=== PATIENT | female | born 1975 ===

== ENCOUNTER 2017-05-08 07:48 | Emergency (ER) | payer SELFPAY ==
[2017-05-08 08:04] VITALS: PULSE 105; RESP 18; TEMP 99.1; O2SAT 100
[2017-05-08 08:05] VITALS: BP 142/88
[2017-05-08] MEDS ORDERED: Amoxicillin-Clav 875-125 mg Tab PO STA (08:18)
--- NOTE | 2017-05-08 08:19 | ED PDOC ---
Arrival/HPI - General Chief Complaint: Dental Pain Time Seen by Provider: 05/08/17 07:57 Historian: Patient - History of Present Illness Narrative History of Present Illness (Text): 05/08/17 08:05 Ignacia Costa is a 41 year old female who presents to the emergency department complaining of Right lower and Left upper gum pain after recent extraction and sores to gums behind two front teeth for a few days. Patient states that she was recently in a [place] [facility] and had 3 teeth extracted (2 from upper left and 1 from lower right) and has experienced pain and swelling to those areas. Patient says that she began to eat with only her two front teeth but began to develop sores to the gums behind them. Patient states that she intermittently bleeds from her gums and notes to have experienced a fever of 101 degrees which resolved after taking Tylenol. Patient confirms to have gargled with peroxide, eaten soft foods and has taken Tylenol and Motrin for pain to no relief. Patient denies any other complaints at this time. PMD: None Time/Duration: < week Symptom Onset: Gradual Symptom Course: Unchanged Severity Level: Mild Activities at Onset: Light Context: Home Past Medical History - Provider Review Nursing Documentation Reviewed: Yes - Infectious Disease Hx of Infectious Diseases: None - Psychiatric Hx Substance Use: No - Surgical History Hx Section: Yes (x1) Family/Social History - Physician Review Nursing Documentation Reviewed: Yes Family/Social History: No Known Family HX Smoking Status: Light Smoker < 10 Cigarettes Daily Hx Alcohol Use: No Hx Substance Use: No Allergies/Home Meds Allergies/Adverse Reactions: Allergies No Known Allergies Allergy (Verified 05/08/17 08:12) Review of Systems - Physician Review All systems were reviewed & negative as marked: Yes - Review of Systems Eyes: absent: Vision Changes ENT: Other (Pain to gum s/p extraction and sores to upper gums behind front teeth). absent: Hearing Changes Respiratory: absent: SOB, Cough Cardiovascular: absent: Chest Pain Gastrointestinal: absent: Abdominal Pain Genitourinary Female: absent: Dysuria, Frequency Physical Exam Vital Signs Reviewed: Yes Vital Signs Temp Pulse Resp BP Pulse Ox 05/08/17 07:58 99.1 F 105 H 18 142/88 100 Temperature: Afebrile Blood Pressure: Normal Pulse: Tachycardic Respiratory Rate: Normal Appearance: Positive for: Well-Appearing, Non-Toxic, Comfortable Pain Distress: None Mental Status: Positive for: Alert and Oriented X 3 - Systems Exam Head: Present: Atraumatic, Normocephalic Pupils: Present: PERRL Extroacular Muscles: Present: EOMI Conjunctiva: Present: Normal Mouth: Present: Other (Right lower gums normal; Left Upper gums miidy erythematous, slight tender to touch, no bleed, pus, or fluctuants; Sores to gums behind two front teeth) Neck: Present: Normal Range of Motion Respiratory/Chest: Present: Clear to Auscultation, Good Air Exchange. No: Respiratory Distress, Accessory Muscle Use Cardiovascular: Present: Regular Rate and Rhythm, Normal S1, S2. No: Murmurs Abdomen: Present: Normal Bowel Sounds. No: Tenderness, Distention, Peritoneal Signs Back: Present: Normal Inspection Upper Extremity: Present: Normal Inspection. No: Cyanosis, Edema Lower Extremity: Present: Normal Inspection. No: Edema Neurological: Present: GCS=15, CN II-XII Intact, Speech Normal Skin: Present: Warm, Dry, Normal Color. No: Rashes Psychiatric: Present: Alert, Oriented x 3, Normal Insight, Normal Concentration Medical Decision Making ED Course and Treatment: 05/08/17 08:05 Impression: Ignacia Costa is a 41 year old female complaining of right lower and Left upper gum pain s/p extraction and bumps to gums behind to front teeth. Differential Diagnosis included but are not limited to: Toothache Plan: -- Augmentin and Toradol -- Patient will f/u with her dentist this week. - Medication Orders Current Medication Orders: Discontinued Medications Amoxicillin/Clavulanate Potassium (Augmentin 875 Mg-125 Mg Tab) 1 tab PO STAT STA PRN Reason: Protocol Stop: 05/08/17 08:19 Last Admin: 05/08/17 08:44 Dose: 1 tab Ketorolac Tromethamine (Toradol) 60 mg IM STAT STA Stop: 05/08/17 08:19 Last Admin: 05/08/17 08:43 Dose: 60 mg - Scribe Statement The provider has reviewed the documentation as recorded by the Alexandra Vivas Provider Scribe Attestation: All medical record entries made by the Burakibleeanna were at my direction and personally dictated by me. I have reviewed the chart and agree that the record accurately reflects my personal performance of the history, physical exam, medical decision making, and the department course for this patient. I have also personally directed, reviewed, and agree with the discharge instructions and disposition. Disposition/Present on Arrival - Present on Arrival Any Indicators Present on Arrival: No History of DVT/PE: No History of Uncontrolled Diabetes: No Urinary Catheter: No History of Decub. Ulcer: No History Surgical Site Infection Following: None - Disposition Have Diagnosis and Disposition been Completed?: Yes Diagnosis: Pain in gums Disposition: HOME/ ROUTINE Disposition Time: 08:56 Patient Plan: Discharge Condition: IMPROVED Discharge Instructions (ExitCare): Toothache (ED) Additional Instructions: Ms Costa, thank you for letting us take care of you today. Your provider was Dr. Garcia. You were treated for Gum Pain. The emergency medical care you received today was directed at your acute symptoms. If you were prescribed any medication, please fill it and take as directed. It may take several days for your symptoms to resolve. Return to the Emergency Department if your symptoms worsen, do not improve, or if you have any other problems. Please contact your doctor or call one of the physicians/clinics you have been referred to that are listed on the Patient Visit Information form that is included in your discharge packet. Bring any paperwork you were given at discharge with you along with any medications you are taking to your follow up visit. Our treatment cannot replace ongoing medical care by a primary care provider (PCP) outside of the emergency department. Thank you for allowing the [facility] team to be part of your care today. If you had an X-Ray or CT scan: A Radiologist will review the ED reading if any change in treatment is needed we will contact you. If you had a blood, urine, or wound culture: It will take several days for the results, if any change in treatment is needed we will contact you. If you had an STI test: It will take 48 hours for the results. Please call after 1 week if you have not heard back. Prescriptions: Acetaminophen with Codeine [Tylenol with Codeine #3 Tablet] 1 each PO Q4 #14 tablet Amoxicillin/Clavulanate [Augmentin 875 MG-125 MG] 1 tab PO BID #14 tab Referrals: Jerri Kate, [Primary Care Provider] - Follow up with primary Forms: [employer] ([place]ronesian), WORK NOTE
== END 2017-05-08 08:57 | disposition home or self-care (01) ==
LOC: ED 07:48
DX: K06.8 Other specified disorders of gingiva and edentulous alveolar ridge (principal); F17.210 Nicotine dependence, cigarettes, uncomplicated
CPT/HCPCS: 96372; 99282; J1885

== ENCOUNTER 2018-05-14 07:38 | Emergency (ER) | payer SELFPAY ==
[2018-05-14 08:00] VITALS: RESP 18; TEMP 98.1; O2SAT 99; BMI 41.1
--- NOTE | 2018-05-14 09:13 | ED PDOC ---
Arrival/HPI - General Chief Complaint: Upper Extremity Problem/Injury Time Seen by Provider: 05/14/18 07:41 Historian: Patient - History of Present Illness Narrative History of Present Illness (Text): 05/14/18 09:10 Patient is a 42 yo female, denies any past medical history, presents to the Emergency Department complaining of three weeks of persistent and severe neck pain. Patient denies known injury or trauma. States that she "woke up with neck pain" three weeks ago. Pain is constant, worse with turning her head and movements, and will radiate to shoulder and down left arm. Patient reports sensation of "dropping things" with her left hand because of wrist discomfort but feels this was happening before developing neck pain. No leg weakness. No headaches. Denies visual symptoms. No fever. Time/Duration: > week Symptom Onset: Gradual Symptom Course: Worsening Past Medical History - Infectious Disease Hx of Infectious Diseases: None - Reproductive Menopause: No - Psychiatric Hx Substance Use: No - Surgical History Hx Section: Yes (x1) - Anesthesia Hx Anesthesia: No Family/Social History Family/Social History: Unknown Family HX Smoking Status: Light Smoker < 10 Cigarettes Daily Hx Alcohol Use: No Hx Substance Use: No Allergies/Home Meds Allergies/Adverse Reactions: Allergies shrimp Allergy (Verified 05/14/18 07:52) ANAPHYLAXIS Review of Systems - Review of Systems Constitutional: absent: Fatigue, Fevers Eyes: absent: Vision Changes ENT: absent: Hearing Changes, Sore Throat, Sinus Congestion Respiratory: absent: SOB Cardiovascular: absent: Chest Pain Gastrointestinal: absent: Abdominal Pain Musculoskeletal: Neck Pain, Other (left shoulder pain) Skin: absent: Rash Neurological: absent: Headache, Dizziness Endocrine: absent: Polyuria Physical Exam Vital Signs Reviewed: Yes Vital Signs Temp Pulse Resp BP Pulse Ox 05/14/18 12:11 82 18 159/85 H 99 05/14/18 07:54 98.1 F 88 18 149/80 99 Temperature: Afebrile Blood Pressure: Hypertensive Appearance: Positive for: Uncomfortable Pain Distress: Severe Mental Status: Positive for: Alert and Oriented X 3 - Systems Exam Head: Present: Atraumatic Pupils: Present: PERRL Extroacular Muscles: Present: EOMI Mouth: Present: Moist Mucous Membranes Pharnyx: No: ERYTHEMA Nose (Internal): Present: Normal Inspection, No Active Bleeding Neck: Present: MIDLINE TENDERNESS, Paraspinal Tenderness, Trachea Midline, Other (difficulty rotating neck due to pain). No: Meningeal Signs, JVD, Lymphadenopathy Respiratory/Chest: Present: Clear to Auscultation. No: Respiratory Distress Cardiovascular: Present: Regular Rate and Rhythm Abdomen: No: Tenderness Back: No: CVA Tenderness Upper Extremity: Present: Other (palpable pain to left wrist no edema or erythema, median/radial/ulnar motor and sensory function intact, no erythema, strong distal pulses, no elbow pain). No: Cyanosis, Edema Lower Extremity: Present: Neurovascularly Intact. No: Edema Neurological: Present: Speech Normal, Motor Func Grossly Intact, Normal Sensory Function Skin: Present: Warm Psychiatric: Present: Alert, Normal Insight, Normal Concentration Medical Decision Making ED Course and Treatment: Patient has had symptoms for several weeks, no known trauma. She states left wrist discomfort prior to neck pain. On exam, median/radial/ulnar motor and sensory function intact. There appears to be focal discomfort with range of motion and palpation of wrist with no elbow or shoulder weakness. Distal pulses strong. MRI ordered as patient with complaint of intermittent left hand weakness and neck pain. 05/14/2018 10:57 Cervical Spinal MRI IMPRESSION: Unremarkable non-contrast enhanced MRI of the cervical spine. Dictator: Alvaro Luciano MD 05/14/18 11:27 Upon re-evaluation, patient has significant improvement in pain and muscle spasms after taking Toradol and Valium. Patient will be discharge with prescription of Naprosyn and Valium. Advised to not work/drive if taking Valium. Suspect in addition wrist sprain vs. carpal tunnel syndrome of wrist, will place wrist immobilizer and d/c with nsaids. Patient will follow-up with her PMD. Treatment plan reviewed with patient stressed need for close follow-up. - RAD Interpretation Radiology Orders: 05/14/18 08:01 SPINAL CANAL CERVICAL W/O CONT [MRI] Stat 05/14/18 11:03 WRIST, LEFT 3 VIEWS [RAD] Stat - Medication Orders Current Medication Orders: Discontinued Medications Diazepam (Valium) 5 mg PO ONCE ONE PRN Reason: Protocol Stop: 05/14/18 08:06 Last Admin: 05/14/18 08:35 Dose: 5 mg Ketorolac Tromethamine (Toradol) 30 mg IVP ONCE ONE Stop: 05/14/18 08:06 Last Admin: 05/14/18 08:35 Dose: 30 mg MAR Pain Assessment Document 05/14/18 08:35 LM (Rec: 05/14/18 08:35 [id number] Pain Reassessment Is this a pain reassessment? No Sleep Is patient sleeping during reassessment? No Presence of Pain Presence of Pain Yes Pain Scale Used Pain Scale Used Numeric Location Pain Location Body Site Neck Description Intensity of Pain at present 8 IVP Administration Document 05/14/18 08:35 LM (Rec: 05/14/18 08:35 [id number]) Charges for Administration # of IVP Administrations 1 Disposition/Present on Arrival - Present on Arrival Any Indicators Present on Arrival: No History of DVT/PE: No History of Uncontrolled Diabetes: No Urinary Catheter: No History of Decub. Ulcer: No History Surgical Site Infection Following: None - Disposition Have Diagnosis and Disposition been Completed?: Yes Diagnosis: Torticollis, Wrist sprain Disposition: HOME/ ROUTINE Disposition Time: 12:00 Patient Plan: Discharge Condition: GOOD Discharge Instructions (ExitCare): Wrist Sprain (DC), Torticollis (DC) Prescriptions: Naproxen 250 mg PO BID PRN #10 tablet PRN Reason: Pain, Mild (1-3) diaZEpam [Valium] 2 mg PO BID PRN #10 tab PRN Reason: Muscle Spasm Referrals: [facility] [Outside] - Follow up with primary [facility] [Outside] - Follow up with primary FAMILY PROVIDER,NO [Primary Care Provider] - Follow up with primary Gregoria Robles MD [Staff Provider] - Follow up with primary Forms: [employer] ([place]i), WORK NOTE
--- NOTE | 2018-05-14 10:58 | MRI ---
Date of service: 05/14/2018 PROCEDURE: MR CERVICAL SPINE WITHOUT CONTRAST HISTORY: neck pain, left arm weakness COMPARISON: None available. TECHNIQUE: Multiecho multiplanar sequences were performed through the cervical spine without the use of intravenous contrast. FINDINGS: There is some straightening of the spine which may be positional Craniocervical junction unremarkable. Vertebral body heights preserved. No marrow signal abnormality. Normal cervical cord. No paraspinal abnormality. C2-C3: No disc herniation, spinal canal stenosis or neural foraminal narrowing. C3-C4: No disc herniation, spinal canal stenosis or neural foraminal narrowing. C4-C5: No disc herniation, spinal canal stenosis or neural foraminal narrowing. C5-C6: No disc herniation, spinal canal stenosis or neural foraminal narrowing. C6-C7: No disc herniation, spinal canal stenosis or neural foraminal narrowing. C7-T1: No disc herniation, spinal canal stenosis or neural foraminal narrowing. OTHER FINDINGS: None. IMPRESSION: Unremarkable non contrast enhanced MRI of the cervical spine.
--- NOTE | 2018-05-14 11:44 | RAD ---
Date of service: 05/14/2018 PROCEDURE: Left Wrist Radiographs. HISTORY: left wrist pain COMPARISON: None. FINDINGS: BONES: Bone alignment and mineralization are normal. There is no acute displaced fracture or bone destruction. JOINTS: Normal. No dislocation. SOFT TISSUES: Normal. OTHER FINDINGS: None. IMPRESSION: No acute fracture or dislocation.
[2018-05-14 12:12] VITALS: BP 159/85; PULSE 82
== END 2018-05-14 12:12 | disposition home or self-care (01) ==
LOC: ED 07:38
DX: M43.6 Torticollis (principal); S63.502A Unspecified sprain of left wrist, initial encounter; X58.XXXA Exposure to other specified factors, initial encounter; Y92.9 Unspecified place or not applicable
CPT/HCPCS: 72141; 73110; 96374; 99284; J1885

== ENCOUNTER 2018-07-18 08:52 | Emergency (ER) | payer BC ==
[2018-07-18 09:28] VITALS: RESP 18; O2SAT 100; BMI 42.0
[2018-07-18] MEDS ORDERED: DiphenhydrAMINE 50 mg/ml Inj IVP STA (09:38)
[2018-07-18] MEDS ORDERED: Sodium Chloride 0.9% 1,000 ML IV STA (09:39)
--- NOTE | 2018-07-18 09:43 | ED PDOC ---
Arrival/HPI - General Chief Complaint: GI Problem Time Seen by Provider: 07/18/18 09:11 Historian: Patient - History of Present Illness Narrative History of Present Illness (Text): 42 y/o F s/p C section presenting to the Emergency department complaining of headaches, nausea, and vomiting x 4 days. Patient notes associated dizzyness, chills, ear pain, and weakness. Patient is gradual in onset with squeezing s ensation bilaterally episodically lasting for a couple of minutes at a time. She denies any fevers, chest pain, shortness of breath, abdominal pain, diarrhea, back pain, hematemesis, syncope, or any other complaint. Time/Duration: < week (4 days) Symptom Onset: Gradual Symptom Course: Unchanged Activities at Onset: Light Context: Home Past Medical History - Provider Review Nursing Documentation Reviewed: Yes - Travel History Have you recently traveled outside [place] w/in the past 3 mons?: No - Infectious Disease Hx of Infectious Diseases: None - Psychiatric Hx Substance Use: No - Surgical History Hx Section: Yes (x1) - Anesthesia Hx Anesthesia: No Family/Social History - Physician Review Nursing Documentation Reviewed: Yes Family/Social History: Unknown Family HX Smoking Status: Light Smoker < 10 Cigarettes Daily Hx Alcohol Use: No Hx Substance Use: No Allergies/Home Meds Allergies/Adverse Reactions: Allergies shrimp Allergy (Verified 07/18/18 09:15) ANAPHYLAXIS Review of Systems - Physician Review All systems were reviewed & negative as marked: Yes - Review of Systems Constitutional: Fatigue Eyes: Normal ENT: Normal Respiratory: Normal. absent: SOB, Cough Cardiovascular: Normal. absent: Chest Pain, Syncope Gastrointestinal: Nausea, Vomiting. absent: Abdominal Pain, Hematemesis Genitourinary Female: Normal. absent: Dysuria, Frequency Musculoskeletal: Normal. absent: Back Pain, Neck Pain Skin: absent: Rash Neurological: Headache, Dizziness. absent: Speech Changes Endocrine: Normal Hemo/Lymphatic: Normal Psychiatric: Normal Physical Exam Vital Signs Reviewed: Yes Vital Signs Temp Pulse Resp BP Pulse Ox 07/18/18 09:19 97.8 F 110 H 18 134/96 H 100 Temperature: Afebrile Blood Pressure: Hypertensive Pulse: Tachycardic Respiratory Rate: Normal Appearance: Positive for: Well-Appearing, Non-Toxic, Comfortable Pain Distress: None Mental Status: Positive for: Alert and Oriented X 3 - Systems Exam Head: Present: Atraumatic, Normocephalic Pupils: Present: PERRL Extroacular Muscles: Present: EOMI Conjunctiva: Present: Normal Mouth: Present: Moist Mucous Membranes Neck: Present: Normal Range of Motion, Other (tenderness to palpation of Cervi caitlyn Spine) Respiratory/Chest: Present: Clear to Auscultation, Good Air Exchange. No: Respiratory Distress, Accessory Muscle Use Cardiovascular: Present: Regular Rate and Rhythm, Normal S1, S2. No: Murmurs Abdomen: No: Tenderness, Distention, Peritoneal Signs Back: Present: Normal Inspection Upper Extremity: Present: Normal Inspection. No: Cyanosis, Edema Lower Extremity: Present: Normal Inspection. No: Edema Neurological: Present: GCS=15, CN II-XII Intact, Speech Normal, Motor Func Grossly Intact, Normal Sensory Function, Normal Cerebellar Funct, Gait Normal Skin: Present: Warm, Dry, Normal Color. No: Rashes Psychiatric: Present: Alert, Oriented x 3, Normal Insight, Normal Concentration Medical Decision Making ED Course and Treatment: 07/18/18 09:45 Impression: 42 year old female presents to the Emergency department complaining of headache, nausea, and vomiting x 4 days Differential Diagnoses Include But Are Not Limited To: Migraine Tension BOO Cluster BOO Subarachnoid Hemorrhage Plan: -- CT Head -- Labs -- Benadryl -- Toradol -- Reglan -- IVF -- UA -- Reassess and disposition Progress Notes: 07/18/18 10:28 UA unremarkable for bacteria in urine. Pending CTH. Patient reassessed reporting improvement in BOO, but continued nausea. Reglan infusing. Will continue to monitor. 07/18/18 11:30 CTH shows empty sella turcica. Patient updated on details and advised to continue supportive measures at home. Scripts as well as follow up with neurologist provided. She is stable for discharge. - RAD Interpretation Narrative RAD Interpretations (Text): 07/18/18 12:27 CT Head reviewed, shows: IMPRESSION: No intracranial mass, hemorrhage or evidence of acute infarct. "Empty sella" noted. - Scribe Statement The provider has reviewed the documentation as recorded by the Scribe Veronica Davis All medical record entries made by the Scribe were at my direction and personally dictated by me. I have reviewed the chart and agree that the record accurately reflects my personal performance of the history, physical exam, medical decision making, and the department course for this patient. I have also personally directed, reviewed, and agree with the discharge instructions and di sposition. Disposition/Present on Arrival - Present on Arrival Any Indicators Present on Arrival: No History of DVT/PE: No History of Uncontrolled Diabetes: No Urinary Catheter: No History of Decub. Ulcer: No History Surgical Site Infection Following: None - Disposition Have Diagnosis and Disposition been Completed?: Yes Diagnosis: Empty sella syndrome, Headache Disposition: HOME/ ROUTINE Disposition Time: 11:53 Patient Plan: Discharge Condition: IMPROVED Discharge Instructions (ExitCare): Migraine Headache (DC), Headache, Adult (DC) Prescriptions: Ibuprofen [Motrin Tab] 600 mg PO Q6H PRN 6 Days #24 tab PRN Reason: Pain, Moderate (4-7) Metoclopramide HCl [Metoclopramide HCl Odt] 10 mg PO PRN PRN #6 tab.rapdis PRN Reason: Nausea/Vomiting Referrals: Freddy Roche MD [Staff Provider] - Follow up with primary Gregoria Robles MD [Medical Doctor] - Follow up with primary [facility] [Outside] - Follow up with primary Forms: [employer] (Citizen Of [place]), WORK NOTE
[2018-07-18 10:01] LABS: URINE BILIRUBIN NEGATIVE (NEGATIVE); URINE BLOOD NEGATIVE (NEGATIVE); URINE GLUCOSE (UA) NEGATIVE (NEGATIVE); URINE LEUKOCYTE ESTERASE NEGATIVE Leu/uL (NEGATIVE); URINE PROTEIN TRACE mg/dL (<30 mg/dL); URINE UROBILINOGEN 0.2 E.U./dL (<1 E.U./dL)
[2018-07-18 10:03] LABS: URINE APPEARANCE CLEAR (CLEAR); URINE COLOR YELLOW (YELLOW)
[2018-07-18 10:16] LABS: URINE BACTERIA OCC (NEG); URINE RBC 0 - 2 /hpf (0-2); URINE WBC 0 - 2 /hpf (0-6)
[2018-07-18 10:21] LABS: EOS % 0.4 % (1.5-5.0); GRAN # 1.47 (1.4-6.5); HEMOGLOBIN 12.5 g/dL (12.0-16.0); LYMPH # 2.3 (1.2-3.4); MEAN CELL VOLUME 83.7 fl (80.0-105.0); MEAN CORPUSCULAR HEMOGLOBIN 28.7 pg (25.0-35.0); MEAN CORPUSCULAR HGB CONC 34.3 g/dl (31.0-37.0); MEAN PLATELET VOLUME 10.1 fl (7.0-11.0); MONO # 0.8 (0.1-0.6); MONO % 16.6 % (1.0-6.0); RBC 4.35 10^6/uL (3.5-6.1); RED CELL DISTRIBUTION WIDTH 16.4 % (11.5-14.5); WHITE BLOOD COUNT 4.6 10^3/ul (4.5-11.0)
[2018-07-18 10:31] LABS: BLOOD UREA NITROGEN 8 mg/dL (7-21); CALCIUM 9.3 mg/dL (8.4-10.5); GFR NON-AFRICAN AMERICAN > 60
[2018-07-18 10:32] LABS: ALB/GLOB RATIO 0.8 (1.1-1.8); ALT/SGPT 30 U/L (7-56); AST/SGOT 27 U/L (14-36)
--- NOTE | 2018-07-18 11:31 | CT ---
Date of service: 07/18/2018 PROCEDURE: CT HEAD WITHOUT CONTRAST. HISTORY: BOO for 3 days COMPARISON: None available. TECHNIQUE: Axial computed tomography images were obtained through the head/brain without intravenous contrast. Radiation dose: Total exam DLP = 947.41 mGy-cm. This CT exam was performed using one or more of the following dose reduction techniques: Automated exposure control, adjustment of the mA and/or kV according to patient size, and/or use of iterative reconstruction technique. FINDINGS: HEMORRHAGE: No intracranial hemorrhage. BRAIN: No mass effect or edema. No atrophy or chronic microvascular ischemic changes. Incidentally noted flattening of the pituitary along the floor of the sella turcica, so-called "empty sella". There is a known association with headache. VENTRICLES: Unremarkable. No hydrocephalus. CALVARIUM: Unremarkable. PARANASAL SINUSES: Unremarkable as visualized. No significant inflammatory changes. MASTOID AIR CELLS: Unremarkable as visualized. No inflammatory changes. OTHER FINDINGS: None. IMPRESSION: No intracranial mass, hemorrhage or evidence of acute infarct. "Empty sella" noted. See above
[2018-07-18 12:42] VITALS: BP 133/91; PULSE 91; TEMP 98
== END 2018-07-18 12:30 | disposition home or self-care (01) ==
LOC: ED 08:52
DX: R51 Headache (principal); E23.6 Other disorders of pituitary gland
CPT/HCPCS: 70450; 80053; 81001; 85025; 96374; 96375; 99284; J1200; J1885; J2765; J7030

== ENCOUNTER 2018-08-01 07:47 | Emergency (ER) | payer BC ==
[2018-08-01 07:51] VITALS: BMI 43.8
[2018-08-01 08:55] LABS: BASO # 0.01 K/mm3 (0.0-2.0); BASO % 0.2 % (0.0-3.0); EOS % 0.4 % (1.5-5.0); GRAN % 26.7 % (50.0-68.0); HEMOGLOBIN 9.7 g/dL (12.0-16.0); LYMPH # 2.5 (1.2-3.4); LYMPH % 48.5 % (22.0-35.0); MEAN CELL VOLUME 84.9 fl (80.0-105.0); MEAN CORPUSCULAR HEMOGLOBIN 28.7 pg (25.0-35.0); MEAN CORPUSCULAR HGB CONC 33.8 g/dl (31.0-37.0); MEAN PLATELET VOLUME 10.3 fl (7.0-11.0); MONO # 1.3 (0.1-0.6); MONO % 24.2 % (1.0-6.0); PLATELET COUNT 148 10^3/uL (120.0-450.0); RBC 3.38 10^6/uL (3.5-6.1); RED CELL DISTRIBUTION WIDTH 16.8 % (11.5-14.5); WHITE BLOOD COUNT 5.2 10^3/uL (4.5-11.0)
--- NOTE | 2018-08-01 09:09 | ED PDOC ---
Arrival/HPI - General Chief Complaint: Chest Pain Time Seen by Provider: 08/01/18 08:13 Historian: Patient - History of Present Illness Narrative History of Present Illness (Text): 08/01/18 09:00 A 42 year old female, whose past medical history includes , presents to the emergency department complaining of chest pain for the past few days. Patient describes pain as left-sided pressure. Mentions also experiencing dyspne a on exertion. Patient denies any fever, or any other complaints at this time. No PMD Past Medical History - Provider Review Nursing Documentation Reviewed: Yes - Infectious Disease Hx of Infectious Diseases: None - Reproductive Menopause: No - Cardiac Hx Hypertension: Yes - Pulmonary Hx Respiratory Disorders: No - Neurological Other/Comment: empty sella syndrom - HEENT Hx HEENT Disorder: No - Renal Hx Renal Disorder: No - Genitourinary/Gynecological Hx Genitourinary Disorders: No - Psychiatric Hx Substance Use: No - Surgical History Hx Section: Yes (x1) - Anesthesia Hx Anesthesia: No Family/Social History - Physician Review Nursing Documentation Reviewed: Yes Family/Social History: No Known Family HX Smoking Status: Light Smoker < 10 Cigarettes Daily Hx Alcohol Use: No Hx Substance Use: No Allergies/Home Meds Allergies/Adverse Reactions: Allergies shrimp Allergy (Verified 08/01/18 07:58) ANAPHYLAXIS Review of Systems - Physician Review All systems were reviewed & negative as marked: Yes - Review of Systems Constitutional: absent: Fevers, Night Sweats Respiratory: absent: SOB Cardiovascular: absent: Chest Pain Gastrointestinal: Abdominal Pain. absent: Diarrhea, Nausea, Vomiting Neurological: absent: Headache, Dizziness Physical Exam Vital Signs Reviewed: Yes Vital Signs Temp Pulse Resp BP Pulse Ox 08/01/18 07:55 98.9 F 108 H 20 118/75 100 Temperature: Afebrile Blood Pressure: Normal Pulse: Regular Respiratory Rate: Normal Appearance: Positive for: Well-Appearing, Non-Toxic, Comfortable, Other (obese) Pain Distress: None Mental Status: Positive for: Alert and Oriented X 3 - Systems Exam Head: Present: Atraumatic, Normocephalic Pupils: Present: PERRL Extroacular Muscles: Present: EOMI Conjunctiva: Present: Normal Mouth: Present: Moist Mucous Membranes Neck: Present: Normal Range of Motion Respiratory/Chest: Present: Clear to Auscultation, Good Air Exchange. No: Respiratory Distress, Accessory Muscle Use Cardiovascular: Present: Regular Rate and Rhythm, Normal S1, S2. No: Murmurs Abdomen: No: Tenderness, Distention, Peritoneal Signs Rectal: Present: Other (patient refuses.) Back: Present: Normal Inspection Upper Extremity: Present: Normal Inspection. No: Cyanosis, Edema Lower Extremity: Present: Normal Inspection. No: Edema Neurological: Present: GCS=15, CN II-XII Intact, Speech Normal Skin: Present: Warm, Dry, Normal Color. No: Rashes Psychiatric: Present: Alert, Oriented x 3, Normal Insight, Normal Concentration Medical Decision Making ED Course and Treatment: 08/01/18 09:04 Impression: 42 year old female with chest pain. Plan: -- EKG -- Chest X-ray -- Angio Chest CT -- Labs -- Urinalysis -- Reassess and disposition Prior Visits: Notes and results from previous visits were reviewed. Patient was last seen in the emergency department on 07/18/2018 for headaches, nausea, and vomiting. patient was discharged home. Progress Notes: EKG: Ordered, reviewed, and independently interpreted the EKG. Rate : 119 BPM Rhythm : Sinus tachycardia Interpretation : No ST-segment elevations or depressions, no T-wave inversions, normal intervals. Comparison : No previous EKG for comparison. 08/01/2018 11:52 Chest X-ray IMPRESSION: No active disease. Dictator: Jenn Vila MD 08/01/2018 12:[address] IMPRESSION: Suboptimal examination due to missed olus, allowing for this no CTA evidence for acute central pulmonary embolism. Clear lungs. Dictator: Jenn Vila MD Leaving Against Medical Advice (AMA): The patient is choosing to leave against medical advice. I have personally e xplained to the patient that choosing to do so may result in permanent bodily harm or . I have discussed at great length that without further evaluation and monitoring there may be unforeseen circumstances and/or deterioration causing permanent bodily harm or as a result of their choice. The patient is alert, oriented, and shows the mental capacity to make clear decisions regarding the patients health care at this time. The patient continues to wish to leave against medical advice. In light of the patients decision to leave against medical advice, follow-up has been arranged and the patient is aware of the importance to following up as instructed. The patient has been advised that they should return to the emergency room immediately if they change their mind at any time, or if their condition begins to change or worsen in any way. 08/01/18 13:[address], request v/q scan, pt refuses, understands risk of blood clot. also requests admission for cp. she refuses. states she will see pmd friday. 08/01/18 15:56 - Lab Interpretations Lab Results: 08/01/18 08:30 Lab Results 08/01/18 08:30: WBC 5.2, RBC 3.38 L, Hgb 9.7 L D, Hct 28.7 L, MCV 84.9, MCH 28.7, MCHC 33.8, RDW 16.8 H, Plt Count 148, MPV 10.3, Gran % 26.7 L, Lymph % (Auto) 48.5 H, [place] % (Auto) 24.2 H, Eos % (Auto) 0.4 L, Baso % (Auto) 0.2, Gran # 1.40, Lymph # (Auto) 2.5, [place] # (Auto) 1.3 H, Eos # (Auto) 0.0, Baso # (Auto) 0.01, Neutrophils % (Manual) Pending, Lymphocytes % (Manual) Pending, Monocytes % (Manual) Pending I have reviewed the lab results: Yes - RAD Interpretation Radiology Orders: 08/01/18 08:18 CHEST PORTABLE [RAD] Stat - Scribe Statement The provider has reviewed the documentation as recorded by the Alexandra Kwok Provider Scribe Attestation: All medical record entries made by the Burakibleeanna were at my direction and person ally dictated by me. I have reviewed the chart and agree that the record accurately reflects my personal performance of the history, physical exam, medical decision making, and the department course for this patient. I have also personally directed, reviewed, and agree with the discharge instructions and disposition. Disposition/Present on Arrival - Present on Arrival Any Indicators Present on Arrival: No History of DVT/PE: No History of Uncontrolled Diabetes: No Urinary Catheter: No History of Decub. Ulcer: No History Surgical Site Infection Following: None - Disposition Have Diagnosis and Disposition been Completed?: Yes Diagnosis: Chest pain, Left against medical advice, Elevated d-dimer Disposition: HOME/ ROUTINE Disposition Time: 12:00 Condition: UNKNOWN Discharge Instructions (ExitCare): Chest Pain, Leaving Against Medical Advice, Chest Pain (ED) Additional Instructions: return to er with worsening symptoms or concerns. Referrals: John Meza MD [Staff Provider] - Follow up with primary Forms: [employer] ([place])
[2018-08-01 09:14] LABS: ALB/GLOB RATIO 0.7 (1.1-1.8); ALBUMIN 3.5 g/dL (3.0-4.8); ALT/SGPT 22 U/L (7-56); AST/SGOT 18 U/L (14-36); BLOOD UREA NITROGEN 9 mg/dL (7-21); CALCIUM 9.2 mg/dL (8.4-10.5); GFR NON-AFRICAN AMERICAN > 60
[2018-08-01 09:23] LABS: B-TYPE NATRIURETIC PEPTIDE 192 pg/mL (0-450); TROPONIN I < 0.01 ng/mL
[2018-08-01 09:26] LABS: INR 1.15; PARTIAL THROMBOPLASTIN TIME 30.8 Seconds (25.1-36.5); PROTHROMBIN TIME 13.3 SECONDS (9.4-12.5)
[2018-08-01 09:35] LABS: LYMPHOCYTE 54 % (22.0-35.0); MONOCYTE 20 % (1.0-6.0); NEUTROPHIL 26 % (50.0-70.0); NUCLEATED RED BLOOD CELL 3 %; PLATELET ESTIMATE NORMAL (NORMAL)
[2018-08-01 10:25] VITALS: RESP 18
[2018-08-01] MEDS ORDERED: Iohexol 350 MG/100 ML VIAL ONE (11:38)
--- NOTE | 2018-08-01 11:55 | RAD ---
Date of service: 08/01/2018 HISTORY: Chest pain COMPARISON: No prior. FINDINGS: LUNGS: The lungs are well inflated and clear. PLEURA: No pleural effusions or pneumothorax. CARDIOVASCULAR: The heart is normal in size. No aortic atherosclerotic calcification present. OSSEOUS STRUCTURES: Within normal limits for the patient's age. VISUALIZED UPPER ABDOMEN: Normal. OTHER FINDINGS: None. IMPRESSION: No active pulmonary disease.
--- NOTE | 2018-08-01 12:38 | CT ---
Date of service: 08/01/2018 PROCEDURE: CT Chest with contrast (Pulmonary Angiogram) HISTORY: sob elevated dimer COMPARISON: Plain radiograph performed earlier the same day. TECHNIQUE: Axial computed tomography images were obtained of the chest in the pulmonary arterial phase of enhancement. Coronal and sagittal reformatted images were created and reviewed. Intravenous contrast dose: 100 mL Omnipaque 350 Radiation dose: Total exam DLP = 459.39 mGy-cm. This CT exam was performed using one or more of the following dose reduction techniques: Automated exposure control, adjustment of the mA and/or kV according to patient size, and/or use of iterative reconstruction technique. FINDINGS: PULMONARY ARTERIES: Examination is suboptimal for evaluation of pulmonary embolism due to missed bolus. Allowing for this, there are no filling defects in the central pulmonary arteries to suggest pulmonary embolism. AORTA: No acute findings. No thoracic aortic aneurysm. LUNGS: There are low lung volumes. No nodule, mass or pulmonary consolidation. PLEURAL SPACES: No effusion or pneumothorax. HEART: No atherosclerotic aortic calcifications or mural plaques present. No cardiomegaly. No significant pericardial effusion. LYMPH NODES: No pathologic lymphadenopathy. BONES, CHEST WALL: Within normal limits for the patient's age. No fracture or destructive lesion OTHER FINDINGS: Unremarkable. IMPRESSION: Suboptimal examination due to missed bolus, allowing for this no CTA evidence for acute central pulmonary embolism. Clear lungs.
[2018-08-01 12:56] VITALS: BP 108/77; PULSE 77; TEMP 98.6; O2SAT 99
--- NOTE | 2018-08-02 09:29 | CARD ---
APPROVED REPORT Date of service: 08/01/2018 EKG Measurement Heart [id number] <Conclusion> Sinus tachycardia Minimal voltage criteria for LVH, may be normal variant NSSTW changes prolonged QTc
== END 2018-08-01 12:56 | disposition home or self-care (01) ==
LOC: ED 07:47
DX: R07.9 Chest pain, unspecified (principal); R79.1 Abnormal coagulation profile; I10 Essential (primary) hypertension; F17.210 Nicotine dependence, cigarettes, uncomplicated
CPT/HCPCS: 71045; 71275; 80053; 82550; 83615; 83735; 83880; 84484; 84702; 85025; 85378; 85610; 85730; 93005; 99284; Q9967

== ENCOUNTER 2018-09-03 10:38 | Inpatient (IN) | payer BC ==
[2018-09-03 11:14] VITALS: BMI 40.7
[2018-09-03] MEDS ORDERED: Sodium Chloride 0.9% 1,000 ML IV STA (11:46)
[2018-09-03 12:13] LABS: BASO # 0.01 K/mm3 (0.0-2.0); BASO % 0.1 % (0.0-3.0); EOS % 0.1 % (1.5-5.0); GRAN # 2.81 (1.4-6.5); HEMOGLOBIN 7.4 g/dL (12.0-16.0); LYMPH # 3.8 (1.2-3.4); LYMPH % 39.4 % (22.0-35.0); MEAN CELL VOLUME 88.9 fl (80.0-105.0); MEAN CORPUSCULAR HEMOGLOBIN 30.3 pg (25.0-35.0); MEAN CORPUSCULAR HGB CONC 34.1 g/dl (31.0-37.0); MEAN PLATELET VOLUME 9.4 fl (7.0-11.0); MONO # 3.1 (0.1-0.6); MONO % 31.4 % (1.0-6.0); PLATELET COUNT 120 10^3/uL (120.0-450.0); RBC 2.44 10^6/uL (3.5-6.1); RED CELL DISTRIBUTION WIDTH 17.3 % (11.5-14.5); URINE BILIRUBIN NEGATIVE (NEGATIVE); URINE BLOOD NEGATIVE (NEGATIVE); URINE GLUCOSE (UA) NEGATIVE (NEGATIVE); URINE LEUKOCYTE ESTERASE NEGATIVE Leu/uL (NEGATIVE); URINE PROTEIN 30 mg/dL (<30 mg/dL); URINE UROBILINOGEN 0.2 E.U./dL (<1 E.U./dL); WHITE BLOOD COUNT 9.7 10^3/uL (4.5-11.0)
[2018-09-03 12:15] LABS: URINE APPEARANCE CLOUDY (CLEAR); URINE COLOR YELLOW (YELLOW)
[2018-09-03 12:17] LABS: URINE RBC NEGATIVE /hpf (0-2)
[2018-09-03 12:18] LABS: URINE BACTERIA MANY (NEG); URINE EPITHELIAL CELLS MANY /hpf (0-5)
[2018-09-03 12:20] LABS: ALB/GLOB RATIO 0.8 (1.1-1.8); ALBUMIN 3.9 g/dL (3.0-4.8); ALT/SGPT 21 U/L (7-56); AMYLASE 65 U/L (35-125); AST/SGOT 26 U/L (14-36); BLOOD UREA NITROGEN 13 mg/dL (7-21); CALCIUM 9.5 mg/dL (8.4-10.5); GFR NON-AFRICAN AMERICAN > 60; LIPASE 102 U/L (23-300)
--- NOTE | 2018-09-03 12:21 | ED PDOC ---
Arrival/HPI - General Chief Complaint: Dizziness/Lightheaded Time Seen by Provider: 09/03/18 10:50 Historian: Patient - History of Present Illness Narrative History of Present Illness (Text): 09/03/18 13:56 42yr old female with 2 month history of worsening dizziness, fatigue, chest pain, shortness of breath and vomiting. pt states she is being followed by a neurologist for empty sellar syndrome and when she saw him after MRI last week she was advised to f/u with PMD because he said her current symptoms were not related to empty cellar syndrome. pt states she saw her PMD yesterday and was advised to come to er. pt with continued dizziness and feeling completely fatigued. pt states she vomits 1-2times daily for the past 2 months. pt states she has been feeling short of breath and having intermittent chest pains. pt denies abdominal pain. no fever/chills. no trauma or injury. no other complaints. Time/Duration: > month (2 months) Symptom Onset: Gradual Symptom Course: Worsening Severity Level: Mild Past Medical History - Provider Review Nursing Documentation Reviewed: Yes - Travel History Have you recently traveled outside [place] w/in the past 3 mons?: No - Infectious Disease Hx of Infectious Diseases: None - Cardiac Hx Hypertension: Yes - Pulmonary Hx Respiratory Disorders: No - Neurological Other/Comment: empty sella syndrom - HEENT Hx HEENT Disorder: No - Renal Hx Renal Disorder: No - Genitourinary/Gynecological Hx Genitourinary Disorders: No - Psychiatric Hx Substance Use: No - Surgical History Hx Section: Yes (x1) - Anesthesia Hx Anesthesia: No Family/Social History - Physician Review Nursing Documentation Reviewed: Yes Family/Social History: Unknown Family HX Smoking Status: Light Smoker < 10 Cigarettes Daily Hx Alcohol Use: No Hx Substance Use: No Allergies/Home Meds Allergies/Adverse Reactions: Allergies shrimp Allergy (Verified 08/01/18 07:58) ANAPHYLAXIS Home Medications: Home Meds Medication Instructions Recorded Confirmed Candesartan Cilexetil [Atacand] 16 mg PO DAILY 09/03/18 09/03/18 Doxepin HCl [Silenor] 6 mg PO HS 09/03/18 09/03/18 Review of Systems - Review of Systems Constitutional: Fatigue. absent: Fevers Eyes: absent: Photophobia, Eye Pain ENT: absent: Sore Throat, Sinus Congestion Respiratory: SOB. absent: Cough Cardiovascular: Chest Pain, Palpitations Gastrointestinal: Nausea, Vomiting. absent: Abdominal Pain, Constipation, Diarrhea Genitourinary Female: absent: Dysuria, Frequency, Hematuria Musculoskeletal: absent: Arthralgias, Back Pain, Neck Pain Skin: absent: Rash, Pruritis Neurological: Dizziness. absent: Headache Psychiatric: absent: Anxiety, Depression Physical Exam Vital Signs Reviewed: Yes Vital Signs Temp Pulse Resp BP Pulse Ox 09/03/18 10:38 98.4 F 120 H 18 119/59 L 99 Temperature: Afebrile Blood Pressure: Normal Pulse: Tachycardic Respiratory Rate: Normal Appearance: Positive for: Well-Appearing, Non-Toxic, Comfortable Pain Distress: None Mental Status: Positive for: Alert and Oriented X 3 Finger Stick Blood Glucose: 253 - Systems Exam Head: Present: Atraumatic Mouth: Present: Moist Mucous Membranes Neck: Present: Normal Range of Motion Respiratory/Chest: Present: Clear to Auscultation, Good Air Exchange. No: Respiratory Distress, Accessory Muscle Use Cardiovascular: Present: Normal S1, S2, Peripheal Pulses Present, Tachycardic. No: Murmurs Abdomen: No: Tenderness, Distention, Rebound, Guarding Back: Present: Normal Inspection Upper Extremity: Present: Normal ROM Lower Extremity: Present: Normal ROM. No: Edema Neurological: Present: GCS=15, Speech Normal Skin: Present: Warm, Dry, Normal Color. No: Rashes Psychiatric: Present: Alert, Oriented x 3 Medical Decision Making ED Course and Treatment: 09/03/18 15:22 42-year-old female presents with dizziness, fatigue, intermittent chest pain and shortness of breath with multiple episodes of vomiting worsening over the past 2 months CBC shows a hemoglobin of 7.4 CMP shows a glucose of 248 Troponin is negative D-dimer is elevated EKG shows sinus tachycardia at [address] elevations QTC 452 Consent for blood transfusion obtained cxr; wnl CT Angio:FINDINGS: PULMONARY ARTERIES: Unremarkable. No pulmonary embolism. AORTA: No acute findings. No thoracic aortic aneurysm. No aortic atherosclerotic calcification or mural plaque present. LUNGS: Unremarkable. No nodule, mass or pulmonary consolidation. PLEURAL SPACES: Unremarkable. No effusion or pneumothorax. HEART: Unremarkable. No cardiomegaly. No significant pericardial effusion. LYMPH NODES: No lymphadenopathy. BONES, CHEST WALL: Unremarkable. No fracture or destructive lesion OTHER FINDINGS: Unremarkable. IMPRESSION: Unremarkable CT pulmonary angiogram. No pulmonary embolus. 2 units of PRBCs to be transfused. pt states she has hx of anemia, heavy periods; never was worked up. denies any p rior blood transfusions. case discussed with dr. ayoub. accepts admission. impression; symptomatic anemia, hyperglycemia, tachycardia admit observational status remote tele. - Lab Interpretations Lab Results: 09/03/18 12:02 Lab Results 09/03/18 12:02: Urine Color Yellow, Urine Appearance Cloudy, Urine pH 6.0, Ur Specific [place] 1.025, Urine Protein 30 H, Urine Glucose (UA) Negative, Urine Ketones Trace H, Urine Blood Negative, Urine Nitrate Negative, Urine Bilirubin Negative, Urine Urobilinogen 0.2, Ur Leukocyte Esterase Negative, Urine RBC Negative, Urine WBC 1 - 3, Ur Epithelial Cells Many, Urine Bacteria Many 09/03/18 12:02: WBC 9.7, RBC 2.44 L, Hgb 7.4 L D, Hct 21.7 L, MCV 88.9 D, MCH 30.3, MCHC 34.1, RDW 17.3 H, Plt Count 120, MPV 9.4, Gran % 29.0 L, Lymph % (Auto) 39.4 H, [place] % (Auto) 31.4 H, Eos % (Auto) 0.1 L, Baso % (Auto) 0.1, Gran # 2.81, Lymph # (Auto) 3.8 H, [place] # (Auto) 3.1 H, Eos # (Auto) 0.0, Baso # (Auto) 0.01, Neutrophils % (Manual) Pending, Lymphocytes % (Manual) Pending, Monocytes % (Manual) Pending 09/03/18 11:19: POC Glucose (mg/dL) 258 H - RAD Interpretation Radiology Orders: 09/03/18 11:30 CHEST PORTABLE [RAD] Stat - Medication Orders Current Medication Orders: Sodium Chloride (Sodium Chloride 0.9%) 1,000 mls @ 999 mls/hr IV .Q1H1M STA Stop: 09/03/18 12:46 Last Admin: 09/03/18 12:05 Dose: 999 mls/hr eMAR Start Stop Document 09/03/18 12:05 [place] (Rec: 09/03/18 12:05 [facility]-20) Intravenous Solution Start Date 09/03/18 Start Time 12:05 End Date 09/03/18 End time 13:06 Total Infusion Time 61 Disposition/Present on Arrival - Present on Arrival Any Indicators Present on Arrival: No History of DVT/PE: No History of Uncontrolled Diabetes: No Urinary Catheter: No History of Decub. Ulcer: No History Surgical Site Infection Following: None - Disposition Have Diagnosis and Disposition been Completed?: Yes Diagnosis: Symptomatic anemia, Tachycardia, Hyperglycemia, Nausea & vomiting Disposition: HOSPITALIZED Disposition Time: 13:15 Patient Plan: Discharge Patient Problems: Current Active Problems Problem Status Onset Hyperglycemia Acute Nausea & vomiting Acute Symptomatic anemia Acute Tachycardia Acute Condition: GOOD
[2018-09-03 12:32] LABS: TROPONIN I < 0.01 ng/mL
--- NOTE | 2018-09-03 12:38 | RAD ---
Date of service: 09/03/2018 HISTORY: dizziness, sob COMPARISON: 08/01/2018 FINDINGS: LUNGS: No active pulmonary disease. PLEURA: No significant pleural effusion identified, no pneumothorax apparent. CARDIOVASCULAR: No aortic atherosclerotic calcification present. Normal cardiac size. No pulmonary vascular congestion. OSSEOUS STRUCTURES: No significant abnormalities. VISUALIZED UPPER ABDOMEN: Normal. OTHER FINDINGS: None. IMPRESSION: No active disease.
[2018-09-03 12:48] LABS: LYMPHOCYTE 43 % (22.0-35.0); MONOCYTE 25 % (1.0-6.0); NEUTROPHIL 32 % (50.0-70.0)
[2018-09-03 12:49] LABS: ANISOCYTOSIS SLIGHT; CORRECTED WBC 9.1 K/mm3 (4.5-11.0); HYPOCHROMIA SLIGHT; NUCLEATED RED BLOOD CELL 7 %; POIKILOCYTOSIS SLIGHT; POLYCHROMASIA SLIGHT
[2018-09-03 12:50] LABS: LARGE PLATELETS PRESENT; MICROCYTOSIS SLIGHT
[2018-09-03] MEDS ORDERED: Iodixanol 320 MG/ML 100 ML BOTTLE IV ONE (13:25)
--- NOTE | 2018-09-03 13:51 | CT ---
Date of service: 09/03/2018 PROCEDURE: CT Chest with contrast (Pulmonary Angiogram) HISTORY: sob/dizziness/elevated d-dimer r/o PE COMPARISON: None available. TECHNIQUE: Axial computed tomography images were obtained of the chest in the pulmonary arterial phase of enhancement. Coronal and sagittal reformatted images were created and reviewed. Intravenous contrast dose: 100 cc of Visipaque 320 Radiation dose: Total exam DLP = 455.68 mGy-cm. This CT exam was performed using one or more of the following dose reduction techniques: Automated exposure control, adjustment of the mA and/or kV according to patient size, and/or use of iterative reconstruction technique. FINDINGS: PULMONARY ARTERIES: Unremarkable. No pulmonary embolism. AORTA: No acute findings. No thoracic aortic aneurysm. No aortic atherosclerotic calcification or mural plaque present. LUNGS: Unremarkable. No nodule, mass or pulmonary consolidation. PLEURAL SPACES: Unremarkable. No effusion or pneumothorax. HEART: Unremarkable. No cardiomegaly. No significant pericardial effusion. LYMPH NODES: No lymphadenopathy. BONES, CHEST WALL: Unremarkable. No fracture or destructive lesion OTHER FINDINGS: Unremarkable. IMPRESSION: Unremarkable CT pulmonary angiogram. No pulmonary embolus.
--- NOTE | 2018-09-03 18:43 | CARD ---
APPROVED REPORT Date of service: 09/03/2018 EKG Measurement Heart [id number] <Conclusion> Sinus tachycardia Minimal voltage criteria for LVH, may be normal variant Borderline ECG
[2018-09-03] MEDS ORDERED: Pneumococcal 23-Valent Vaccine IM ONE (21:04)
[2018-09-03] MEDS ORDERED: Influenza Vaccine 60 mcg/0.5 mL SYR (4YR UP) IM ONE (21:04)
[2018-09-03] MEDS: Doxepin HCL 10 mg/mL ORAL SOLUTION PO SCH (21:30)
--- NOTE | 2018-09-04 03:57 | HP ---
DATE OF EXAM: 09/03/2018 CHIEF COMPLAINT: Dizziness and lightheadedness. HISTORY OF PRESENT ILLNESS: Ms. Ignacia Costa is a 42-year-old female with two months' history of worsening dizziness, fatigue, chest pain, headache, shortness of breath, nausea, vomiting, appetite is not good. The patient states that she is being followed up by the neurologist for empty sella syndrome and when she saw him later him after MRI last week, she was advised to follow up with PMD because he said her current symptoms were not related to empty sella syndrome. patient was seen in my office yesterday and was advised to go to the emergency room because the patient was having blurring of vision and was stating that she was not only dizziness, but feeling of passing out and completely fatigued. The patient states that she vomited one or two times a day and for the past 2 months, the patient states that she has been feeling short of breath and having intermittent chest pain and denies abdominal pain. No fever. No chills. I saw the patient in the emergency room, discussion done with physician bankruptcy assistant, Aneta. PAST MEDICAL HISTORY: Hypertension, empty sella syndrome, section, and abnormal menstruation. FAMILY HISTORY: Father and mother noncontributory. HABITS: Light smoker, less than 10 cigarettes per day. Alcohol; no. Substance abuse; no. ALLERGIES: THE PATIENT IS ALLERGIC WITH SHRIMP. HOME MEDICATIONS: Atacand and doxepin. REVIEW OF SYSTEMS: The patient was seen and examined at the bedside in the emergency room. Still feeling fatigue. No fever. No photophobia or eye pain. No sore throat or sinus congestion. Having shortness of breath, but no coughing. Having palpitations. Sometimes getting nausea and vomiting. No abdominal pain, constipation or diarrhea. No dysuria, frequency or hematuria. No arthralgia, back pain or neck pain. No rashes or pruritus. Having dizzy and feeling of passing out. Blurring of vision. PHYSICAL EXAMINATION VITAL SIGNS: Temperature 98.4, pulse 120, respiratory rate 18, blood pressure 120/80 , and pulse oximetry 99. HEENT: Head; normocephalic and atraumatic. Eyes; PERRLA. Extraocular muscles intact. Conjunctivae clear. Nose patent. Mucous membranes moist. NECK: Supple. No carotid bruit. No JVD or thyromegaly. CHEST: Bilaterally symmetrical. HEART: S1 and S2 positive. LUNGS: Clear to auscultation. ABDOMEN: Soft. Bowel sounds present. No organomegaly. EXTREMITIES: No edema. No cyanosis. NEUROLOGIC: The patient is awake and alert. Moving all four extremities. No focal deficits. LABORATORY DATA: White blood cells 9.7, hemoglobin 7.4, hematocrit 21.7, and platelets 120. Sodium 136, potassium 4.6, BUN 13, creatinine 0.8, glucose 258, magnesium 1.6. Urine has 30 protein, trace ketones. ASSESSMENT AND PLAN: Ms. Ignacia Costa is a 42-year-old lady with anemia, symptomatic; hyperglycemia, rule out diabetes mellitus, we will do hemoglobin A1c; hypomagnesemia, replaced; proteinuria and ketonuria. Did CAT scan of the chest, reviewed by me. Chest x-ray is reviewed by me. History of abnormal menstruation, but as per patient recently her menses are normal. Planned for Pap smear long, long time ago. Actually, the patient came to the emergency room couple of weeks ago. PLAN: To admit the patient, but the patient signed against medical advice. After that the patient came in to my office with to look at symptomatic anemia, dizziness, shortness of breath; I sent her to [facility]. Now, I have discussion done with Aneta. The patient has hypertension, restarted Cozaar; doxepin she was taking at night, we restarted and gave Pepcid for gastrointestinal prophylaxis. Called consult with Dr. Ferrera for dizziness, migraine and empty sella syndrome and Dr. Riggs for symptomatic anemia. Type and crossmatch 2 units of packed RBCs and transfuse. Gastrointestinal and deep venous thrombosis prophylaxes. Repeat labs. We will follow up. Mary Pollard MD MTDD
[2018-09-04 06:41] LABS: BLOOD UREA NITROGEN 11 mg/dL (7-21); CALCIUM 9.2 mg/dL (8.4-10.5); GFR NON-AFRICAN AMERICAN > 60
[2018-09-04 06:54] LABS: MEAN CELL VOLUME 87.5 fl (80.0-105.0); MEAN CORPUSCULAR HEMOGLOBIN 29.5 pg (25.0-35.0); MEAN CORPUSCULAR HGB CONC 33.7 g/dl (31.0-37.0); MEAN PLATELET VOLUME 9.2 fl (7.0-11.0); RBC 2.88 10^6/uL (3.5-6.1); RED CELL DISTRIBUTION WIDTH 16.8 % (11.5-14.5); WHITE BLOOD COUNT 8.3 10^3/uL (4.5-11.0)
[2018-09-04 07:23] LABS: HEMOGLOBIN 8.5 g/dL (12.0-16.0)
--- NOTE | 2018-09-04 09:28 | CP.PCM.HP ---
History of Present Illness - History of Present Illness History of Present Illness: Ovidio Guaman- Internal Medicine Resident- Consult Note on Behalf of Hematology/Oncology CC:Generalized weakness HPI: Patient is a 42 year old female with a past medical history of hypertension, migraines, empty sella syndrome, anemia who was admitted for evaluation and treatment of generalized weakness, SOB with exertion, abdominal pain, nausea, vomiting which began 1 month ago with no specific provoking event. Patient was sent to the emergency department by her primary care physician, where she was found to have a hgb of 7.4. Heme/onc was consulted for management of anemia. Patient seen and examined at bedside. It is important to note that the patient was transfused 2units pRBCs. States generalized weakness has significantly improved relative to baseline. States SOB with exertion, abdominal pain, nausea, vomiting have resolved. Offers no new complaints at this time. Denies fevers, chills, headache, changes in his vision/hearing, SOB at rest, chest pain, cough, wheezing, abdominal pain, nausea, vomiting, diarrhea, constipation, and urinary symptoms. PMHx: hypertension, migraines, empty sella syndrome, anemia PSHx: c section ~20 years ago Family History: Father- CAD Social History: social ETOH use, tobacco use 1ppd for 15+ year ago; Denies illicit drug use Allergies: NKDA Home Medications: As per MAR Physical Examination: - Constitutional Appears: No Acute Distress - Head Exam Head Exam: ATRAUMATIC, NORMOCEPHALIC - Eye Exam Eye Exam: EOMI, Normal appearance - ENT Exam ENT Exam: Mucous Membranes Moist - Neck Exam Neck exam: Positive for: Full Rom - Respiratory Exam Respiratory Exam: Clear to Auscultation Bilateral, NORMAL BREATHING PATTERN. absent: Accessory Muscle Use, Rales, Rhonchi, Wheezes, Respiratory Distress - Cardiovascular Exam Cardiovascular Exam: REGULAR RHYTHM, RRR, +S1, +S2. absent: Bradycardia, Tachycardia - GI/Abdominal Exam GI & Abdominal Exam: soft, nontender to palpation, no guarding, no rebound tenderness - Extremities Exam Extremities exam: Positive for: full ROM, normal capillary refill, normal inspection, pedal pulses present. Negative for: calf tenderness, joint swelling, pedal edema, tenderness - Back Exam Back exam: absent: CVA tenderness (L), CVA tenderness (R) - Neurological Exam Neurological exam: Awake, Alert, Oriented x3 - Psychiatric Exam Psychiatric exam: Normal Affect, Normal Mood - Skin Skin Exam: Dry, Warm Assessment and Plan: Patient is a 42 year old female with a past medical history of hypertension, migraines, empty sella syndrome, anemia who was admitted for evaluation and treatment of generalized weakness, SOB with exertion, abdominal pain, nausea, vomiting. Heme/onc was consulted for management of anemia. Anemia - normocytic - Hgb 7.4 to 8.5 - iron, TIBC, ferritin, Vitamin b12, Vitamin B9 ordered and pending - peripheral smear required- will be able to order if patient is made inpatient Please make note this is a complex patient with multiple comorbid medical issues. We will continue to monitor the patient patient aggressively. Time spend with the patient is greater than 45 minutes. Patient case discussed with, and plan approved by attending physician, Dr. Gutierrez. Past Patient History - Infectious Disease Hx of Infectious Diseases: None - Past Social History Smoking Status: Current Some Days Smoker - CARDIAC Hx Cardiac Disorders: Yes Hx Hypertension: Yes - PULMONARY Hx Respiratory Disorders: Yes (SMOKES 2 CIGARETTES A DAY.) - NEUROLOGICAL Hx Neurological Disorder: Yes Other/Comment: empty sella syndrome - HEENT Hx HEENT Problems: No - RENAL Hx Chronic Kidney Disease: No - ENDOCRINE/METABOLIC Hx Endocrine Disorders: No - HEMATOLOGICAL/ONCOLOGICAL Hx Blood Disorders: Yes Hx Anemia: Yes (09-03-18 BLOOD TRANSFUSION) - INTEGUMENTARY Hx Dermatological Problems: No - MUSCULOSKELETAL/RHEUMATOLOGICAL Hx Musculoskeletal Disorders: No Hx Falls: No - GASTROINTESTINAL Hx Gastrointestinal Disorders: No - GENITOURINARY/GYNECOLOGICAL Hx Genitourinary Disorders: Yes (C SECTION X 1) - PSYCHIATRIC Hx Psychophysiologic Disorder: No Hx Substance Use: No - SURGICAL HISTORY Hx Surgeries: Yes (C SECTION X 1) - ANESTHESIA Hx Anesthesia: No Meds Allergies/Adverse Reactions: Allergies Allergy/AdvReac Type Severity Reaction Status Date / Time shrimp Allergy ANAPHYLAXIS Verified 09/03/18 17:49 Results - Vital Signs Recent Vital Signs: Last Vital Signs Temp 98.4 F 09/04/18 06:00 Pulse 90 09/04/18 06:00 Resp 20 09/04/18 06:00 BP 132/72 09/04/18 06:00 Pulse Ox 98 09/04/18 06:00 - Labs Result Diagrams: 09/04/18 05:45 09/04/18 06:00 Labs: Laboratory Results - last 24 hr 09/03/18 09/03/18 09/03/18 11:19 12:02 12:02 WBC 9.7 RBC 2.44 L Hgb 7.4 L D Hct 21.7 L MCV 88.9 D MCH 30.3 MCHC 34.1 RDW 17.3 H Plt Count 120 MPV 9.4 Gran % 29.0 L Lymph % (Auto) 39.4 H [place] % (Auto) 31.4 H Eos % (Auto) 0.1 L Baso % (Auto) 0.1 Gran # 2.81 Lymph # (Auto) 3.8 H [place] # (Auto) 3.1 H Eos # (Auto) 0.0 Baso # (Auto) 0.01 Corrected WBC (Man) 9.1 Neutrophils % (Manual) 32 L Lymphocytes % (Manual) 43 H Monocytes % (Manual) 25 H Nucleated RBC % 7 Large Platelets Present Polychromasia Slight Hypochromasia Slight Poikilocytosis (manual Slight Anisocytosis (manual) Slight Microcytosis (manual) Slight D-Dimer, Quantitative Sodium 136 Potassium 4.6 Chloride 98 Carbon Dioxide 31 Anion Gap 12 BUN 13 Creatinine 0.9 Est GFR ( Amer) > 60 Est GFR (Non-Af Amer) > 60 POC Glucose (mg/dL) 258 H Random Glucose 248 H Calcium 9.5 Total Bilirubin 0.5 AST 26 ALT 21 Alkaline Phosphatase 101 Lactate Dehydrogenase 745 H Total Creatine Kinase 28 L Troponin I < 0.01 Total Protein 9.0 H Albumin 3.9 Globulin 5.1 Albumin/Globulin Ratio 0.8 L Amylase 65 Lipase 102 TSH 3rd Generation Urine Color Urine Appearance Urine pH Ur Specific [place] Urine Protein Urine Glucose (UA) Urine Ketones Urine Blood Urine Nitrate Urine Bilirubin Urine Urobilinogen Ur Leukocyte Esterase Urine RBC Urine WBC Ur Epithelial Cells Urine Bacteria Blood Type Blood Type Confirm Antibody Screen Crossmatch BBK History Checked 09/03/18 09/03/18 09/03/18 12:02 12:02 12:35 WBC RBC Hgb Hct MCV MCH MCHC RDW Plt Count MPV Gran % Lymph % (Auto) [place] % (Auto) Eos % (Auto) Baso % (Auto) Gran # Lymph # (Auto) [place] # (Auto) Eos # (Auto) Baso # (Auto) Corrected WBC (Man) Neutrophils % (Manual) Lymphocytes % (Manual) Monocytes % (Manual) Nucleated RBC % Large Platelets Polychromasia Hypochromasia Poikilocytosis (manual Anisocytosis (manual) Microcytosis (manual) D-Dimer, Quantitative 426 H Sodium Potassium Chloride Carbon Dioxide Anion Gap BUN Creatinine Est GFR ( Amer) Est GFR (Non-Af Amer) POC Glucose (mg/dL) Random Glucose Calcium Total Bilirubin AST ALT Alkaline Phosphatase Lactate Dehydrogenase Total Creatine Kinase Troponin I Total Protein Albumin Globulin Albumin/Globulin Ratio Amylase Lipase TSH 3rd Generation Urine Color Yellow Urine Appearance Cloudy Urine pH 6.0 Ur Specific [place] 1.025 Urine Protein 30 H Urine Glucose (UA) Negative Urine Ketones Trace H Urine Blood Negative Urine Nitrate Negative Urine Bilirubin Negative Urine Urobilinogen 0.2 Ur Leukocyte Esterase Negative Urine RBC Negative Urine WBC 1 - 3 Ur Epithelial Cells Many Urine Bacteria Many Blood Type O POSITIVE Blood Type Confirm Antibody Screen Negative Crossmatch See Detail BBK History Checked No verified bt 09/03/18 09/04/18 09/04/18 13:30 05:45 05:45 WBC 8.3 RBC 2.88 L Hgb 8.5 L Hct 25.2 L MCV 87.5 MCH 29.5 MCHC 33.7 RDW 16.8 H Plt Count 90 L MPV 9.2 Gran % Lymph % (Auto) [place] % (Auto) Eos % (Auto) Baso % (Auto) Gran # Lymph # (Auto) [place] # (Auto) Eos # (Auto) Baso # (Auto) Corrected WBC (Man) Neutrophils % (Manual) Lymphocytes % (Manual) Monocytes % (Manual) Nucleated RBC % Large Platelets Polychromasia Hypochromasia Poikilocytosis (manual Anisocytosis (manual) Microcytosis (manual) D-Dimer, Quantitative Sodium Potassium Chloride Carbon Dioxide Anion Gap BUN Creatinine Est GFR ( Amer) Est GFR (Non-Af Amer) POC Glucose (mg/dL) Random Glucose Calcium Total Bilirubin AST ALT Alkaline Phosphatase Lactate Dehydrogenase Total Creatine Kinase Troponin I Total Protein Albumin Globulin Albumin/Globulin Ratio Amylase Lipase TSH 3rd Generation 2.16 Urine Color Urine Appearance Urine pH Ur Specific [place] Urine Protein Urine Glucose (UA) Urine Ketones Urine Blood Urine Nitrate Urine Bilirubin Urine Urobilinogen Ur Leukocyte Esterase Urine RBC Urine WBC Ur Epithelial Cells Urine Bacteria Blood Type Blood Type Confirm O POSITIVE Antibody Screen Crossmatch BBK History Checked 09/04/18 06:00 WBC RBC Hgb Hct MCV MCH MCHC RDW Plt Count MPV Gran % Lymph % (Auto) [place] % (Auto) Eos % (Auto) Baso % (Auto) Gran # Lymph # (Auto) [place] # (Auto) Eos # (Auto) Baso # (Auto) Corrected WBC (Man) Neutrophils % (Manual) Lymphocytes % (Manual) Monocytes % (Manual) Nucleated RBC % Large Platelets Polychromasia Hypochromasia Poikilocytosis (manual Anisocytosis (manual) Microcytosis (manual) D-Dimer, Quantitative Sodium 135 Potassium 4.1 Chloride 102 Carbon Dioxide 27 Anion Gap 10 BUN 11 Creatinine 0.8 Est GFR ( Amer) > 60 Est GFR (Non-Af Amer) > 60 POC Glucose (mg/dL) Random Glucose 195 H Calcium 9.2 Total Bilirubin AST ALT Alkaline Phosphatase Lactate Dehydrogenase Total Creatine Kinase Troponin I Total Protein Albumin Globulin Albumin/Globulin Ratio Amylase Lipase TSH 3rd Generation Urine Color Urine Appearance Urine pH Ur Specific [place] Urine Protein Urine Glucose (UA) Urine Ketones Urine Blood Urine Nitrate Urine Bilirubin Urine Urobilinogen Ur Leukocyte Esterase Urine RBC Urine WBC Ur Epithelial Cells Urine Bacteria Blood Type Blood Type Confirm Antibody Screen Crossmatch BBK History Checked
--- NOTE | 2018-09-04 09:31 | CP.PCM.CON ---
History of Present Illness - History of Present Illness History of Present Illness: Ovidio Guaman- Internal Medicine Resident- Consult Note on Behalf of Hematology/Oncology CC:Generalized weakness HPI: Patient is a 42 year old female with a past medical history of hypertension, migraines, empty sella syndrome, anemia who was admitted for evaluation and treatment of generalized weakness, SOB with exertion, abdominal pain, nausea, vomiting which began 1 month ago with no specific provoking event. Patient was sent to the emergency department by her primary care physician, where she was found to have a hgb of 7.4. Heme/onc was consulted for management of anemia. Patient seen and examined at bedside. It is important to note that the patient was transfused 2units pRBCs. States generalized weakness has significantly improved relative to baseline. States SOB with exertion, abdominal pain, nausea, vomiting have resolved. Offers no new complaints at this time. Denies fevers, chills, headache, changes in his vision/hearing, SOB at rest, chest pain, cough, wheezing, abdominal pain, nausea, vomiting, diarrhea, blood per rectum, blood in urine, black stools, changes in stool caliber, constipation, and urinary symptoms. PMHx: hypertension, migraines, empty sella syndrome, anemia PSHx: c section ~20 years ago Family History: Father- CAD Social History: social ETOH use, tobacco use 1ppd for 15+ year ago; Denies illicit drug use Allergies: NKDA Home Medications: As per MAR Physical Examination: - Constitutional Appears: No Acute Distress - Head Exam Head Exam: ATRAUMATIC, NORMOCEPHALIC - Eye Exam Eye Exam: EOMI, Normal appearance - ENT Exam ENT Exam: Mucous Membranes Moist - Neck Exam Neck exam: Positive for: Full Rom - Respiratory Exam Respiratory Exam: Clear to Auscultation Bilateral, NORMAL BREATHING PATTERN. absent: Accessory Muscle Use, Rales, Rhonchi, Wheezes, Respiratory Distress - Cardiovascular Exam Cardiovascular Exam: REGULAR RHYTHM, RRR, +S1, +S2. absent: Bradycardia, Tachy cardia - GI/Abdominal Exam GI & Abdominal Exam: soft, nontender to palpation, no guarding, no rebound tenderness - Extremities Exam Extremities exam: Positive for: full ROM, normal capillary refill, normal inspection, pedal pulses present. Negative for: calf tenderness, joint swelling, pedal edema, tenderness - Back Exam Back exam: absent: CVA tenderness (L), CVA tenderness (R) - Neurological Exam Neurological exam: Awake, Alert, Oriented x3 - Psychiatric Exam Psychiatric exam: Normal Affect, Normal Mood - Skin Skin Exam: Dry, Warm Assessment and Plan: Patient is a 42 year old female with a past medical history of hypertension, mi graines, empty sella syndrome, anemia who was admitted for evaluation and treatment of generalized weakness, SOB with exertion, abdominal pain, nausea, and vomiting. Heme/onc was consulted for management of anemia. Anemia - normocytic - Hgb 7.4 to 8.5 s/p 2 units pRBCs, will monitor closely via daily CBC - iron, TIBC, ferritin, Vitamin b12, Vitamin B9 ordered and pending - peripheral smear required- will be able to order if patient is made inpatient - FOBT ordered and pending Please make note this is a complex patient with multiple comorbid medical issues. We will continue to monitor the patient patient aggressively. Time spend with the patient is greater than 45 minutes. Patient case discussed with, and plan approved by attending physician, Dr. Gutierrez. Past Patient History - Infectious Disease Hx of Infectious Diseases: None - Past Social History Smoking Status: Current Some Days Smoker - CARDIAC Hx Cardiac Disorders: Yes Hx Hypertension: Yes - PULMONARY Hx Respiratory Disorders: Yes (SMOKES 2 CIGARETTES A DAY.) - NEUROLOGICAL Hx Neurological Disorder: Yes Other/Comment: empty sella syndrome - HEENT Hx HEENT Problems: No - RENAL Hx Chronic Kidney Disease: No - ENDOCRINE/METABOLIC Hx Endocrine Disorders: No - HEMATOLOGICAL/ONCOLOGICAL Hx Blood Disorders: Yes Hx Anemia: Yes (09-03-18 BLOOD TRANSFUSION) - INTEGUMENTARY Hx Dermatological Problems: No - MUSCULOSKELETAL/RHEUMATOLOGICAL Hx Musculoskeletal Disorders: No Hx Falls: No - GASTROINTESTINAL Hx Gastrointestinal Disorders: No - GENITOURINARY/GYNECOLOGICAL Hx Genitourinary Disorders: Yes (C SECTION X 1) - PSYCHIATRIC Hx Psychophysiologic Disorder: No Hx Substance Use: No - SURGICAL HISTORY Hx Surgeries: Yes (C SECTION X 1) - ANESTHESIA Hx Anesthesia: No Meds Allergies/Adverse Reactions: Allergies Allergy/AdvReac Type Severity Reaction Status Date / Time shrimp Allergy ANAPHYLAXIS Verified 09/03/18 17:49 - Medications Medications: Current Medications Acetaminophen (Tylenol 325mg Tab) 650 mg PO Q6H PRN PRN Reason: Headache Last Admin: 09/03/18 18:30 Dose: 650 mg Famotidine (Pepcid) 40 mg PO DAILY ORESTES Losartan Potassium (Cozaar) 100 mg PO DAILY ORESTES Results - Vital Signs Recent Vital Signs: Last Vital Signs Temp 98.4 F 09/04/18 06:00 Pulse 90 09/04/18 06:00 Resp 20 09/04/18 06:00 BP 132/72 09/04/18 06:00 Pulse Ox 98 09/04/18 06:00 - Labs Result Diagrams: 09/04/18 05:45 09/04/18 06:00 Labs: Laboratory Results - last 24 hr 09/03/18 09/03/18 09/03/18 11:19 12:02 12:02 WBC 9.7 RBC 2.44 L Hgb 7.4 L D Hct 21.7 L MCV 88.9 D MCH 30.3 MCHC 34.1 RDW 17.3 H Plt Count 120 MPV 9.4 Gran % 29.0 L Lymph % (Auto) 39.4 H [place] % (Auto) 31.4 H Eos % (Auto) 0.1 L Baso % (Auto) 0.1 Gran # 2.81 Lymph # (Auto) 3.8 H [place] # (Auto) 3.1 H Eos # (Auto) 0.0 Baso # (Auto) 0.01 Corrected WBC (Man) 9.1 Neutrophils % (Manual) 32 L Lymphocytes % (Manual) 43 H Monocytes % (Manual) 25 H Nucleated RBC % 7 Large Platelets Present Polychromasia Slight Hypochromasia Slight Poikilocytosis (manual Slight Anisocytosis (manual) Slight Microcytosis (manual) Slight D-Dimer, Quantitative Sodium 136 Potassium 4.6 Chloride 98 Carbon Dioxide 31 Anion Gap 12 BUN 13 Creatinine 0.9 Est GFR ( Amer) > 60 Est GFR (Non-Af Amer) > 60 POC Glucose (mg/dL) 258 H Random Glucose 248 H Calcium 9.5 Total Bilirubin 0.5 AST 26 ALT 21 Alkaline Phosphatase 101 Lactate Dehydrogenase 745 H Total Creatine Kinase 28 L Troponin I < 0.01 Total Protein 9.0 H Albumin 3.9 Globulin 5.1 Albumin/Globulin Ratio 0.8 L Amylase 65 Lipase 102 TSH 3rd Generation Urine Color Urine Appearance Urine pH Ur Specific [place] Urine Protein Urine Glucose (UA) Urine Ketones Urine Blood Urine Nitrate Urine Bilirubin Urine Urobilinogen Ur Leukocyte Esterase Urine RBC Urine WBC Ur Epithelial Cells Urine Bacteria Blood Type Blood Type Confirm Antibody Screen Crossmatch BBK History Checked 09/03/18 09/03/18 09/03/18 12:02 12:02 12:35 WBC RBC Hgb Hct MCV MCH MCHC RDW Plt Count MPV Gran % Lymph % (Auto) [place] % (Auto) Eos % (Auto) Baso % (Auto) Gran # Lymph # (Auto) [place] # (Auto) Eos # (Auto) Baso # (Auto) Corrected WBC (Man) Neutrophils % (Manual) Lymphocytes % (Manual) Monocytes % (Manual) Nucleated RBC % Large Platelets Polychromasia Hypochromasia Poikilocytosis (manual Anisocytosis (manual) Microcytosis (manual) D-Dimer, Quantitative 426 H Sodium Potassium Chloride Carbon Dioxide Anion Gap BUN Creatinine Est GFR ( Amer) Est GFR (Non-Af Amer) POC Glucose (mg/dL) Random Glucose Calcium Total Bilirubin AST ALT Alkaline Phosphatase Lactate Dehydrogenase Total Creatine Kinase Troponin I Total Protein Albumin Globulin Albumin/Globulin Ratio Amylase Lipase TSH 3rd Generation Urine Color Yellow Urine Appearance Cloudy Urine pH 6.0 Ur Specific [place] 1.025 Urine Protein 30 H Urine Glucose (UA) Negative Urine Ketones Trace H Urine Blood Negative Urine Nitrate Negative Urine Bilirubin Negative Urine Urobilinogen 0.2 Ur Leukocyte Esterase Negative Urine RBC Negative Urine WBC 1 - 3 Ur Epithelial Cells Many Urine Bacteria Many Blood Type O POSITIVE Blood Type Confirm Antibody Screen Negative Crossmatch See Detail BBK History Checked No verified bt 09/03/18 09/04/18 09/04/18 13:30 05:45 05:45 WBC 8.3 RBC 2.88 L Hgb 8.5 L Hct 25.2 L MCV 87.5 MCH 29.5 MCHC 33.7 RDW 16.8 H Plt Count 90 L MPV 9.2 Gran % Lymph % (Auto) [place] % (Auto) Eos % (Auto) Baso % (Auto) Gran # Lymph # (Auto) [place] # (Auto) Eos # (Auto) Baso # (Auto) Corrected WBC (Man) Neutrophils % (Manual) Lymphocytes % (Manual) Monocytes % (Manual) Nucleated RBC % Large Platelets Polychromasia Hypochromasia Poikilocytosis (manual Anisocytosis (manual) Microcytosis (manual) D-Dimer, Quantitative Sodium Potassium Chloride Carbon Dioxide Anion Gap BUN Creatinine Est GFR ( Amer) Est GFR (Non-Af Amer) POC Glucose (mg/dL) Random Glucose Calcium Total Bilirubin AST ALT Alkaline Phosphatase Lactate Dehydrogenase Total Creatine Kinase Troponin I Total Protein Albumin Globulin Albumin/Globulin Ratio Amylase Lipase TSH 3rd Generation 2.16 Urine Color Urine Appearance Urine pH Ur Specific [place] Urine Protein Urine Glucose (UA) Urine Ketones Urine Blood Urine Nitrate Urine Bilirubin Urine Urobilinogen Ur Leukocyte Esterase Urine RBC Urine WBC Ur Epithelial Cells Urine Bacteria Blood Type Blood Type Confirm O POSITIVE Antibody Screen Crossmatch BBK History Checked 09/04/18 06:00 WBC RBC Hgb Hct MCV MCH MCHC RDW Plt Count MPV Gran % Lymph % (Auto) [place] % (Auto) Eos % (Auto) Baso % (Auto) Gran # Lymph # (Auto) [place] # (Auto) Eos # (Auto) Baso # (Auto) Corrected WBC (Man) Neutrophils % (Manual) Lymphocytes % (Manual) Monocytes % (Manual) Nucleated RBC % Large Platelets Polychromasia Hypochromasia Poikilocytosis (manual Anisocytosis (manual) Microcytosis (manual) D-Dimer, Quantitative Sodium 135 Potassium 4.1 Chloride 102 Carbon Dioxide 27 Anion Gap 10 BUN 11 Creatinine 0.8 Est GFR ( Amer) > 60 Est GFR (Non-Af Amer) > 60 POC Glucose (mg/dL) Random Glucose 195 H Calcium 9.2 Total Bilirubin AST ALT Alkaline Phosphatase Lactate Dehydrogenase Total Creatine Kinase Troponin I Total Protein Albumin Globulin Albumin/Globulin Ratio Amylase Lipase TSH 3rd Generation Urine Color Urine Appearance Urine pH Ur Specific [place] Urine Protein Urine Glucose (UA) Urine Ketones Urine Blood Urine Nitrate Urine Bilirubin Urine Urobilinogen Ur Leukocyte Esterase Urine RBC Urine WBC Ur Epithelial Cells Urine Bacteria Blood Type Blood Type Confirm Antibody Screen Crossmatch BBK History Checked
--- NOTE | 2018-09-04 16:54 | CON ---
DATE OF CONSULTATION: 09/04/2018 NEUROLOGY CONSULTATION CHIEF COMPLAINT: Headache. HISTORY OF PRESENT ILLNESS: This is a 42-year-old woman with past medical history of hypertension, migraine headaches, on candesartan and doxepin, empty sella syndrome, and anemia, who was admitted for generalized weakness, shortness of breath with exertion, abdominal pain, nausea, vomiting, and found to have a low hemoglobin of 7.4 status post transfusion of PRBCs, and her generalized weakness had improved back to baseline. Her headaches are slightly much better. She has diffuse pressure headache and history of migraines with some auras, for which she sees Dr. Pratik Morrissey, who is a neurologist, for headaches, and is on candesartan 16 mg p.o. daily, which has helped her headache significantly. She takes triptans with acute onset of headache when necessary. She is on metoclopramide. She has poor sleep hygiene as well. No focal weakness of the extremities. Doing much better now. PAST MEDICAL HISTORY: History of hypertension, migraines, empty sella syndrome, and anemia. PAST SURGICAL HISTORY: History of 20 years ago. FAMILY HISTORY: Noncontributory. SOCIAL HISTORY: No illicit drug use, smoking, or EtOH abuse at this time; used to smoke cigarettes 1 pack per day 15 years ago. Denies any illicit drug use. ALLERGIES: NO KNOWN DRUG ALLERGIES. MEDICATIONS: Reviewed by nurses' reconciliation sheet. REVIEW OF SYSTEMS: A 14-point review of systems is negative except as per the HPI. PHYSICAL EXAMINATION: VITAL SIGNS: Temperature 98.4, pulse rate of 90, blood pressure 122/72, respiratory rate 20, and oxygen saturation 98% on room air. GENERAL: The patient is sitting up in bed, in no acute distress. HEENT: Head is atraumatic, normocephalic. PERRLA. Extraocular muscles intact. NECK: Supple. No JVD. No adenopathy noted. LUNGS: Clear to auscultation. No adventitious sounds. HEART: S1 and S2. Normal rate and rhythm. No murmurs, rubs or gallops. ABDOMEN: Soft, nontender, and nondistended. Bowel sounds are present. EXTREMITIES: No clubbing. No cyanosis. Peripheral pulses 2+ felt bilaterally. NEUROLOGIC: The patient is alert and oriented to person, place, month and year. Speech is fluent without any errors. Cranial nerves II through XII intact. Motor Exam: Moves all extremities equally. Toes are downgoing bilaterally. Sensory Exam: Light touch, pinprick, proprioception, and vibration are intact. DTRs are 2+ throughout. Coordination: [id number] intact. No dysmetria noted. Gait is deferred for now. CURRENT LABORATORY DATA: Sodium is 135, potassium 4.1, chloride 102, carbon dioxide 27, BUN of 11, creatinine 0.8, and random glucose 195. IMPRESSION AND RECOMMENDATIONS: Her headaches are more of a chronic episodic migraines with aura, and sees her neurologist, Dr. Pratik Morrissey. At this time: 1. Continue with her candesartan 16 mg p.o. daily for headache prevention. 2. Sleep hygiene advice. 3. Can follow with her neurologist as an outpatient. 4. Her anemia is likely the cause for generalized weakness and is status post transfusion. Follow up with primary care team. Candelario Ferrera MD
--- NOTE | 2018-09-04 21:00 | CON ---
DATE: 09/04/2018 PULMONARY CONSULTATION REFERRING PHYSICIAN: Mary Pollard MD REASON FOR CONSULTATION: Chronic lung disease, cough, shortness of breath. HISTORY OF PRESENT ILLNESS: This is a 42-year-old female with a history of hypertension, history of empty sella syndrome, who came into emergency room with shortness of breath, cough, feeling weak and tired, found to be severely anemic, admits to have heavy periods, using four to five pads a day, does not take any supplemental iron or vitamins, admits to have loud snoring. Day time sleepy and tired. No chest pain. No dysuria. No leg pain or leg swelling. PAST MEDICAL HISTORY: Hypertension, history of empty sella syndrome with heavy menstrual periods. ALLERGIES: ALLERGY TO SHRIMPS. SOCIAL HISTORY: Positive for smoking. Denied any alcohol use. FAMILY HISTORY: No significant cardiopulmonary disease reported. MEDICATIONS: Cozaar 100 mg daily, Pepcid 40 mg daily, Tylenol p.r.n. basis. REVIEW OF SYSTEMS: On and off headache. No rhinitis. Has a dry cough. Short of breath with minimal exertion. Admits to have snoring, day time sleepy and tired. Does have some symptoms of GERD. No dysuria or leg pain or leg swelling. Has a history of heavy periods. PHYSICAL EXAMINATION: GENERAL: No acute distress. VITAL SIGNS: Temperature is 98, heart rate is 98, respiratory rate is 20, blood pressure 104/66, pulse ox 98% on room air. HEENT: Moist mucous membrane. Crowded airway. Mallampati score is 4. NECK: Supple. No JVD. LUNGS: Have a few scattered rhonchi. HEART: S1 and S2. ABDOMEN: Soft, nontender, no organomegaly. EXTREMITIES: No edema. NEUROLOGIC: Awake, alert, and follows simple commands. LABORATORY DATA: Shows hemoglobin 7.4, hematocrit is 21.7, WBC 9.7, and platelet is 120. D-dimer was 426 on admission. Sodium 135, potassium 4.1, chloride 102, bicarbonate 27, BUN 11, creatinine 0.8, glucose 195, calcium 9.2, ferritin 279, AST 26, ALT 21, alkaline phosphatase is 101. LDH is 475. Troponin less than 0.01. Albumin is 3.9. TSH 2.16. Urinalysis shows rbc negative, wbc 1 to 3, ketones trace, and protein 30. CT of the chest was done on admission, shows no pulmonary embolus. IMPRESSION AND PLAN: Severe anemia, probably secondary to heavy periods, has high LDH? Need to rule out hemolysis. History of diabetes, hypertension, chronic lung disease, may have sleep apnea syndrome. I agree with the present management. Continue SCDs to lower extremity and gastric prophylaxis, inhaled bronchodilator. Anemia workup including B12 and folate. Outpatient PFT and attend a sleep study. [employer] workup. Follow up labs in the morning. Thank you, and we will follow with you. John Morales MD
[2018-09-04] MEDS: Doxepin HCL 10 mg/mL ORAL SOLUTION PO SCH (22:08)
--- NOTE | 2018-09-04 22:45 | PN ---
DATE: 09/04/2018 SUBJECTIVE: The patient is a 42-year-old female. The patient was seen and examined on the bedside, 09/04/2018. Looking comfortable. Much better than the day of admission. No fever. No chills. No hematuria. No hematochezia. No swelling of the legs. No chest pain. No palpitation. Shortness of breath is better. PHYSICAL EXAMINATION: VITAL SIGNS: Temperature 98.3, pulse 89, respiratory rate 19, and blood pressure 140/66. HEENT: Head; normocephalic and atraumatic. Eyes; PERRLA. Extraocular muscles intact. Conjunctivae clear. Nose patent. Mucous membranes moist. NECK: Supple. No carotid bruit. No thyromegaly. HEART: S1 and S2 positive. LUNGS: Clear to auscultation. ABDOMEN: Soft. Bowel sounds present. No organomegaly. EXTREMITIES: No edema. No cyanosis. NEUROLOGIC: The patient is awake and alert. Moving all four extremities. No focal deficits. MEDICATIONS: Brovana, Cozaar, Pepcid, Pulmicort, and Tylenol. LABORATORY DATA: White blood cells 6.3, hemoglobin 8.5 after two units of packed RBCs transfusion on admission , hematocrit 25.2, and platelets 90. Sodium 139, potassium 4.1, BUN 11, creatinine 0.8, glucose 195, and calcium 9.2. ASSESSMENT AND PLAN: Ms. Ignacia Costa is a 42-year-old lady with anemia, status post 2 units of packed red blood cell, improved; hyperglycemia, ketonuria, proteinuria; came with symptomatic anemia, improved after blood transfusion; history of hypertension, migraine, empty sella syndrome, section 20 years ago, history of ethanol abuse, tobacco abuse, denies illicit drug use, anemia looks like monocytic, fecal occult blood test ordered, results are pending, has multiple comorbidities, seen by Dr. Riggs, seen by Dr. Candelario Ferrera, and history of sleep disturbance. According to the neurologist, her headache are more of chronic episodes migraine with aura. The patient has neurologist as an outpatient with Dr. Pratik Morrissey. Continue candesartan daily, sleep hygiene advised, history of abnormal menstruation and discussion done with the patient, out of bed, repeat labs and physical therapy. We will follow up. Mary Pollard MD [facility] # [id number] [facility]
[2018-09-05 06:21] LABS: ALB/GLOB RATIO 0.7 (1.1-1.8); ALBUMIN 3.3 g/dL (3.0-4.8); ALT/SGPT 19 U/L (7-56); AST/SGOT 22 U/L (14-36); BLOOD UREA NITROGEN 12 mg/dL (7-21); CALCIUM 8.8 mg/dL (8.4-10.5); GFR NON-AFRICAN AMERICAN > 60
[2018-09-05 06:53] LABS: RBC 2.88 10^6/uL (3.5-6.1); WHITE BLOOD COUNT 6.4 10^3/uL (4.5-11.0)
[2018-09-05 06:54] LABS: HEMOGLOBIN 8.6 g/dL (12.0-16.0); MEAN CORPUSCULAR HEMOGLOBIN 29.9 pg (25.0-35.0)
[2018-09-05 06:55] LABS: MEAN CORPUSCULAR HGB CONC 32.8 g/dl (31.0-37.0); MEAN PLATELET VOLUME 9.7 fl (7.0-11.0); RED CELL DISTRIBUTION WIDTH 16.9 % (11.5-14.5)
[2018-09-05] MEDS: Budesonide 0.5 mg/2 ml Inhal Susp UD IH SCH ×2 (09:25→19:21)
[2018-09-05] MEDS: Arformoterol 15 mcg/2 ml Inh Sol IH SCH ×2 (09:26→19:21)
--- NOTE | 2018-09-05 12:50 | CP.PCM.CON ---
<Bhavik Richard - Last Filed: 09/05/18 15:27> History of Present Illness - History of Present Illness History of Present Illness: PGY-4 GI Fellow Consult Note Pt is a 42 yo BF with HTN, migraines, empty sella syndrome, anemia who was admitted a few days ago for symptomatic anemia. She was experiencing shortness of breath, dizziness and generalized weakness. Outpatient labs were check and revealed a Hgb of 7.4 from recent values of 12 in July 2018. She also reported some vague diffuse abd pain that also resolved with the aforementioned symptoms post-PRBC transfusion. Upon further questioning, she states that she has always had some menorrhagia, but states that has been stable and had never had this low of Hgb from it. She states that her BMs have been darker than normal as well as some weight loss of 10-20 lbs over the last several months, but she wondered if it had been related to a medication for her empty sella that may in turn affect her appetite. However, she states that she began losing weight unintentionally prior to medication changes. She denied any dysphagia, odynophagia, hematochezia nor any prior endoscopic evaluation. 12 point ROS negative other than stated above MHx: Hypertension, migraines, empty sella syndrome, anemia SurgHx: c section ~20 years ago Meds: As per MAR FamHx: Father- CAD; someone with unknown CA SocHx: social ETOH use, tobacco use 1ppd for 15+ year ago; Denies illicit drug use Allergies: NKDA Past Patient History - Infectious Disease Hx of Infectious Diseases: None - Past Social History Smoking Status: Current Some Days Smoker - CARDIAC Hx Cardiac Disorders: Yes Hx Hypertension: Yes - PULMONARY Hx Respiratory Disorders: Yes (SMOKES 2 CIGARETTES A DAY.) - NEUROLOGICAL Hx Neurological Disorder: Yes Other/Comment: empty sella syndrome - HEENT Hx HEENT Problems: No - RENAL Hx Chronic Kidney Disease: No - ENDOCRINE/METABOLIC Hx Endocrine Disorders: No - HEMATOLOGICAL/ONCOLOGICAL Hx Blood Disorders: Yes Hx Anemia: Yes (09-03-18 BLOOD TRANSFUSION) - INTEGUMENTARY Hx Dermatological Problems: No - MUSCULOSKELETAL/RHEUMATOLOGICAL Hx Musculoskeletal Disorders: No Hx Falls: No - GASTROINTESTINAL Hx Gastrointestinal Disorders: No - GENITOURINARY/GYNECOLOGICAL Hx Genitourinary Disorders: Yes (C SECTION X 1) - PSYCHIATRIC Hx Psychophysiologic Disorder: No Hx Substance Use: No - SURGICAL HISTORY Hx Surgeries: Yes (C SECTION X 1) - ANESTHESIA Hx Anesthesia: No Meds Allergies/Adverse Reactions: Allergies Allergy/AdvReac Type Severity Reaction Status Date / Time shrimp Allergy ANAPHYLAXIS Verified 09/03/18 17:49 - Medications Medications: Current Medications Acetaminophen (Tylenol 325mg Tab) 650 mg PO Q6H PRN PRN Reason: Headache Last Admin: 09/03/18 18:30 Dose: 650 mg Arformoterol Tartrate (Brovana) 15 mcg IH [id number] [facility] Last Admin: 09/05/18 09:26 Dose: 15 mcg Budesonide (Pulmicort Respules) 0.5 mg IH [id number] [facility] Last Admin: 09/05/18 09:25 Dose: 0.5 mg Famotidine (Pepcid) 40 mg PO DAILY [facility] Last Admin: 09/05/18 09:29 Dose: 40 mg Losartan Potassium (Cozaar) 100 mg PO DAILY [facility] Last Admin: 09/05/18 09:29 Dose: 100 mg Physical Exam - Constitutional Appears: Well, No Acute Distress - Head Exam Head Exam: ATRAUMATIC, NORMAL INSPECTION - Eye Exam Eye Exam: EOMI. absent: Conjunctival injection, Scleral icterus - ENT Exam ENT Exam: Mucous Membranes Moist. absent: Mucous Membranes Dry - Respiratory Exam Respiratory Exam: Clear to Auscultation Bilateral, NORMAL BREATHING PATTERN. absent: Accessory Muscle Use - Cardiovascular Exam Cardiovascular Exam: REGULAR RHYTHM, RRR - GI/Abdominal Exam GI & Abdominal Exam: Normal Bowel Sounds, Soft. absent: Bruit, Diminished Bowel Sounds, Distended, Firm, Guarding, Hernia, Organomegaly, Pulsatile Mass, Rebound, Rigid, Tenderness - Rectal Exam Rectal Exam: NORMAL INSPECTION Additional comments: soft mass on HEATHER unclear if stool or not but no stool was seen on HEATHER - Neurological Exam Neurological exam: Alert, CN II-XII Intact - Psychiatric Exam Psychiatric exam: Normal Affect, Normal Mood - Skin Skin Exam: Normal Color, Warm Results - Vital Signs Recent Vital Signs: Last Vital Signs Temp 98.1 F 09/05/18 08:32 Pulse 104 H 09/05/18 10:00 Resp 20 09/05/18 08:32 BP 108/71 09/05/18 08:32 Pulse Ox 97 09/05/18 08:32 - Labs Result Diagrams: 09/05/18 05:15 09/05/18 05:15 Labs: Laboratory Results - last 24 hr 09/04/18 09/05/18 09/05/18 06:00 05:15 05:15 WBC 6.4 D RBC 2.88 L Hgb 8.6 L Hct 26.2 L MCV 91.0 D MCH 29.9 MCHC 32.8 RDW 16.9 H Plt Count 91 L MPV 9.7 Sodium 136 Potassium 4.2 Chloride 100 Carbon Dioxide 29 Anion Gap 10 BUN 12 Creatinine 0.9 Est GFR ( Amer) > 60 Est GFR (Non-Af Amer) > 60 Random Glucose 164 H Calcium 8.8 Ferritin 279.0 Total Bilirubin 0.5 AST 22 ALT 19 Alkaline Phosphatase 94 Total Protein 8.0 Albumin 3.3 Globulin 4.7 Albumin/Globulin Ratio 0.7 L Assessment & Plan - Assessment and Plan (Free Text) Assessment: 42 yo BF with h/o Empty Sella, Migraines, HTN, Anemia attributed to menorrhagia presenting with worsening symptomatic anemia. # Acute on Chronic Normocytic Anemia: Symptomatic but improved post 2 units from 7.4 to 8.5 but inadequate response. Menorrhaggia has been stable per patient and never been this low of Hgb before. No overt GI bleed but pt reports that stool seems darker than usual. Furthermore, pt reports possible unintentional weight loss raising further concerns for underlying malignancy. Lastly, possible mass was palpated on HEATHER. Plan: - CT Abd+Pelvis with PO+IV Contrast --- CT Angio on admission negative - Plan for EGD+CSPY on 09/07/18 - CLD on 09/06 - NPO at [place] tomorrow night - Prep for CSPY in PM of 09/06 - PPI daily - Heme following, appreciate recs/workup Pt seen and examined with Dr. Ramon; please see attestation for further recs/changes Bhavik Richard, PGY-4 <Carlos Manuel Ramon V - Last Filed: 09/05/18 16:59> Meds - Medications Medications: Current Medications Acetaminophen (Tylenol 325mg Tab) 650 mg PO Q6H PRN PRN Reason: Headache Last Admin: 09/03/18 18:30 Dose: 650 mg Arformoterol Tartrate (Brovana) 15 mcg IH [id number] [facility] Last Admin: 09/05/18 09:26 Dose: 15 mcg Budesonide (Pulmicort Respules) 0.5 mg IH [id number] [facility] Last Admin: 09/05/18 09:25 Dose: 0.5 mg Losartan Potassium (Cozaar) 100 mg PO DAILY [facility] Last Admin: 09/05/18 09:29 Dose: 100 mg Pantoprazole Sodium (Protonix Ec Tab) 40 mg PO 0600 [facility] Results - Vital Signs Recent Vital Signs: Last Vital Signs Temp 98.7 F 09/05/18 16:53 Pulse 104 H 09/05/18 16:53 Resp 22 09/05/18 16:53 BP 109/67 09/05/18 16:53 Pulse Ox 99 09/05/18 16:53 - Labs Result Diagrams: 09/05/18 05:15 09/05/18 05:15 Labs: Laboratory Results - last 24 hr 09/05/18 09/05/18 05:15 05:15 WBC 6.4 D RBC 2.88 L Hgb 8.6 L Hct 26.2 L MCV 91.0 D MCH 29.9 MCHC 32.8 RDW 16.9 H Plt Count 91 L MPV 9.7 Sodium 136 Potassium 4.2 Chloride 100 Carbon Dioxide 29 Anion Gap 10 BUN 12 Creatinine 0.9 Est GFR ( Amer) > 60 Est GFR (Non-Af Amer) > 60 Random Glucose 164 H Calcium 8.8 Total Bilirubin 0.5 AST 22 ALT 19 Alkaline Phosphatase 94 Total Protein 8.0 Albumin 3.3 Globulin 4.7 Albumin/Globulin Ratio 0.7 L Attending/Attestation - Attestation I have personally seen and examined this patient.: Yes I have fully participated in the care of the patient.: Yes I have reviewed all pertinent clinical information: Yes Notes (Text): This is an addendum to GI consult report dictated by the GI Fellow. The patient was seen and examined earlier. Medical records, lab studies, imagings were reviewed. Last 24 hours events reviewed. Agreed with the above treatment plan as outlined in GI Fellow 's notes with the addition of the following Patient gave history of questionable dark stool and unintentional weight loss of 10-20lb in the last few months. Rectal examination was done by the Fellow, who reports questionable lesion at the tip of the finger. S/p transfusion. Normocytic anemia. Would recommend reticulocyte count and hemolytic workup. Follow-up transfer saturation. Chest CT reviewed. Would recommend CT of abdomen and pelvis with PO and IV contrast to further evaluate today. Continue PPI. Follow-up hemoglobin Planned for EGD and colonoscopy on Friday. Clear liquid diet will be started tomorrow. 09/05/18 16:54
[2018-09-05] MEDS ORDERED: Iohexol 240 (50 ml) ONE (16:07)
[2018-09-05] MEDS ORDERED: Iohexol 350 MG/100 ML VIAL ONE (18:53)
--- NOTE | 2018-09-05 21:05 | PN ---
DATE: 09/05/2018 SUBJECTIVE: The patient is a 42-year-old female. The patient was seen and examined at bedside on 09/05/2018. Looking comfortable. No nausea, vomiting, or diarrhea. No hematuria. No hematochezia. No swelling of the legs. No chest pain. No palpitation. No head ache or dizziness. No fever. No chills. PHYSICAL EXAMINATION: VITAL SIGNS: Temperature 98.1, pulse 104, respiratory rate 20, blood pressure 108/71, and pulse oximetry 97. HEENT: Head, normocephalic and atraumatic. Eyes, PERRLA, extraocular muscles intact, conjunctivae clear. Nose patent. Mucous membrane moist. NECK: Supple. No carotid bruit. No JVD. No thyromegaly. CHEST: Bilaterally symmetrical. HEART: S1 and S2 positive. LUNGS: Clear to auscultation. ABDOMEN: Soft. Bowel sounds present. No organomegaly. EXTREMITIES: No edema. No cyanosis. NEUROLOGIC: The patient is awake and alert, moving all four extremities. No focal deficits. LABORATORY DATA: White blood cells 6.4, hemoglobin 8.6, hematocrit 26.2, and platelets 91. Sodium 136, potassium 4.2, BUN 12, creatinine 0.9, and glucose 164. ASSESSMENT AND PLAN: Ms. Ignacia Costa is a 42-year-old lady with severe anemia, got two packs of red blood cells, but responded not equal to thrombocytopenia, hyperglycemia, history of hypertension and migraine, empty sella syndrome, came with severe shortness of breath, blurring of vision, dizziness, generalized weakness, hemoglobin of 7.4. According to the patient, she has vague diffuse abdominal pain once in a while that resolved with the afore-mentioned symptoms post packed red blood cell transfusion. She has history of menorrhagia. mences are stable from couple of years. According to her, her hemoglobin was never so low, and she has history of dark stool, unexplained weight loss. Gastrointestinal consult called. Reviewed their notes. Looking for some malignancy. So, the patient had symptomatic anemia, improved. No overt gastrointestinal bleeding. Lastly, possible mass was palpated on digital rectal examination. Gastrointestinal planning for cecum, abdomen, and pelvis due on IV contrast. CT angiogram on admission was negative. Plan for esophagogastroduodenoscopy. Plan for CSPY on 09/07/2018. N.p.o. after midnight tomorrow. Preparation for CSPY. Proton pump inhibitor daily. Monitoring hemoglobin and hematocrit. Review Dr. Morales's and Dr. Ferrera's notes also. Meanwhile, continue present treatment with laboratories despite hemoglobin and hematocrit. We will follow. Mary Pollard MD [facility]
[2018-09-05] MEDS: Doxepin HCL 10 mg/mL ORAL SOLUTION PO SCH (21:23)
--- NOTE | 2018-09-05 22:22 | PN ---
DATE: 09/05/2018 PULMONARY PROGRESS NOTE REFERRING PHYSICIAN: Mary Pollard MD SUBJECTIVE: She is lying in the bed, head at 45 degrees, receiving IV iron. No headache. No rhinitis. Cough is better. No nausea, vomiting, diarrhea, leg pain, or leg swelling. OBJECTIVE: GENERAL: In no acute distress. VITAL SIGNS: Temperature is 98, heart rate is 106, respiratory rate is 22, blood pressure 109/67, pulse ox 99% on room air. HEENT: Moist mucous membrane. Crowded airway. Mallampati score is 4. NECK: Supple. No JVD. LUNGS: Have a fair airflow with rhonchi. HEART: S1 and S2. ABDOMEN: Soft, nontender. No organomegaly. EXTREMITIES: No edema. NEUROLOGICAL: Awake, alert. Follows simple commands. MEDICATIONS: She is on Brovana inhaled twice a day, Cozaar 100 mg daily, Protonix 40 mg daily, Pulmicort inhaled twice a day, Tylenol p.r.n. basis. LABORATORY DATA: Shows hemoglobin 8.6, hematocrit 26.2, WBC 6.4, platelet count is 91. Sodium 136, potassium 4.2, chloride 100, bicarbonate 29, BUN 12, creatinine 0.9, glucose 164, ferritin 279. AST 22, ALT 19, alk phos is 94. Albumin is 3.2. TSH 2.16. IMPRESSION AND PLAN: Severe anemia, receiving iron; history of diabetes; hypertension; chronic lung disease; may have sleep apnea syndrome, clinically improved. Cough is a little better. Is having CT of the abdomen and pelvis. Gastric prophylaxis. Sequential compression device to lower extremity. Follow up labs in the morning. Thank you and we will follow with you. John Morales MD
[2018-09-06 05:49] LABS: HEMOGLOBIN 8.2 g/dL (12.0-16.0); MEAN CELL VOLUME 88.1 fl (80.0-105.0); MEAN CORPUSCULAR HEMOGLOBIN 29.6 pg (25.0-35.0); MEAN CORPUSCULAR HGB CONC 33.6 g/dl (31.0-37.0); MEAN PLATELET VOLUME 9.5 fl (7.0-11.0); RBC 2.77 10^6/uL (3.5-6.1); RED CELL DISTRIBUTION WIDTH 16.2 % (11.5-14.5); WHITE BLOOD COUNT 5.3 10^3/uL (4.5-11.0)
[2018-09-06] MEDS ORDERED: Pantoprazole 40 mg EC Tab PO SCH (06:00)
[2018-09-06 06:01] LABS: BLOOD UREA NITROGEN 11 mg/dL (7-21); CALCIUM 8.6 mg/dL (8.4-10.5); GFR NON-AFRICAN AMERICAN > 60
[2018-09-06] MEDS: Arformoterol 15 mcg/2 ml Inh Sol IH SCH ×2 (08:10→19:27)
[2018-09-06] MEDS: Budesonide 0.5 mg/2 ml Inhal Susp UD IH SCH ×2 (08:11→19:27)
--- NOTE | 2018-09-06 11:55 | CP.PCM.PN ---
<Bhavik Richard - Last Filed: 09/06/18 12:01> Subjective - Date & Time of Evaluation Date of Evaluation: 09/06/18 Time of Evaluation: 08:50 - Subjective Subjective: PGY-4 GI Fellow Prog Note Pt lying in bed when seen this AM. States she is doing well without any complaints. No BM since last examined. 5 point ROS negative other than stated above Objective - Vital Signs/Intake and Output Vital Signs (last 24 hours): Temp Pulse Resp BP Pulse Ox 97.9 F 89 18 117/75 97 09/06/18 08:00 09/06/18 08:00 09/06/18 08:00 09/06/18 08:00 09/06/18 08:00 - Medications Medications: Current Medications Acetaminophen (Tylenol 325mg Tab) 650 mg PO Q6H PRN PRN Reason: Headache Last Admin: 09/03/18 18:30 Dose: 650 mg Arformoterol Tartrate (Brovana) 15 mcg IH [id number] [facility] Last Admin: 09/06/18 08:10 Dose: 15 mcg Bisacodyl (Dulcolax) 10 mg PO ONCE ONE Stop: 09/06/18 18:01 Budesonide (Pulmicort Respules) 0.5 mg IH [id number] [facility] Last Admin: 09/06/18 08:11 Dose: 0.5 mg Losartan Potassium (Cozaar) 100 mg PO DAILY [facility] Last Admin: 09/06/18 09:37 Dose: 100 mg Polyethylene Glycol/Electrolytes (Golytely) 4,000 ml PO ONCE ONE Stop: 09/06/18 16:01 - Labs Labs: 09/06/18 05:30 09/06/18 05:30 - Constitutional Appears: Well, No Acute Distress - Head Exam Head Exam: ATRAUMATIC, NORMAL INSPECTION - Eye Exam Eye Exam: EOMI. absent: Scleral icterus - ENT Exam ENT Exam: Mucous Membranes Moist. absent: Mucous Membranes Dry - GI/Abdominal Exam GI & Abdominal Exam: Soft, Normal Bowel Sounds. absent: Bruit, Distended, Firm, Guarding, Rigid, Tenderness, Mass, Organomegaly, Pulsatile Mass, Rebound Assessment and Plan - Assessment and Plan (Free Text) Assessment: 42 yo BF with h/o Empty Sella, Migraines, HTN, Anemia attributed to menorrhagia presenting with worsening symptomatic anemia. # Acute on Chronic Normocytic Anemia: Symptomatic but improved post 2 units from 7.4 to 8.5 but inadequate response. Menorrhaggia has been stable per patient and never been this low of Hgb before. No overt GI bleed but pt reports that stool seems darker than usual. Furthermore, pt reports possible unintentional weight loss raising further concerns for underlying malignancy. Lastly, possible mass was palpated on HEATHER. Ferritin and Fe studies ordered after PRBCs were transfused; therefore not accurate. # Thrombocytopenia: Unclear etiology but has been downtrending. Only recently started on PPI; therefore, unlikely the cause, but will hold anyways. Hematology following. Plan: - CT Abd+Pelvis with PO+IV Contrast w/o clear cause, though no contrast within rectum limiting study - Plan for EGD+CSPY on 09/07/18 - Discussed risks, benefits, alternatives and pt agrees to proceed --- Consent signed and in chart - CLD today - NPO at [place] tonight - Prep for CSPY in PM of 09/06 - PPI on hold due to thrombocytopenia - Check Retic, manual Plt count - Monitor CBC daily, check INR in AM - Heme following, appreciate recs/workup Pt discussed with Dr. Ramon; please see attestation for further recs/changes Bhavik Richard, PGY-4 <Carlos Manuel Ramon V - Last Filed: 09/06/18 14:55> Objective - Vital Signs/Intake and Output Vital Signs (last 24 hours): Temp Pulse Resp BP Pulse Ox 97.9 F 104 H 18 117/75 97 09/06/18 08:00 09/06/18 10:00 09/06/18 08:00 09/06/18 08:00 09/06/18 08:00 - Medications Medications: Current Medications Acetaminophen (Tylenol 325mg Tab) 650 mg PO Q6H PRN PRN Reason: Headache Last Admin: 09/03/18 18:30 Dose: 650 mg Arformoterol Tartrate (Brovana) 15 mcg IH [id number] [facility] Last Admin: 09/06/18 08:10 Dose: 15 mcg Bisacodyl (Dulcolax) 10 mg PO ONCE ONE Stop: 09/06/18 18:01 Budesonide (Pulmicort Respules) 0.5 mg IH [id number] [facility] Last Admin: 09/06/18 08:11 Dose: 0.5 mg Losartan Potassium (Cozaar) 100 mg PO DAILY [facility] Last Admin: 09/06/18 09:37 Dose: 100 mg Polyethylene Glycol/Electrolytes (Golytely) 4,000 ml PO ONCE ONE Stop: 09/06/18 16:01 - Labs Labs: 09/06/18 05:30 09/06/18 05:30 Attending/Attestation - Attestation I have personally seen and examined this patient.: Yes I have fully participated in the care of the patient.: Yes I have reviewed all pertinent clinical information, including history, physical exam and plan: Yes Notes (Text): This is an addendum to GI followup report dictated by the GI Fellow. The pat ient was seen and evaluated earlier. Medical records, lab studies, imagings were reviewed. Last 24 hours events reviewed. Agreed with the above treatment plan as outlined in GI Fellow's notes with the addition of the following CT scan was reviewed and there was no contrast in the rectum. Hepatomegaly appreciated, adnexal cyst, hyperdense lesion in the kidney. Hemoglobin 8.2. Platelet count shows downward trend at 82 today. Manual count done and found platelet count at 104. Serum Ferritin was normal, but it was done after transfusion. Scheduled for EGD and colonoscopy tomorrow. Would need hematological followup in view normocytic anemia and thrombocytopenia. PPI discontinued. 09/06/18 14:51
--- NOTE | 2018-09-06 13:32 | CT ---
Date of service: 09/05/2018 PROCEDURE: CT Abdomen and Pelvis. HISTORY: Abdominal pain, anemia, possible rectal mass COMPARISON: Comparison made with prior CTA chest 09/03/2018 which image the upper abdomen. TECHNIQUE: Contiguous axial images of the abdomen and pelvis performed following oral and intravenous injection of approximately 100 cc Omnipaque 350 contrast material.. Coronal and Sagittal reformats generated. Radiation dose: Total exam DLP = 1224.33 mGy-cm. This CT exam was performed using one or more of the following dose reduction techniques: Automated exposure control, adjustment of the mA and/or kV according to patient size, and/or use of iterative reconstruction technique. FINDINGS: LOWER THORAX: Lung bases clear. No infiltrate effusion or basilar pneumothorax. Heart size within range of normal. No significant pericardial effusion. Small hiatal hernia. LIVER: Liver is enlarged measuring nearly 22 cm in CC dimension. Moderate fatty hepatic infiltration. No obvious hepatic mass collection or calcification. Portal and splenic veins opacified. GALLBLADDER AND BILE DUCTS: Unremarkable. PANCREAS: Unremarkable. No mass. No ductal dilatation. SPLEEN: Unremarkable. No splenomegaly. ADRENALS: No adrenal lesions. KIDNEYS AND URETERS: Kidneys demonstrate symmetric nephrograms. No evidence of nephrolithiasis or hydronephrosis. There is a small approximately 8.7 mm partially exophytic low-attenuation focus anterior cortex lower pole left kidney that probably represents a hyperdense cyst. Follow-up ultrasound could confirm. BLADDER: Urinary bladder is collapsed and therefore cannot be adequately evaluated.. REPRODUCTIVE: The uterus unremarkable. There are bilateral adnexal cysts left-sided which measures approximately 2.1 cm and right-sided measures approximately 1.4 cm. APPENDIX: Normal-appearing appendix. BOWEL: Evaluation of the bowel is slightly limited due to incomplete opacification. The Stomach is distended with oral contrast material admixed with food debris liquid and air. Visualized loops of small bowel exhibit normal contour and caliber. No evidence of acute mechanical small bowel obstruction with oral contrast material seen extending into the colon to the level of the distal descending colon. Stool and air seen throughout the cecum, ascending and proximal 1/2 of the transverse colon. The remainder of the of the transverse colon is air-filled with collapse of the descending and sigmoid colon. Small amount of stool present within the rectum and distal sigmoid. The rectum is unopacified which limits evaluation. No definitive large rectal wall thickening seen on this exam however follow-up colonoscopy recommended given the patient's history of possible rectal mass. PERITONEUM: Unremarkable. No fluid collection. No free air. Tiny fat containing umbilical hernia. LYMPH NODES: Unremarkable. No enlarged lymph nodes. VASCULATURE: Unremarkable. No aortic aneurysm. Minor aortic atherosclerotic calcification or mural plaque present. BONES: Mild multilevel degenerative spondylosis of the lower thoracic and lumbar spine. No acute compression fractures no retropulsed fragments. OTHER FINDINGS: None. IMPRESSION: Hepatomegaly with fatty infiltration. Bilateral adnexal cyst left larger than right. No definitive large rectal mass seen however follow-up colonoscopy recommended if not already performed Probable hyperdense cyst lower pole left kidney. Ultrasound follow-up could be performed to confirm and exclude any solid lesion. The
[2018-09-06] MEDS ORDERED: Peg-Electrolyte Oral Soln 4L (Golytely) PO ONE (16:00)
--- NOTE | 2018-09-06 17:14 | CP.PCM.PN ---
Subjective - Date & Time of Evaluation Date of Evaluation: 09/05/18 Time of Evaluation: 20:00 - Subjective Subjective: No active complaints ROS: 12 ROS negative Objective - Vital Signs/Intake and Output Vital Signs (last 24 hours): Temp Pulse Resp BP Pulse Ox 97.9 F 104 H 18 117/75 97 09/06/18 08:00 09/06/18 10:00 09/06/18 08:00 09/06/18 08:00 09/06/18 08:00 - Medications Medications: Current Medications Acetaminophen (Tylenol 325mg Tab) 650 mg PO Q6H PRN PRN Reason: Headache Last Admin: 09/03/18 18:30 Dose: 650 mg Arformoterol Tartrate (Brovana) 15 mcg IH [id number] [facility] Last Admin: 09/06/18 08:10 Dose: 15 mcg Bisacodyl (Dulcolax) 10 mg PO ONCE ONE Stop: 09/06/18 18:01 Budesonide (Pulmicort Respules) 0.5 mg IH [id number] [facility] Last Admin: 09/06/18 08:11 Dose: 0.5 mg Losartan Potassium (Cozaar) 100 mg PO DAILY [facility] Last Admin: 09/06/18 09:37 Dose: 100 mg - Labs Labs: 09/06/18 05:30 09/06/18 05:30 - Constitutional Appears: Well - Respiratory Exam Respiratory Exam: Clear to Ausculation Bilateral, NORMAL BREATHING PATTERN - Cardiovascular Exam Cardiovascular Exam: Bradycardia - Extremities Exam Extremities Exam: Full ROM, Normal Capillary Refill, Normal Inspection. absent: Joint Swelling, Pedal Edema - Back Exam Back Exam: NORMAL INSPECTION Assessment and Plan - Assessment and Plan (Free Text) Assessment: Patient is a 42 year old female with a past medical history of hypertension, migraines, empty sella syndrome, anemia who was admitted for evaluation and treatment of generalized weakness, SOB with exertion, abdominal pain, nausea, and vomiting. Heme/onc was consulted for management of anemia. Labs noted for normocytic anemia with elevated LDH and normal bilis. Smear reviewed and largely unremarkable. Pt scheduled to go for colo/EGD on 09/06/2018 Please obtain the following B12; Folate; Iron, TIBC; Ferritin; TSH HIV ab; HEp serologies (HCV ab; HEp B Cab; HEp B SAg; Hep B Sab;) SPEP; light chains; DAVEY; quantative immunoglobulins Agustina Riggs MD Hematology
--- NOTE | 2018-09-06 17:15 | CP.PCM.PN ---
Subjective - Date & Time of Evaluation Date of Evaluation: 09/06/18 Time of Evaluation: 19:00 - Subjective Subjective: No active issues, complaints ROS: 12 ROS negative Objective - Vital Signs/Intake and Output Vital Signs (last 24 hours): Temp Pulse Resp BP Pulse Ox 97.9 F 104 H 18 117/75 97 09/06/18 08:00 09/06/18 10:00 09/06/18 08:00 09/06/18 08:00 09/06/18 08:00 - Medications Medications: Current Medications Acetaminophen (Tylenol 325mg Tab) 650 mg PO Q6H PRN PRN Reason: Headache Last Admin: 09/03/18 18:30 Dose: 650 mg Arformoterol Tartrate (Brovana) 15 mcg IH [id number] [facility] Last Admin: 09/06/18 08:10 Dose: 15 mcg Bisacodyl (Dulcolax) 10 mg PO ONCE ONE Stop: 09/06/18 18:01 Budesonide (Pulmicort Respules) 0.5 mg IH [id number] [facility] Last Admin: 09/06/18 08:11 Dose: 0.5 mg Losartan Potassium (Cozaar) 100 mg PO DAILY [facility] Last Admin: 09/06/18 09:37 Dose: 100 mg - Labs Labs: 09/06/18 05:30 09/06/18 05:30 - Constitutional Appears: Well - Respiratory Exam Respiratory Exam: Clear to Ausculation Bilateral, NORMAL BREATHING PATTERN - Cardiovascular Exam Cardiovascular Exam: REGULAR RHYTHM, +S1, +S2. absent: Murmur - Extremities Exam Extremities Exam: Full ROM, Normal Capillary Refill, Normal Inspection. absent: Joint Swelling, Pedal Edema Assessment and Plan - Assessment and Plan (Free Text) Assessment: Patient is a 42 year old female with a past medical history of hypertension, migraines, empty sella syndrome, anemia who was admitted for evaluation and treatment of generalized weakness, SOB with exertion, abdominal pain, nausea, and vomiting. Heme/onc was consulted for management of anemia. Labs noted for normocytic anemia with elevated LDH and normal bilis. Smear reviewed and largely unremarkable. Pt scheduled to go for colo/EGD on 09/06/2018 Please obtain the following B12; Folate; Iron, TIBC; Ferritin; TSH HIV ab; HEp serologies (HCV ab; HEp B Cab; HEp B SAg; Hep B Sab;) SPEP; light chains; DAVEY; quantative immunoglobulins Agustina Riggs MD Hematology
[2018-09-06] MEDS ORDERED: Bisacodyl 5mg EC Tab PO ONE (18:00)
--- NOTE | 2018-09-06 18:16 | PN ---
DATE: 09/06/2018 REFERRING PHYSICIAN: Mary Pollard MD SUBJECTIVE: She is lying in the bed with the head elevated at 45 degrees. Night was unremarkable. Cough is better. No shortness of breath. No nausea, vomiting, diarrhea, leg pain, or leg swelling. OBJECTIVE GENERAL: In no acute distress. VITAL SIGNS: Temperature is 98, heart rate is 104, respiratory rate is 18, blood pressure 117/75, pulse ox 97% on room air. HEENT: Moist mucous membranes. Crowded airway. Mallampati score is 4. NECK: Supple. No JVD. LUNGS: Fair airflow with few rhonchi. HEART: S1 and S2. ABDOMEN: Soft, nontender. No organomegaly. EXTREMITIES: No edema. NEUROLOGICAL: Awake, alert, follows simple commands. MEDICATIONS: She is on Brovana inhaled twice a day, Cozaar 100 mg daily, Dulcolax 10 mg daily, getting GoLYTELY, Pulmicort inhaled twice a day, Tylenol p.r.n. basis. LABORATORY DATA: Hemoglobin 8.2, hematocrit 24.4, WBC 5.3, platelet count is 82,000. Sodium 137, potassium 4.1, chloride 102, bicarbonate 28, BUN 11, creatinine 0.8, glucose 210, calcium is 8.6. AST 22, ALT 19, alk phos is 94, albumin is 3.3. IMPRESSION AND PLAN: Severe anemia, receiving iron; diabetes; hypertension; may have chronic lung disease. There is also probably a component of sleep apnea syndrome. Clinically, she is better. GI workup is in progress. Continue bronchodilator. Keep the head elevated at 45 degrees. Gastric prophylaxis. SCDs to lower extremities. Thank you and we will follow with you. John Morales MD
[2018-09-07 06:17] LABS: INR 1.2; PROTHROMBIN TIME 13.8 SECONDS (9.4-12.5)
[2018-09-07 06:21] LABS: HEMOGLOBIN 8.4 g/dL (12.0-16.0); MEAN CELL VOLUME 89.1 fl (80.0-105.0); MEAN CORPUSCULAR HEMOGLOBIN 29.5 pg (25.0-35.0); MEAN CORPUSCULAR HGB CONC 33.1 g/dl (31.0-37.0); RBC 2.85 10^6/uL (3.5-6.1); RED CELL DISTRIBUTION WIDTH 16.3 % (11.5-14.5); WHITE BLOOD COUNT 5.5 10^3/uL (4.5-11.0)
[2018-09-07 06:22] LABS: ALB/GLOB RATIO 0.7 (1.1-1.8); ALBUMIN 3.3 g/dL (3.0-4.8); ALT/SGPT 18 U/L (7-56); AST/SGOT 18 U/L (14-36); BLOOD UREA NITROGEN 9 mg/dL (7-21); CALCIUM 8.5 mg/dL (8.4-10.5); GFR NON-AFRICAN AMERICAN > 60
[2018-09-07] MEDS: Budesonide 0.5 mg/2 ml Inhal Susp UD IH SCH (07:48)
[2018-09-07] MEDS: Arformoterol 15 mcg/2 ml Inh Sol IH SCH (07:48)
--- NOTE | 2018-09-07 08:47 | CP.PCM.PN ---
Subjective - Date & Time of Evaluation Date of Evaluation: 09/07/18 Time of Evaluation: 08:00 - Subjective Subjective: Ovidio Guaman- Internal Medicine Resident- Progress Note on Behalf of Hematology/Oncology Patient seen and examined. No acute events overnight. Offers no new complaints at this time. Denies fevers, chills, headache, changes in his vision/hearing, SOB at rest, chest pain, cough, wheezing, abdominal pain, nausea, vomiting, diarrhea, blood per rectum, blood in urine, black stools, changes in stool caliber, constipation, and urinary symptoms. 12 Point ROS negative except as indicated in HPI Physical Examination: - Constitutional Appears: No Acute Distress - Head Exam Head Exam: ATRAUMATIC, NORMOCEPHALIC - Eye Exam Eye Exam: EOMI, Normal appearance - ENT Exam ENT Exam: Mucous Membranes Moist - Neck Exam Neck exam: Positive for: Full Rom - Respiratory Exam Respiratory Exam: Clear to Auscultation Bilateral, NORMAL BREATHING PATTERN. absent: Accessory Muscle Use, Rales, Rhonchi, Wheezes, Respiratory Distress - Cardiovascular Exam Cardiovascular Exam: REGULAR RHYTHM, RRR, +S1, +S2. absent: Bradycardia, Tachycardia - GI/Abdominal Exam GI & Abdominal Exam: soft, nontender to palpation, no guarding, no rebound tenderness - Extremities Exam Extremities exam: Positive for: full ROM, normal capillary refill, normal inspection, pedal pulses present. Negative for: calf tenderness, joint swelling, pedal edema, tenderness - Back Exam Back exam: absent: CVA tenderness (L), CVA tenderness (R) - Neurological Exam Neurological exam: Awake, Alert, Oriented x3 - Psychiatric Exam Psychiatric exam: Normal Affect, Normal Mood - Skin Skin Exam: Dry, Warm Assessment and Plan: Patient is a 42 year old female with a past medical history of hypertension, migraines, empty sella syndrome, anemia who was admitted for evaluation and treatment of generalized weakness, SOB with exertion, abdominal pain, nausea, and vomiting. Heme/onc was consulted for management of anemia. Anemia - normocytic anemia with elevated LDH and normal bilirubin - Hgb trend stable ~ 8.4 s/p 2 units pRBCs, will monitor closely via daily CBC - ferritin 279 elevated for gender/age group - Hepatitis panel and HIV ordered and panel - scheduled to go for colo/EGD on 09/06/2018 - peripheral smear required- will be able to order if patient is made inpatient - FOBT ordered and pending - iron, TIBC, Vitamin b12, Vitamin B9 ordered and pending - spep, light chains, immunofixation immunoglobulins ordered and pending Please make note this is a complex patient with multiple comorbid medical issues. We will continue to monitor the patient patient aggressively. Time spend with the patient is greater than 45 minutes. Patient case discussed with, and plan approved by attending physician, Dr. Saji Gutierrez. Objective - Vital Signs/Intake and Output Vital Signs (last 24 hours): Temp Pulse Resp BP Pulse Ox 97.7 F 80 18 94/52 L 96 09/07/18 08:07 09/07/18 08:07 09/07/18 08:07 09/07/18 08:07 09/07/18 08:07 - Medications Medications: Current Medications Acetaminophen (Tylenol 325mg Tab) 650 mg PO Q6H PRN PRN Reason: Headache Last Admin: 09/03/18 18:30 Dose: 650 mg Arformoterol Tartrate (Brovana) 15 mcg IH [id number] [facility] Last Admin: 09/07/18 07:48 Dose: 15 mcg Budesonide (Pulmicort Respules) 0.5 mg IH [id number] [facility] Last Admin: 09/07/18 07:48 Dose: 0.5 mg Losartan Potassium (Cozaar) 100 mg PO DAILY [facility] Last Admin: 09/06/18 09:37 Dose: 100 mg - Labs Labs: 09/07/18 05:35 09/07/18 05:35 PT 13.8 SECONDS (9.4-12.5) H 09/07/18 05:35 INR 1.20 09/07/18 05:35
--- NOTE | 2018-09-07 08:57 | PN ---
DATE: 09/06/2018 SUBJECTIVE: The patient was seen and examined at the bedside. The patient is looking comfortable. Getting a liquid diet today. No fever. No chills. No hematuria or hematochezia. Do not have bowel movement from a couple of days. No headache or dizziness. No hematuria or hematochezia. No cough. No rhinitis. PHYSICAL EXAMINATION: VITAL SIGNS: Temperature 97.9, pulse 89, respiratory rate 18, blood pressure 117/75, and pulse oximetry 97. HEENT: Head; normocephalic and atraumatic. Eyes; PERRLA. Extraocular muscles are intact. Conjunctivae clear. Nose patent. Mucous membranes moist. NECK: Supple. No carotid bruits. No JVD or thyromegaly. CHEST: Bilaterally symmetrical. HEART: S1 and S2 positive. LUNGS: Clear to auscultation. ABDOMEN: Soft. Bowel sounds present. No organomegaly. EXTREMITIES: No edema. No cyanosis. NEUROLOGIC: The patient is awake and alert. Moving all four extremities. No focal deficits. MEDICATIONS: Tylenol, Brovana, Dulcolax, Pulmicort, losartan, LABORATORY DATA: White blood cells 5.3, hemoglobin 8.2, hematocrit 24.4, and platelets 82. Sodium 137, potassium 4.1, BUN 11, creatinine 0.8, and glucose 210. ASSESSMENT AND PLAN: Ms. Ignacia Goins is a 42-year-old lady with anemia, status post 2 units of packed red blood cells, thrombocytopenia, hyperglycemia with history of empty sella syndrome, migraines, hypertension, anemia, history of menorrhagia, and came with symptomatic anemia. After blood transfusion, response was inadequate. Menorrhagia has been stable as per patient. No overt gastrointestinal bleeding, but the patient reports that stool seemed darker than usual. Sent stool for stool occult. Unintentional weight loss. further concern of underlying malignancy even the thrombocytopenia unclear etiology, but is down trending, getting a proton pump inhibitor. CAT scan of the abdomen and pelvis, p.o. and IV contrast ordered . Plan for EGD on 09/07/2018. Gastrointestinal got the consent. N.p.o. after midnight, getting clear liquid diet, getting preparation, and proton pump inhibitor on hold due to thrombocytopenia. Gastrointestinal and deep venous thrombosis prophylaxes. Repeat labs. We will follow up. Mary Pollard MD [facility]
[2018-09-07 12:11] LABS: HEPATITIS B SURFACE AG Negative (NEGATIVE)
[2018-09-07 12:16] LABS: HEPATITIS A IGM NEGATIVE (NEGATIVE)
[2018-09-07 12:18] LABS: HEPATITIS B CORE AB NEGATIVE (NEGATIVE)
[2018-09-07 12:29] LABS: HEPATITIS C ANTIBODY NEGATIVE (NEGATIVE)
[2018-09-07] MEDS ORDERED: Sodium Chloride 0.9% 1,000 ML IV SCH (13:00)
[2018-09-07] MEDS ORDERED: Lactated Ringer's 1,000 ML IV SCH (17:00)
[2018-09-07] MEDS ORDERED: Propofol 10 mg/ml Inj (20 ML) ONE (17:01)
[2018-09-07 18:17] VITALS: PULSE 76; RESP 18; O2SAT 97
[2018-09-07 18:21] VITALS: BP 109/68; TEMP 98
--- NOTE | 2018-09-07 21:05 | PN ---
DATE: 09/07/2018 PULMONARY PROGRESS NOTE REFERRING PHYSICIAN: Mary Pollard MD SUBJECTIVE: The patient is sitting side of the bed. No acute distress. The patient reports wanting to be discharged to home today. The patient also reports that she is scheduled for endoscopy today. No reported headache, nasal congestion, shortness of breath, chest pain, abdominal pain, nausea, vomiting, leg pain, leg swelling. The patient does report occasional dry cough. OBJECTIVE: VITAL SIGNS: Blood pressure 104/64, pulse 104, temp 98, respirations 19, pulse ox 99% on room air. PHYSICAL EXAMINATION: GENERAL: No acute distress. HEENT: Moist mucous membranes. Crowded airway. Mallampati score is 4. NECK: Supple. No JVD. LUNGS: Fair airflow bilaterally. CARDIOVASCULAR: S1 and S2 audible. ABDOMEN: Soft, nontender. No organomegaly. No abdominal distention. EXTREMITIES: No edema bilaterally. NEUROLOGIC: Awake, alert, oriented. Able to follow commands. MEDICATIONS: Reviewed. Tylenol 325 mg two tablets every 6 hours p.r.n., Brovana 15 mcg inhalation every 12 hours, Pulmicort 0.5 mg inhalation every 12 hours, Cozaar 100 mg daily, sodium chloride 1000 mL at 75 mL per hour IV. LABORATORY DATA: Reviewed. WBC 5.5, RBC 2.85, hemoglobin 8.4, hematocrit 25.4, platelets 78. PT 13.8, INR 1.20. Sodium 137, potassium 4.3, chloride 101, carbon dioxide 30, anion gap 10, BUN 9, creatinine 0.8, GFR greater than 60, random glucose 159, calcium 8.5. Total bilirubin 0.5, AST 18, ALT 18, alkaline phosphatase 98, total protein 8, albumin 3.3, globulin 4.7, albumin/globulin ratio 0.7. Vitamin B12 is 672. HCG urine negative. Hepatitis A IgM negative. Hepatitis B antigen negative. Hepatitis B core IgM negative. Hepatitis C antibody negative. IMPRESSION AND PLAN: Severe anemia, diabetes, hypertension, may have chronic lung disease, gastroesophageal reflux disease, suspected sleep apnea syndrome. Clinically, the patient is doing better. Gastroenterology workup in progress. Continue bronchodilators. Keep head elevated 45 degrees. Gastric prophylaxis. Encourage smoking cessation. Sequential compression devices to bilateral lower extremities. This patient was seen and examined with Dr. Morales, discussed assessment and plan as described above. Thank you for this consult and we will follow with you. Candelario Clarke APN John Morales MD
[2018-09-09 06:17] LABS: ALBUMIN (PEP) 3.1 g/dL (3.8-4.8); ALPHA-1-GLOBULIN (PEP) 0.4 g/dL (0.2-0.3)
== END 2018-09-07 19:20 | disposition home or self-care (01) | DRG 812 ==
LOC: ED 10:38 → ERH 13:59 → 3RNO 15:21 → OBSVTOIN 09-05 17:55
PROVIDERS: ADMIT Internal Medicine; ATTEND Internal Medicine
PROC: 30233N1 Transfusion of Nonautologous Red Blood Cells into Peripheral Vein, Percutaneous Approach (ICD-10-PCS; principal; 2018-09-03)
PROC: 3E0F7GC Introduction of Other Therapeutic Substance into Respiratory Tract, Via Natural or Artificial Opening (ICD-10-PCS; 2018-09-05)
PROC: 0DB68ZX Excision of Stomach, Via Natural or Artificial Opening Endoscopic, Diagnostic (ICD-10-PCS; 2018-09-07)
PROC: 0DJD8ZZ Inspection of Lower Intestinal Tract, Via Natural or Artificial Opening Endoscopic (ICD-10-PCS; 2018-09-07)
PROC: 0DB98ZX Excision of Duodenum, Via Natural or Artificial Opening Endoscopic, Diagnostic (ICD-10-PCS; 2018-09-07 16:15)
DX: D50.9 Iron deficiency anemia, unspecified (principal); D69.6 Thrombocytopenia, unspecified; E11.65 Type 2 diabetes mellitus with hyperglycemia; G43.109 Migraine with aura, not intractable, without status migrainosus; E83.42 Hypomagnesemia; I10 Essential (primary) hypertension; N92.0 Excessive and frequent menstruation with regular cycle; F17.210 Nicotine dependence, cigarettes, uncomplicated; K29.50 Unspecified chronic gastritis without bleeding

== ENCOUNTER 2018-09-24 07:44 | Inpatient (IN) | payer BC ==
[2018-09-24 07:53] VITALS: BMI 35.4
[2018-09-24] MEDS: Sodium Chloride 0.9% 1,000 ML IV SCH ×2 (08:41→20:44)
[2018-09-24 08:46] LABS: BASO # 0.02 K/mm3 (0.0-2.0); BASO % 0.3 % (0.0-3.0); EOS % 0.1 % (1.5-5.0); GRAN # 2.27 (1.4-6.5); GRAN % 31.8 % (50.0-68.0); LYMPH % 41.3 % (22.0-35.0); MEAN CELL VOLUME 92.2 fl (80.0-105.0); MEAN CORPUSCULAR HEMOGLOBIN 30.6 pg (25.0-35.0); MEAN CORPUSCULAR HGB CONC 33.2 g/dl (31.0-37.0); MEAN PLATELET VOLUME 8.7 fl (7.0-11.0); MONO # 1.9 (0.1-0.6); MONO % 26.5 % (1.0-6.0); PLATELET COUNT 171 10^3/uL (120.0-450.0); RBC 2.19 10^6/uL (3.5-6.1); RED CELL DISTRIBUTION WIDTH 16.2 % (11.5-14.5); WHITE BLOOD COUNT 7.1 10^3/uL (4.5-11.0)
--- NOTE | 2018-09-24 08:51 | ED PDOC ---
Arrival/HPI - General Chief Complaint: Dizziness/Lightheaded Time Seen by Provider: 09/24/18 08:35 Historian: Patient - History of Present Illness Narrative History of Present Illness (Text): 09/24/18 08:30 43 year old female, whose past medical history includes nkda, many years ago, empty cellar syndrome, diabetes, hypertension, and anemia, who presents to the Emergency department complaining of dizziness since yesterday. Patient states she went to see her PMD yesterday, who told her to present to the Emergency department and prescribed a new medication. Patient notes she has not picked up that medication as of yet due to symptoms limiting her. Patient states that she has had similar symptoms in the past, which went away on their own. Patient notes that her blood glucose never goes down to 100 and always stays in the "2 something range." Patient notes that constant thirst, appetite changes, and approximately 45 pounds of weight loss in 1 month. 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 Patient states she is a smoker, noting she used to smoke a ppd but is currently down to 4 a day. Patient denies any pains, vaginal discharge, vaginal bleeding, urine output changes, stool changes, hematochezia, or any other complaints. PMD: Dr. Pollard Time/Duration: 24 hours (Patient notes symptoms since yesterday) Symptom Onset: Sudden Symptom Course: Unchanged Activities at Onset: Light Past Medical History - Provider Review Nursing Documentation Reviewed: Yes - Infectious Disease Hx of Infectious Diseases: None - Cardiac Hx Cardiac Disorders: Yes Hx Hypertension: Yes - Pulmonary Hx Respiratory Disorders: Yes (SMOKES 2 CIGARETTES A DAY.) - Neurological Hx Neurological Disorder: Yes Other/Comment: empty sella syndrome - HEENT Hx HEENT Disorder: No - Renal Hx Renal Disorder: No - Endocrine/Metabolic Hx Endocrine Disorders: Yes Hx Diabetes Mellitus Type 2: Yes - Hematological/Oncological Hx Blood Disorders: Yes Hx Anemia: Yes (09-03-18 BLOOD TRANSFUSION) - Integumentary Hx Dermatological Disorder: No - Musculoskeletal/Rheumatological Hx Musculoskeletal Disorders: No Hx Falls: No - Gastrointestinal Hx Gastrointestinal Disorders: No - Genitourinary/Gynecological Hx Genitourinary Disorders: Yes (C SECTION X 1) - Psychiatric Hx Psychophysiologic Disorder: No Hx Substance Use: No - Surgical History Hx Section: Yes - Anesthesia Hx Anesthesia: Yes Hx Anesthesia Reactions: No Hx Malignant Hyperthermia: No Family/Social History - Physician Review Nursing Documentation Reviewed: Yes Family/Social History: No Known Family HX Smoking Status: Current Some Days Smoker Hx Alcohol Use: No Hx Substance Use: No Allergies/Home Meds Allergies/Adverse Reactions: Allergies shrimp Allergy (Verified 09/24/18 07:58) ANAPHYLAXIS Home Medications: Home Meds Medication Instructions Recorded Confirmed Candesartan Cilexetil [Atacand] 16 mg PO DAILY 09/03/18 09/24/18 Ascorbic Acid [Vitamin C] 500 mg PO DAILY 09/24/18 09/24/18 Cyanocobalamin (Vitamin B-12) 1,000 mcg PO DAILY 09/24/18 09/24/18 [Vitamin B-12] Ferrous Sulfate [Ferosul] 325 mg PO DAILY 09/24/18 09/24/18 metFORMIN [glucOPHAGE] 500 mg PO BID 09/24/18 09/24/18 Review of Systems - Physician Review All systems were reviewed & negative as marked: Yes - Review of Systems Constitutional: absent: Fatigue Eyes: absent: Vision Changes ENT: absent: Hearing Changes Respiratory: absent: SOB, Cough Cardiovascular: absent: Chest Pain Gastrointestinal: Appetite Changes (Pt notes appetite changes). absent: Normal, Stool Changes, Hematochezia Genitourinary Female: Normal. absent: Hematuria, Urine Output Changes, Vaginal Bleeding, Vaginal Discharge Musculoskeletal: absent: Arthralgias Skin: absent: Rash, Pruritis Neurological: Dizziness (Pt notes dizziness). absent: Normal Endocrine: absent: Diaphoresis Hemo/Lymphatic: absent: Adenopathy Physical Exam Vital Signs Reviewed: Yes Vital Signs Temp Pulse Resp BP Pulse Ox 09/24/18 07:53 97.8 F 100 H 20 106/64 97 Temperature: Afebrile Blood Pressure: Normal Pulse: Tachycardic Respiratory Rate: Normal Appearance: Positive for: Well-Appearing, Non-Toxic, Comfortable Pain Distress: None Mental Status: Positive for: Alert and Oriented X 3 Finger Stick Blood Glucose: 147 - Systems Exam Head: Present: Atraumatic, Normocephalic Pupils: Present: PERRL Extroacular Muscles: Present: EOMI Conjunctiva: Present: Normal Mouth: Present: Moist Mucous Membranes Neck: Present: Normal Range of Motion. No: Meningeal Signs Respiratory/Chest: Present: Clear to Auscultation, Good Air Exchange. No: Respiratory Distress, Accessory Muscle Use Cardiovascular: Present: Regular Rate and Rhythm, Normal S1, S2. No: Murmurs Abdomen: No: Tenderness, Distention, Peritoneal Signs Back: Present: Normal Inspection. No: CVA Tenderness Upper Extremity: Present: Normal Inspection. No: Cyanosis, Edema Lower Extremity: Present: Normal Inspection. No: Edema Neurological: Present: GCS=15, CN II-XII Intact, Speech Normal Skin: Present: Warm, Dry, Normal Color. No: Rashes Psychiatric: Present: Alert, Oriented x 3, Normal Insight, Normal Concentration Medical Decision Making ED Course and Treatment: 09/24/18 08:30 Impression: 43 year old female who presents to the Emergency department complaining of lightheadedness and dizziness since yesterday. Well appearing on exam, normal neuro exam. Was recently seen here previously for similiar. Had negative CTH at that time. Reports anemia previously, but has been taking her pills. No trauma or fall. Differential Diagnosis included but are not limited to: Plan: -- EKG -- Labs -- X-Ray of chest, 2 views (PA/LAT) -- Antivert 12.5mg PO -- IV fluids -- POC Urine Test -- Reassess and disposition Prior Visits: Notes and results from previous visits were reviewed. Patient was last seen in the emergency department on 09/03/18 for 2 month history of worsening dizziness, fatigue, chest pain, shortness of breath and vomiting. Patient was hospitalized with diagnosis of symptomatic anemia, tachycardia, hyperglycemia, nausea and vomiting. Progress Notes: 09/24/18 08:57 Hemoglobin 6.7. Pt denies any dark blood stool. Pt notes light period recently. No falls. No blood thinners. 09/24/18 09:03 Pt consented w/ RN becca witness. Pt in NAD. type and cross and 1U blood ordered Paged Dr. Pollard 09/24/18 09:15 appreciate consult w/ Dr. Pollard: to admit to his service. Pt in NAD and agreeable to plan. - RAD Interpretation Radiology Orders: 09/24/18 08:36 CHEST TWO VIEWS (PA/LAT) [RAD] Stat - EKG Interpretation EKG Interpretation (Text): 09/24/18 EKG: Ordered, reviewed, and independently interpreted the EKG. Rate : 103 BPM Rhythm : Sinus Tachycardia Interpretation : No STEM-I Interpreted by ED Physician: Yes Type: 12 lead EKG - Medication Orders Current Medication Orders: Sodium Chloride (Sodium Chloride 0.9%) 1,000 mls @ 100 mls/hr IV .Q10H ORESTES Last Admin: 09/24/18 08:41 Dose: 100 mls/hr eMAR Start Stop Document 09/24/18 08:41 AMA (Rec: 09/24/18 08:42 AMA [id number]) Intravenous Solution Start Date 09/24/18 Start Time 08:42 Discontinued Medications Meclizine HCl (Antivert) 12.5 mg PO STAT STA Stop: 09/24/18 08:38 Last Admin: 09/24/18 08:47 Dose: 12.5 mg - Scribe Statement The provider has reviewed the documentation as recorded by the Burakibe Sherin Garcia All medical record entries made by the Burakibleeanna were at my direction and personally dictated by me. I have reviewed the chart and agree that the record accurately reflects my personal performance of the history, physical exam, medical decision making, and the department course for this patient. I have also personally directed, reviewed, and agree with the discharge instructions and disposition. Disposition/Present on Arrival - Present on Arrival Any Indicators Present on Arrival: No History of DVT/PE: No History of Uncontrolled Diabetes: No Urinary Catheter: No History of Decub. Ulcer: No History Surgical Site Infection Following: None - Disposition Have Diagnosis and Disposition been Completed?: Yes Diagnosis: Symptomatic anemia Disposition Time: 09:03 Patient Problems: Current Active Problems Problem Status Onset Symptomatic anemia Acute Condition: GOOD
[2018-09-24 08:53] LABS: HEMOGLOBIN 6.7 g/dL (12.0-16.0)
[2018-09-24 08:57] LABS: ALB/GLOB RATIO 0.7 (1.1-1.8); ALBUMIN 3.6 g/dL (3.0-4.8); ALT/SGPT 16 U/L (7-56); AST/SGOT 38 U/L (14-36); BLOOD UREA NITROGEN 10 mg/dL (7-21); CALCIUM 8.9 mg/dL (8.4-10.5); GFR NON-AFRICAN AMERICAN > 60
[2018-09-24 09:09] LABS: TROPONIN I < 0.01 ng/mL
[2018-09-24 09:42] LABS: CORRECTED WBC 6.8 K/mm3 (4.5-11.0); LYMPHOCYTE 55 % (22.0-35.0); MONOCYTE 18 % (1.0-6.0); NEUTROPHIL 27 % (50.0-70.0); NUCLEATED RED BLOOD CELL 5 %
[2018-09-24 09:43] LABS: PLATELET ESTIMATE NORMAL (NORMAL)
[2018-09-24] MEDS ORDERED: Potassium Chloride 20 mEq ER Tab PO STA (09:48)
--- NOTE | 2018-09-24 14:49 | CARD ---
APPROVED REPORT Date of service: 09/24/2018 EKG Measurement Heart [id number] <Conclusion> Sinus tachycardia LVH Septal infarct, age undetermined NSSTW changes Prolonged QTc
--- NOTE | 2018-09-24 17:34 | RAD ---
Date of service: 09/24/2018 HISTORY: Dizziness COMPARISON: 09/03/2018 TECHNIQUE: Chest PA and lateral FINDINGS: LINES AND TUBES: None. LUNG AND PLEURA: The lungs are well inflated and clear. No pleural effusion or pneumothorax. HEART AND MEDIASTINUM: The heart is not enlarged. No aortic atherosclerotic calcification present. The hilar and mediastinal contours are within normal limits. SKELETAL STRUCTURES: The bony structures are within normal limits for the patient's age. VISUALIZED UPPER ABDOMEN: Normal. OTHER FINDINGS: None. IMPRESSION: No active pulmonary disease.
[2018-09-24] MEDS ORDERED: Pneumococcal 23-Valent Vaccine IM ONE (17:56)
[2018-09-24] MEDS ORDERED: Influenza Vaccine 60 mcg/0.5 mL SYR (4YR UP) IM ONE (17:56)
[2018-09-24] MEDS ORDERED: Sucralfate 1 gm/10 ml Oral Susp UD PO ONE (23:36)
--- NOTE | 2018-09-25 00:36 | CON ---
DATE: 09/24/2018 This is Ms. Ignacia Costa's [facility] consult for Dr. Riggs. CHIEF COMPLAINT: Dizziness. HISTORY OF PRESENT ILLNESS: The patient is a 43-year-old female, recently discharged from [facility], 09/05/2018, with transfusion at that time for hemoglobin of 7.4. She is now readmitted for dizziness; however, upon clinical evaluation and lab testing, she seemed to have a hemoglobin of 6.7. The patient denies bleeding; reports her last period was approximately 2 weeks prior with very light flow, lasting approximately 3 days. Denies with the patient denying melena, hematochezia, and except for dizziness is otherwise without complaint today. At present, she is status post transfusion of 1 unit of packed red blood cells with further recommendations to be listed as below. ALLERGIES: TO SHRIMP/SEAFOOD. MEDICATIONS: Medicines Include Atacand and doxepin. PAST MEDICAL HISTORY: Significant for hypertension, empty sella turcica syndrome, anemia. FAMILY HISTORY AND SOCIAL HISTORY: Rare alcohol use. Tobacco; approximately a pack a day for 15 years, now smoking approximately 4-5 cigarettes per day. One child, alive and well. One brother, alive and well. REVIEW OF SYSTEMS: Twelve-point review of systems was done, which is negative to questioning except for items mentioned in the history of present illness. OBJECTIVE/PHYSICAL EXAMINATION VITAL SIGNS: Temperature 98.6, pulse 95, respirations 20, blood pressure 126/76, pulse ox 97%. HEENT: Unremarkable. NECK: Supple. HEART: Tachy rate, regular rhythm. LUNGS: Clear. ABDOMEN: Soft, obese, nontender. EXTREMITIES: No edema. SKIN: Warm and dry. NEUROLOGIC: Awake and alert. LABORATORY DATA: The patient's labs were done. White blood cell count is 7.1, hemoglobin is 6.7, hematocrit of 20.2, platelet count of 171,000 with a chem metabolic panel showing a potassium of 3.3, nonfasting glucose 164, AST of 38, total protein 8.5, otherwise, normal chem metabolic panel. Upon review of her previous hospitalization, it should be noted that the patient did have testing done on 09/07/2018, showing an IgG of 2227 with an IgA of 993 and an IgM of 110 with an DAVEY and serum protein electrophoresis interpretation showing consistent with a chronic inflammatory pattern. The patient also had free kappa light chains of 110.8 with a free free lambda chain of 53.5 with a ratio of 2.07. She had an EGD done on 09/08/2018, showing gastritis with poor preparation for colonoscopy. Her hepatitis A, B, C testing was negative on 09/07/2018, with an HIV test also negative that day. The patient did have other testing done including an EKG done earlier today, which was read as sinus tachycardia; left ventricular hypertrophy; septal infarct, age indeterminate; nonspecific ST-T wave changes; prolonged QTc interval. The patient had a chest x-ray done earlier today; it was read as no active pulmonary disease. The patient did have a CAT scan of the abdomen and pelvis done on 09/05/2018; it was read as hepatomegaly with fatty infiltration; bilateral adnexal cysts, left larger than right; no definite large rectal mass seen; however, followup colonoscopy recommended if not already performed; probable hyperdense cyst, lower pole, left kidney; ultrasound followup could be performed to confirm and exclude any solid lesion. The patient had a CT scan of her chest done, 09/03/2018; it was read as unremarkable CT pulmonary angiogram, no pulmonary embolus. The patient had pathology specimens on 09/08/2018, of the duodenum. Biopsies were done, which were essentially benign mucosa. Gastric biopsy was done showing benign gastric mucosa with the impression at that time of her EGD, gastritis, hemorrhoids, poor bowel preparation by Dr. Ramon on 09/09/2018. ASSESSMENT AND PLAN: For this patient is that of severe symptomatic anemia. Rule out gastrointestinal versus hematopoietic etiology, dizziness secondary to above, history of hypertension, migraines, empty sella turcica syndrome. Upon review of previous testing, labs were not done for iron-deficiency anemia, which will be ordered for tomorrow morning. This is a complex patient with a comprehensive medically necessary and appropriate visit carried out in excess of 40 minutes with the patient's questions answered to her satisfaction. Ricky Montes MD
--- NOTE | 2018-09-25 03:52 | CON ---
DATE: 09/24/2018 LOCATION: Room 371. HISTORY OF PRESENT ILLNESS: This is a 43-year-old female with known history of type 2 diabetes and hypertension, presenting here with progressively worsening dizziness and lightheadedness with generalized body weakness and significant history of iron deficiency anemia and now being referred for endocrine evaluation and management. PAST MEDICAL HISTORY: She has known history of empty sella syndrome with some kind of hormonal dysfunction, the exact nature is not known at this time; history of type 2 diabetes, currently on metformin taken as 1 g b.i.d.; history of hypertension and dyslipidemia; history of obesity with polycystic ovarian syndrome. She admits to irregular menstrual cycles as noted; history of chronic iron deficiency anemia and received recent packed RBC transfusion as noted. FAMILY HISTORY: Positive for diabetes, hypertension. SOCIAL HISTORY: The patient admits to nicotine dependence, but has cut down her smoking from a pack a day to a few cigarettes daily as noted. She has a supportive family otherwise with no other known substance use. REVIEW OF SYSTEMS: Admits to generalized body weakness with progressively worsening dizziness and lightheadedness and easy fatigability and tiredness. Also admits to bifrontal headaches with occasional visual blurring as noted. No chest pains, but admits to episodic palpitations with progressive shortness of breath, especially on exertion. Her oral intake has been variable with nausea, dyspepsia, and vague upper abdominal pains. No recent alterations of bowel and urinary patterns. PHYSICAL EXAMINATION: GENERAL: An overweight female in no apparent distress. VITAL SIGNS: Blood pressure of 140/80; pulse of 100 beats per minute, regular; temperature 98; respirations 20; height is 5 feet 7 inches; weight 226 pounds. HEENT: Head normocephalic. Eyes anicteric with pale conjunctivae. Funduscopy not possible at this time. Ears, nose, and throat otherwise normal. NECK: Supple. Thyroid gland is normal size. No carotid bruits or cervical adenopathy. CARDIOPULMONARY: Some adynamic precordium. S1, S2 are rapid and regular. LUNGS: Clear to auscultation. ABDOMEN: Obese, soft, with positive bowel sounds. EXTREMITIES: No peripheral edema. Pulses are +2 bilaterally. LABORATORY DATA: Hematology, the hemoglobin is 6.7 g, hematocrit of 20, WBC 7.1, MCV 92, platelets 171. Her chemistry showed a BUN of 10, sodium 141, potassium 3.3, chloride 102, CO2 of 30, glucose 164, and creatinine 0.7. ASSESSMENT: This is a 43-year-old female with marked anemia and supervening constitutional manifestations, and is now being referred also for endocrine evaluation of known history of empty sella syndrome and associated menstrual irregularities as noted. She also has known history of type 2 diabetes and hypertension, on oral hypoglycemic therapy as noted with underlying obesity contributing to the increased insulin resistance thereof. PLAN OF MANAGEMENT: We will obtain a hemoglobin A1c to confirm her prior glycemic control and determine the need to restart her oral hypoglycemic therapy given as a combination therapy as indicated. We will also initiate a low-dose algorithm using Humalog insulin as ordered. We will obtain a comprehensive hormonal profile with a serum prolactin and a luteinizing and follicle stimulating hormone to be added. We will also obtain a serum cortisol and ACTH level and a T4 and TSH level as ordered. We will consider an MRI of the pituitary depending on the prolactin value as ordered. We will follow and advise accordingly. Angelina Levy MD
[2018-09-25] MEDS: Sucralfate 1 gm/10 ml Oral Susp UD PO SCH ×2 (06:23→17:19)
[2018-09-25 06:53] LABS: BASO # 0.01 K/mm3 (0.0-2.0); BASO % 0.2 % (0.0-3.0); EOS % 0.3 % (1.5-5.0); GRAN # 2.06 (1.4-6.5); GRAN % 33.3 % (50.0-68.0); LYMPH # 2.1 (1.2-3.4); LYMPH % 33.8 % (22.0-35.0); MEAN CELL VOLUME 87.8 fl (80.0-105.0); MEAN CORPUSCULAR HEMOGLOBIN 29.3 pg (25.0-35.0); MEAN CORPUSCULAR HGB CONC 33.3 g/dl (31.0-37.0); MEAN PLATELET VOLUME 8.6 fl (7.0-11.0); MONO % 32.4 % (1.0-6.0); PLATELET COUNT 148 10^3/uL (120.0-450.0); RBC 2.63 10^6/uL (3.5-6.1); RED CELL DISTRIBUTION WIDTH 17.1 % (11.5-14.5); WHITE BLOOD COUNT 6.2 10^3/uL (4.5-11.0)
[2018-09-25 06:54] LABS: IRON 104 ug/dL (45-180)
[2018-09-25 07:00] LABS: ALB/GLOB RATIO 0.7 (1.1-1.8); ALBUMIN 3.1 g/dL (3.0-4.8); ALT/SGPT 18 U/L (7-56); AST/SGOT 33 U/L (14-36); BLOOD UREA NITROGEN 8 mg/dL (7-21); CALCIUM 8.2 mg/dL (8.4-10.5); GFR NON-AFRICAN AMERICAN > 60; HDL CHOLESTEROL 18 mg/dL (29-60)
[2018-09-25 07:03] LABS: % IRON SATURATION 47 % (20-55); TOTAL IRON BINDING CAPACITY 224 ug/dL (265-497)
[2018-09-25 07:08] LABS: LDL CHOLESTEROL 119 mg/dL (0-129)
--- NOTE | 2018-09-25 07:19 | HP ---
DATE OF EXAM: 09/24/2018 CHIEF COMPLAINT: The patient was seen and examined at bedside on 09/24/2018 in the emergency room with chief complaint of dizziness and lightheadedness. HISTORY OF PRESENT ILLNESS: The patient is a 43-year-old female with past medical history of section, empty sella syndrome, diabetes mellitus, hypertension, anemia, actually came in my office yesterday complaining of dizziness, not feeling better, tried to send her to the hospital, but she refused. Medication was given from my office, but the patient never filled those prescriptions. Has had similar symptoms in the past. At that time, her hemoglobin was very low and blood transfusion and iron infusion was given. The patient had uncontrolled diabetes mellitus also, she was always above 200. The patient has had constant thirst, appetite change, lost 45 pounds in one month. 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 History of heavy smoking, now she is a light smoker. No fevers. No chills. No hematuria or hematochezia. PAST MEDICAL HISTORY: Hypertension, empty sella syndrome, diabetes mellitus type 2, history of blood transfusion, section. FAMILY HISTORY: Father and mother noncontributory. HABITS: No alcohol. No drug abuse. Light smoker now. History of heavy smoking. HOME MEDICATIONS: Atacand, vitamin C, iron, metformin. REVIEW OF SYSTEMS: The patient was seen and examined at the bedside in the emergency room. Still dizzy upon opening eyes and upon sitting and walking. Otherwise, no hematuria, no urinary output, no vaginal bleeding. The patient is sometimes having blurring of vision, sometimes shortness of breath upon walking. No arthralgia. No pruritus. No dizziness. No diaphoresis. PHYSICAL EXAMINATION: VITAL SIGNS: Temperature 97.8, pulse 100, respiratory rate 20, blood pressure 106/64, pulse oximetry 96%. HEENT: Head: Normocephalic and atraumatic. Eyes: PERRLA. Extraocular muscles intact. Conjunctivae clear. Nose: Patent. NECK: Supple. No carotid bruit. No JVD or thyromegaly. CHEST: Bilaterally symmetrical. HEART: S1 and S2 positive. LUNGS: Clear to auscultation. ABDOMEN: Soft. Bowel sounds positive. No organomegaly. EXTREMITIES: No edema. No cyanosis. NEUROLOGIC: The patient is awake and alert. Moving all four extremities. No focal deficits. LABORATORY DATA: White blood cell count 7.1, hemoglobin 6.7, hematocrit 20.2, and platelets 171,000. Sodium 141, potassium 3.3, BUN 10, creatinine 0.7, glucose 147, AST 38. ASSESSMENT AND PLAN: The patient is a 43-year-old female with severe anemia, status post blood transfusion; hypokalemia, replaced; hyperglycemia; uncontrolled diabetes mellitus; abnormal liver function tests. Chest x-ray and electrocardiogram done. The patient has a history of section, empty sella syndrome, diabetes mellitus, hypertension, anemia, came to emergency department complaining of dizziness since yesterday. We admitted the patient for symptomatic anemia. Discussion done with ER. Oncology consult called. The patient's oncologist is Dr. Riggs. The patient actually follows with him as outpatient. Repeat labs. We will follow up. Mary Pollard MD
[2018-09-25 07:22] LABS: HEMOGLOBIN 7.7 g/dL (12.0-16.0)
[2018-09-25 07:24] LABS: T4 7.2 ug/dL (5.5-11.0)
[2018-09-25] MEDS: Insulin Reg-LOW-Coverage SC SCH ×3 (07:45→21:39)
[2018-09-25 08:23] LABS: ATYPICAL LYMPHOCYTE 2 % (0.0-0.0); BAND 2 % (0-2); CORRECTED WBC 5.9 K/mm3 (4.5-11.0); LYMPHOCYTE 41 % (22.0-35.0); MONOCYTE 17 % (1.0-6.0); NEUTROPHIL 38 % (50.0-70.0); NUCLEATED RED BLOOD CELL 5 %
[2018-09-25 08:24] LABS: PLATELET ESTIMATE NORMAL (NORMAL)
--- NOTE | 2018-09-25 09:09 | CP.PCM.CON ---
<Norberto Nazario - Last Filed: 09/25/18 16:32> History of Present Illness - History of Present Illness History of Present Illness: PGY6 GI Fellow Consult Note Patient is a 43yo female with PMHx significant for HTN, migraines, obesity, chronic anemia and empty sella syndrome who presented to the ED with complaint of dizziness and fatigue. She saw her PCP in the office yesterday and was referred to the ED where it was noted that she had a HGB of 6.7. She has since been transfused 2 units of blood but states she remains fatigued. Denies any overt blood loss such as melena, hematochezia, hematuria, hematemesis. Last menstrual period was light and ended around 09/09/18. She had an unrevealing EGD and an aborted colonoscopy due to poor prep on her last admission. Admits to ongoing weight loss (45lbs in 2 months - 54lbs per our documentation), dysgeusia and poor appetite. No nausea, vomiting, change in bowel habits. 12 system ROS performed and negative except where stated PMHx: See HPI PSHx: C section FHx: Father - CAD Social: Prior tobacco use, denies EtOH or illicit drug use Endo: EGD/Colon on last admission earlier this month - see HPI Past Patient History - Infectious Disease Hx of Infectious Diseases: None - Past Social History Smoking Status: Light Smoker < 10 Cigarettes Daily - CARDIAC Hx Cardiac Disorders: Yes (tachycardia, cp) Hx Hypertension: Yes - PULMONARY Hx Respiratory Disorders: Yes (SMOKES 2 CIGARETTES A DAY.) - NEUROLOGICAL Hx Neurological Disorder: Yes Other/Comment: empty sella syndrome dx 1-2 months ago - HEENT Hx HEENT Problems: No - RENAL Hx Chronic Kidney Disease: No - ENDOCRINE/METABOLIC Hx Endocrine Disorders: Yes Hx Diabetes Mellitus Type 2: Yes - HEMATOLOGICAL/ONCOLOGICAL Hx Blood Disorders: Yes Hx Anemia: Yes (09-03-18 BLOOD TRANSFUSION) - INTEGUMENTARY Hx Dermatological Problems: No - MUSCULOSKELETAL/RHEUMATOLOGICAL Hx Musculoskeletal Disorders: Yes (r wrist sprain 12/2011) Hx Falls: No - GASTROINTESTINAL Hx Gastrointestinal Disorders: Yes (obese) - GENITOURINARY/GYNECOLOGICAL Hx Genitourinary Disorders: Yes (C SECTION X 1 20 yrs ago) - PSYCHIATRIC Hx Psychophysiologic Disorder: No - SURGICAL HISTORY Hx Surgeries: Yes (C SECTION X 1) - ANESTHESIA Hx Anesthesia: Yes Hx Anesthesia Reactions: No Hx Malignant Hyperthermia: No Meds Allergies/Adverse Reactions: Allergies Allergy/AdvReac Type Severity Reaction Status Date / Time shrimp Allergy ANAPHYLAXIS Verified 09/24/18 07:58 - Medications Medications: Current Medications Acetaminophen (Tylenol 325mg Tab) 650 mg PO Q6H PRN PRN Reason: Pain, Mild (1-3) Famotidine (Pepcid) 20 mg PO 1000,2200 [facility] Last Admin: 09/25/18 00:26 Dose: Not Given Sodium Chloride (Sodium Chloride 0.9%) 1,000 mls @ 100 mls/hr IV .Q10H [facility] Last Admin: 09/24/18 20:44 Dose: 100 mls/hr Insulin Human Regular (Humulin R Low) 0 units SC ACHS [facility]; Protocol Sucralfate (Carafate Oral Susp) 1 gm PO 0600,1600 [facility] Last Admin: 09/25/18 06:23 Dose: 1 gm Physical Exam - Constitutional Appears: Non-toxic, No Acute Distress, Other (obese) - Eye Exam Eye Exam: EOMI, PERRL - ENT Exam ENT Exam: Mucous Membranes Moist - Respiratory Exam Respiratory Exam: Clear to Auscultation Bilateral. absent: Rales, Rhonchi, Wheezes - Cardiovascular Exam Cardiovascular Exam: RRR, +S1, +S2 - GI/Abdominal Exam GI & Abdominal Exam: Normal Bowel Sounds, Soft. absent: Distended, Firm, Guarding, Hernia, Organomegaly, Rigid, Tenderness - Extremities Exam Extremities exam: Positive for: normal inspection. Negative for: pedal edema - Neurological Exam Neurological exam: Alert, Oriented x3 - Psychiatric Exam Psychiatric exam: Normal Affect, Normal Mood - Skin Skin Exam: Dry, Warm Results - Vital Signs Recent Vital Signs: Last Vital Signs Temp 97.6 F 09/25/18 07:42 Pulse 82 09/25/18 07:42 Resp 19 09/25/18 07:42 BP 113/51 L 09/25/18 07:42 Pulse Ox 99 09/25/18 07:42 - Labs Result Diagrams: 09/25/18 06:00 09/25/18 06:00 Labs: Laboratory Results - last 24 hr 09/24/18 09/24/18 09/24/18 08:05 08:40 08:40 WBC RBC Hgb Hct MCV MCH MCHC RDW Plt Count MPV Gran % Lymph % (Auto) [place] % (Auto) Eos % (Auto) Baso % (Auto) Gran # Lymph # (Auto) [place] # (Auto) Eos # (Auto) Baso # (Auto) Corrected WBC (Man) 6.8 Neutrophils % (Manual) 27 L Band Neutrophils % Lymphocytes % (Manual) 55 H Atypical Lymphs % Monocytes % (Manual) 18 H Nucleated RBC % 5 Platelet Evaluation Normal Sodium Potassium Chloride Carbon Dioxide Anion Gap BUN Creatinine Est GFR ( Amer) Est GFR (Non-Af Amer) POC Glucose (mg/dL) 147 H Random Glucose Calcium Iron TIBC % Saturation Total Bilirubin AST ALT Alkaline Phosphatase Troponin I < 0.01 Total Protein Albumin Globulin Albumin/Globulin Ratio Triglycerides Cholesterol LDL Cholesterol Direct HDL Cholesterol Thyroxine (T4) TSH 3rd Generation Blood Type Antibody Screen Crossmatch BBK History Checked 09/24/18 09/25/18 09/25/18 09:10 06:00 06:00 WBC RBC Hgb Hct MCV MCH MCHC RDW Plt Count MPV Gran % Lymph % (Auto) [place] % (Auto) Eos % (Auto) Baso % (Auto) Gran # Lymph # (Auto) [place] # (Auto) Eos # (Auto) Baso # (Auto) Corrected WBC (Man) Neutrophils % (Manual) Band Neutrophils % Lymphocytes % (Manual) Atypical Lymphs % Monocytes % (Manual) Nucleated RBC % Platelet Evaluation Sodium 139 Potassium 3.5 L Chloride 106 Carbon Dioxide 27 Anion Gap 9 L BUN 8 Creatinine 0.7 Est GFR ( Amer) > 60 Est GFR (Non-Af Amer) > 60 POC Glucose (mg/dL) Random Glucose 150 H Calcium 8.2 L Iron 104 TIBC 224 L % Saturation 47 Total Bilirubin 0.4 AST 33 ALT 18 Alkaline Phosphatase 77 Troponin I Total Protein 7.6 Albumin 3.1 Globulin 4.4 Albumin/Globulin Ratio 0.7 L Triglycerides 166 H Cholesterol 158 LDL Cholesterol Direct 119 HDL Cholesterol 18 L Thyroxine (T4) TSH 3rd Generation Blood Type O POSITIVE Antibody Screen Negative Crossmatch See Detail BBK History Checked Patient has bt 09/25/18 09/25/18 09/25/18 06:00 06:00 08:02 WBC 6.2 RBC 2.63 L Hgb 7.7 L Hct 23.1 L MCV 87.8 D MCH 29.3 MCHC 33.3 RDW 17.1 H Plt Count 148 MPV 8.6 Gran % 33.3 L Lymph % (Auto) 33.8 [place] % (Auto) 32.4 H Eos % (Auto) 0.3 L Baso % (Auto) 0.2 Gran # 2.06 Lymph # (Auto) 2.1 [place] # (Auto) 2.0 H Eos # (Auto) 0.0 Baso # (Auto) 0.01 Corrected WBC (Man) 5.9 Neutrophils % (Manual) 38 L Band Neutrophils % 2 Lymphocytes % (Manual) 41 H Atypical Lymphs % 2 H Monocytes % (Manual) 17 H Nucleated RBC % 5 Platelet Evaluation Normal Sodium Potassium Chloride Carbon Dioxide Anion Gap BUN Creatinine Est GFR ( Amer) Est GFR (Non-Af Amer) POC Glucose (mg/dL) 93 Random Glucose Calcium Iron TIBC % Saturation Total Bilirubin AST ALT Alkaline Phosphatase Troponin I Total Protein Albumin Globulin Albumin/Globulin Ratio Triglycerides Cholesterol LDL Cholesterol Direct HDL Cholesterol Thyroxine (T4) 7.2 TSH 3rd Generation 0.39 L Blood Type Antibody Screen Crossmatch BBK History Checked Assessment & Plan - Assessment and Plan (Free Text) Assessment: Patient is a 43yo female with PMHx significant for HTN, migraines, obesity, chronic anemia and empty sella syndrome who presented to the ED with complaint of dizziness and fatigue -Anemia -Unintentional weight loss -Dysguesia -Empty sella syndrome Plan: -Unclear etiology of anemia at this juncture - EGD and biopsies reviewed without significant finding -Colonoscopy aborted 2/2 poor prep; patient currently refusing repeat procedure -Agrees to follow up outpatient with heme/onc and then decide to proceed with colonoscopy -No overt GI bleeding noted by patient/staff -Pt for bone marrow bx today -Significant weight loss concerning for underlying occult malignancy -For now, transfusion support as necessary -Alteration in taste may be affecting desire to eat - can be related to anemia -Awaiting endocrinology work up - possible relationship between empty sella syndrome and anemia; appreciate input -Hematology notes from prior admission reviewed - peripheral smear unremarkable, lab work to be reviewed by their service - Date & Time Date: 09/25/18 Time: 07:45 <Carlos Manuel Ramon V - Last Filed: 09/25/18 22:49> Meds - Medications Medications: Current Medications Acetaminophen (Tylenol 325mg Tab) 650 mg PO Q6H PRN PRN Reason: Pain, Mild (1-3) Famotidine (Pepcid) 20 mg PO 1000,2200 [facility] Last Admin: 09/25/18 21:36 Dose: 20 mg Sodium Chloride (Sodium Chloride 0.9%) 1,000 mls @ 100 mls/hr IV .Q10H [facility] Last Admin: 09/24/18 20:44 Dose: 100 mls/hr Insulin Human Regular (Humulin R Low) 0 units SC ACHS [facility]; Protocol Last Admin: 09/25/18 21:39 Dose: Not Given Metformin HCl (Glucophage) 500 mg PO BID [facility] Last Admin: 09/25/18 17:19 Dose: 500 mg Ondansetron HCl (Zofran Inj) 4 mg IVP Q6H PRN PRN Reason: Nausea/Vomiting Oxycodone/Acetaminophen (Percocet 5/325 Mg Tab) 1 tab PO Q4H PRN PRN Reason: Pain, moderate (4-7) Stop: 09/28/18 10:52 Sucralfate (Carafate Oral Susp) 1 gm PO 0600,1600 [facility] Last Admin: 09/25/18 17:19 Dose: 1 gm Results - Vital Signs Recent Vital Signs: Last Vital Signs Temp 98.7 F 09/25/18 20:41 Pulse 82 09/25/18 20:41 Resp 18 09/25/18 20:41 BP 132/74 09/25/18 20:41 Pulse Ox 98 09/25/18 18:00 - Labs Result Diagrams: 09/25/18 06:00 09/25/18 06:00 Labs: Laboratory Results - last 24 hr 09/24/18 09/25/18 09/25/18 09:10 06:00 06:00 WBC RBC Hgb Hct MCV MCH MCHC RDW Plt Count MPV Gran % Lymph % (Auto) [place] % (Auto) Eos % (Auto) Baso % (Auto) Gran # Lymph # (Auto) [place] # (Auto) Eos # (Auto) Baso # (Auto) Corrected WBC (Man) Neutrophils % (Manual) Band Neutrophils % Lymphocytes % (Manual) Atypical Lymphs % Monocytes % (Manual) Nucleated RBC % Platelet Evaluation Sodium 139 Potassium 3.5 L Chloride 106 Carbon Dioxide 27 Anion Gap 9 L BUN 8 Creatinine 0.7 Est GFR ( Amer) > 60 Est GFR (Non-Af Amer) > 60 POC Glucose (mg/dL) Random Glucose 150 H Hemoglobin A1c Calcium 8.2 L Iron 104 TIBC 224 L % Saturation 47 Transferrin Ferritin 358.0 Total Bilirubin 0.4 AST 33 ALT 18 Alkaline Phosphatase 77 Total Protein 7.6 Albumin 3.1 Globulin 4.4 Albumin/Globulin Ratio 0.7 L Triglycerides 166 H Cholesterol 158 LDL Cholesterol Direct 119 HDL Cholesterol 18 L Vitamin B12 522 Folate 7.4 Thyroxine (T4) TSH 3rd Generation FSH 3rd Generation 6.1 Luteinizing Hormone 11.4 Prolactin 11.3 Cortisol AM Sample Blood Type O POSITIVE Antibody Screen Negative Crossmatch See Detail BBK History Checked Patient has bt 09/25/18 09/25/18 09/25/18 06:00 06:00 06:00 WBC 6.2 RBC 2.63 L Hgb 7.7 L Hct 23.1 L MCV 87.8 D MCH 29.3 MCHC 33.3 RDW 17.1 H Plt Count 148 MPV 8.6 Gran % 33.3 L Lymph % (Auto) 33.8 [place] % (Auto) 32.4 H Eos % (Auto) 0.3 L Baso % (Auto) 0.2 Gran # 2.06 Lymph # (Auto) 2.1 [place] # (Auto) 2.0 H Eos # (Auto) 0.0 Baso # (Auto) 0.01 Corrected WBC (Man) 5.9 Neutrophils % (Manual) 38 L Band Neutrophils % 2 Lymphocytes % (Manual) 41 H Atypical Lymphs % 2 H Monocytes % (Manual) 17 H Nucleated RBC % 5 Platelet Evaluation Normal Sodium Potassium Chloride Carbon Dioxide Anion Gap BUN Creatinine Est GFR ( Amer) Est GFR (Non-Af Amer) POC Glucose (mg/dL) Random Glucose Hemoglobin A1c 7.8 H Calcium Iron TIBC % Saturation Transferrin 157.80 L Ferritin Total Bilirubin AST ALT Alkaline Phosphatase Total Protein Albumin Globulin Albumin/Globulin Ratio Triglycerides Cholesterol LDL Cholesterol Direct HDL Cholesterol Vitamin B12 Folate Thyroxine (T4) 7.2 TSH 3rd Generation 0.39 L FSH 3rd Generation Luteinizing Hormone Prolactin Cortisol AM Sample Blood Type Antibody Screen Crossmatch BBK History Checked 09/25/18 09/25/18 09/25/18 06:00 08:02 12:07 WBC RBC Hgb Hct MCV MCH MCHC RDW Plt Count MPV Gran % Lymph % (Auto) [place] % (Auto) Eos % (Auto) Baso % (Auto) Gran # Lymph # (Auto) [place] # (Auto) Eos # (Auto) Baso # (Auto) Corrected WBC (Man) Neutrophils % (Manual) Band Neutrophils % Lymphocytes % (Manual) Atypical Lymphs % Monocytes % (Manual) Nucleated RBC % Platelet Evaluation Sodium Potassium Chloride Carbon Dioxide Anion Gap BUN Creatinine Est GFR ( Amer) Est GFR (Non-Af Amer) POC Glucose (mg/dL) 93 99 Random Glucose Hemoglobin A1c Calcium Iron TIBC % Saturation Transferrin Ferritin Total Bilirubin AST ALT Alkaline Phosphatase Total Protein Albumin Globulin Albumin/Globulin Ratio Triglycerides Cholesterol LDL Cholesterol Direct HDL Cholesterol Vitamin B12 Folate Thyroxine (T4) TSH 3rd Generation FSH 3rd Generation Luteinizing Hormone Prolactin Cortisol AM Sample 8.9 Blood Type Antibody Screen Crossmatch BBK History Checked 09/25/18 09/25/18 16:20 21:19 WBC RBC Hgb Hct MCV MCH MCHC RDW Plt Count MPV Gran % Lymph % (Auto) [place] % (Auto) Eos % (Auto) Baso % (Auto) Gran # Lymph # (Auto) [place] # (Auto) Eos # (Auto) Baso # (Auto) Corrected WBC (Man) Neutrophils % (Manual) Band Neutrophils % Lymphocytes % (Manual) Atypical Lymphs % Monocytes % (Manual) Nucleated RBC % Platelet Evaluation Sodium Potassium Chloride Carbon Dioxide Anion Gap BUN Creatinine Est GFR ( Amer) Est GFR (Non-Af Amer) POC Glucose (mg/dL) 91 208 H Random Glucose Hemoglobin A1c Calcium Iron TIBC % Saturation Transferrin Ferritin Total Bilirubin AST ALT Alkaline Phosphatase Total Protein Albumin Globulin Albumin/Globulin Ratio Triglycerides Cholesterol LDL Cholesterol Direct HDL Cholesterol Vitamin B12 Folate Thyroxine (T4) TSH 3rd Generation FSH 3rd Generation Luteinizing Hormone Prolactin Cortisol AM Sample Blood Type Antibody Screen Crossmatch BBK History Checked Attending/Attestation - Attestation I have personally seen and examined this patient.: Yes I have fully participated in the care of the patient.: Yes I have reviewed all pertinent clinical information: Yes Notes (Text): This is an addendum to GI consult report dictated by the GI Fellow. The patient was seen and examined earlier. Medical records, lab studies, imagings were reviewed. Last 24 hours events reviewed. Agreed with the above treatment plan as outlined in GI Fellow 's notes with the addition of the following the patient is reluctant to take bowel preparation Wants to have colonoscopy as an outpatient Status post bone marrow biopsy Contact details were given to the patient to have follow-up in our office to have colonoscopy scheduled this patient has 2 cell line problem both RBC and the platelets Would need a repeat CBC and platelets 1-2 days before the procedure colonoscopy. Patient wants to have this done only as an outpatient Hematology follow-up Follow-up with PCP hematology follow up with the Dr. Pedraza 09/25/18 22:39
[2018-09-25] MEDS ORDERED: Midazolam 2 MG/2 ML VIAL ONE (09:37)
[2018-09-25] MEDS ORDERED: Lidocaine 1% Inj (20ml) ONE (09:38)
[2018-09-25] MEDS ORDERED: Midazolam 2 MG/2 ML VIAL IVP ONE (10:30)
[2018-09-25] MEDS ORDERED: Oxycodone/Acetaminophen 5/325 mg Tab PO PRN (10:51)
[2018-09-25 12:32] LABS: FSH 6.1 mIU/mL; PROLACTIN 11.3 ng/mL (3.0-18.9)
[2018-09-25 12:36] LABS: TRANSFERRIN 157.8 mg/dL (206-381)
[2018-09-25 13:20] LABS: FOLATE 7.4 ng/mL
--- NOTE | 2018-09-25 14:53 | PN ---
DATE: 09/25/2018 ENDO FOLLOWUP NOTE LOCATION: Room 371. SUBJECTIVE: This is a 43-year-old female with known history of type 2 diabetes, hypertension, presenting here with progressive bouts of dizziness and lightheadedness and is now being followed closely for metabolic management. She has a known history of empty sella syndrome, on no medications at this time. She remains clinically euthyroid. She also presented here with marked anemia with a hemoglobin of 6.7 and a repeat level today of 7.7 g/dL. Her chemistries showed a BUN of 8, sodium 139, potassium 3.5, chloride 106, CO2 of 27, glucose 150 and creatinine 0.7. Her hemoglobin A1c is 7.8%. Her prolactin level is 11.3 and her luteinizing hormone is 11.4 and a follicle-stimulating hormone is 6.1. Her T4 is 7.2 with a TSH of 0.89. ASSESSMENT: This is a 43-year-old female with type 2 diabetes with suboptimal metabolic control on metformin therapy with underlying obesity contributing to the increased insulin resistance thereof. Moreover, she has a known history of empty sella syndrome with a normal hormonal profile as reported today. Her prolactin levels and the female hormone levels are within range for her age category at this time. Her thyroid studies are consistent with the so-called acute sick euthyroid syndrome as noted. PLAN OF MANAGEMENT: We will resume and restart her metformin given as 500 mg b.i.d. as ordered. She may need actually a combination therapy for optimal metabolic control of her diabetic condition. Would recommend Januvia, especially with underlying obesity as noted. On the outpatient, we have available this GLP-1 agonist such as Trulicity and medications which can also lower the A1c levels and promote weight loss as noted. This would actually recommend. Angelina Levy MD
--- NOTE | 2018-09-25 15:38 | CT ---
PROCEDURE: CT guided pelvic bone marrow aspiration and biopsy HISTORY: Refractory anemia. Evaluate for myelodysplastic syndrome. PHYSICIAN(S): Ruben Handley MD. TECHNIQUE: The relative risks and indications of the procedure were explained to the patient and consent obtained. The patient was placed prone on the CT scanner and preliminary images through the pelvis obtained. Conscious sedation and monitoring were provided throughout the procedure by a nurse. The right posterior superior iliac spine was selected for biopsy. The skin and soft tissues were anesthetized 1 percent xylocaine. And on control needle was advanced to the right posterior superior iliac spine is position confirmed with CT. The needle was advanced through the cortex. Three bone marrow aspirations were attempted in different locations. All 3 were dry. Two long core biopsies of the right ilium were obtained. The patient tolerated the procedure well. IMPRESSION: 1. CT-guided pelvic bone marrow aspiration and biopsy as described above.
--- NOTE | 2018-09-25 18:10 | PN ---
DATE: 09/25/2018 This is [facility]'s [place] [facility] visit on the medical floor. For Dr. Riggs. SUBJECTIVE: The patient is a 43-year-old female status post bone marrow biopsy earlier today by Dr. Ruben Handley with results to be reviewed upon return. The patient was transfused 2 units of packed red blood cells since admission with a hemoglobin of 6.7. The repeat lab today for hemoglobin of 7.7, we will transfuse an additional unit of packed cells and monitor her clinically. The patient appears in no acute distress. Denies any pain. Denies melena, bleeding, hematochezia. However, now she does admit to weight loss as described by of approximately 45 pounds in the past 2 months. At present, she weighs 226 pounds. The patient also at this time refuses any gastrointestinal workup that would include preparation as she had an untold reaction with GoLYTELY prep on an attempted colonoscopy in the past. At the conversation with Dr. Ramon, we will advance the patient's diet with further testing as indicated. OBJECTIVE/PHYSICAL EXAMINATION: VITAL SIGNS: Temperature 98, pulse 76, respirations 18, blood pressure 107/57, pulse ox 99%. HEENT: Unremarkable. NECK: Supple. HEART: Regular rate. LUNGS: Clear. ABDOMEN: Obese, soft, nontender. EXTREMITIES: No edema. SKIN: Warm and dry. NEUROLOGIC: Awake and alert. LABORATORY DATA: The patient's labs were done; white blood cell count of 6.2, hemoglobin 7.7, status post 2 units of packed cells for hemoglobin of 6.7 yesterday, hematocrit of 23.1, platelet count of 148,000. The metabolic panel done this morning showing a potassium of 3.5, hemoglobin A1c of 7.8, iron percent saturation is 47, TSH is 0.3. ASSESSMENT: The assessment for this patient is that of severe symptomatic anemia, status post transfusion, hypertension, diabetes mellitus, hypokalemia, unexplained weight loss, syndrome, obesity. PLAN: Plan for this patient after conversation with Dr. Riggs is to transfuse packed red blood cells today with further testing. Recommended, however, the patient refuses them at this time with consult with Dr. Chen, endocrinology appreciated with flow cytometric analysis to be ordered for to rule out leukemia. We will advance the patient's diet after conversation with Dr. Ramon carbohydrate. This is a complex patient with a comprehensive medically necessary and appropriate visit carried out in excess of 30 minutes with the patient's questions answered to have her satisfaction. Ricky Montes MD (Delete this signature block when dictator is a preceptor.)
[2018-09-25] MEDS ORDERED: Sucralfate 1 gm/10 ml Oral Susp UD PO ONE (20:38)
--- NOTE | 2018-09-26 02:51 | PN ---
DATE: 09/25/2018 SUBJECTIVE: The patient was seen and examined at bedside on 09/25/2018, looking comfortable, feeling fatigued and tired. No fevers. No chills. No hematuria. No hematochezia. No headache, no dizziness. No chest pain. No palpitation. PHYSICAL EXAMINATION: VITAL SIGNS: Temperature 98, pulse 76, respiratory rate 18, blood pressure 107/57, pulse oximetry 99%. HEENT: Head normocephalic, atraumatic. Eyes, PERRLA. Extraocular muscles intact. Conjunctivae clear. Nose patent. Mucous membrane moist. NECK: Supple. No carotid bruit. No JVD or thyromegaly. CHEST: Bilaterally symmetrical. HEART: S1, S2 positive. LUNGS: Clear to auscultation. ABDOMEN: Soft. Bowel sounds positive. No organomegaly. EXTREMITIES: No edema. No cyanosis. NEUROLOGIC: The patient is awake, alert, follows simple commands. LABORATORY DATA: White blood cells 6.3, hemoglobin 7.7 status post two units of packed RBCs; on admission, hemoglobin was 6.7. Potassium 3.5. Hemoglobin A1c is 7.8. TSH 0.3. ASSESSMENT AND PLAN: Ms. Ignacia Costa is a 43 years old female, came with anemia, symptomatic, status post bone marrow biopsy today by Dr. Ruben Handley, results are pending. The patient got two units of packed RBC since admission with hemoglobin 6.7. We will get third unit of packed RBC. The patient does not look like in acute distress. No melena. According to the patient, she lost weight. The patient refused GI workup this admission including preparation as she had an untold reaction with GoLYTELY preparation on the attempting colonoscopy in the past. According to Dr. Ramon, we can advance the diet and further GI workup can be done as outpatient. History of diabetes mellitus, uncontrolled hypokalemia, unexplained weight loss. Bone marrow biopsy done, results are pending. We will get the third unit of packed RBC. GI workup as outpatient , Repeat labs. We will follow. Mary Pollard MD [facility]
[2018-09-26] MEDS: Sodium Chloride 0.9% 1,000 ML IV SCH (05:20)
[2018-09-26] MEDS: Sucralfate 1 gm/10 ml Oral Susp UD PO SCH ×2 (05:20→16:35)
[2018-09-26 07:05] LABS: BASO # 0.01 K/mm3 (0.0-2.0); BASO % 0.2 % (0.0-3.0); EOS % 0.2 % (1.5-5.0); GRAN % 21.1 % (50.0-68.0); LYMPH # 2.4 (1.2-3.4); LYMPH % 51.2 % (22.0-35.0); MEAN CELL VOLUME 86.8 fl (80.0-105.0); MEAN CORPUSCULAR HEMOGLOBIN 28.5 pg (25.0-35.0); MEAN CORPUSCULAR HGB CONC 32.8 g/dl (31.0-37.0); MEAN PLATELET VOLUME 8.4 fl (7.0-11.0); MONO # 1.3 (0.1-0.6); MONO % 27.3 % (1.0-6.0); RBC 2.81 10^6/uL (3.5-6.1); RED CELL DISTRIBUTION WIDTH 17.2 % (11.5-14.5); WHITE BLOOD COUNT 4.7 10^3/uL (4.5-11.0)
[2018-09-26 07:14] LABS: INR 1.05; PARTIAL THROMBOPLASTIN TIME 28.4 Seconds (25.1-36.5); PROTHROMBIN TIME 12.1 SECONDS (9.4-12.5)
[2018-09-26 07:20] LABS: ALB/GLOB RATIO 0.7 (1.1-1.8); ALT/SGPT 26 U/L (7-56); AST/SGOT 20 U/L (14-36); BLOOD UREA NITROGEN 10 mg/dL (7-21); GFR NON-AFRICAN AMERICAN > 60
[2018-09-26] MEDS: Insulin Reg-LOW-Coverage SC SCH ×3 (08:00→16:29)
--- NOTE | 2018-09-26 13:47 | PN ---
DATE: 09/26/2018 ENDOCRINOLOGY FOLLOWUP NOTE LOCATION: Room 371. SUBJECTIVE: This is a 43-year-old female presenting here with generalized body weakness and severe bouts of dizziness and lightheadedness with supervening marked anemia as noted thereof. She is also being followed closely for metabolic management of known history of type 2 diabetes on metformin therapy and also a known history of empty sella syndrome. Her comprehensive hormonal profile done showed optimal hormonal levels as noted. Her glucose values have ranged from 91-208 mg/dL. LABORATORY DATA: Her chemistry showed a BUN of 10, sodium 139, potassium 3.7, chloride 106, CO2 of 27, glucose 99 and creatinine 0.7. Her serum prolactin level was 11.3 with a serum cortisol level of 8.9 and a TSH of 0.39 and T4 of 7.2 consistent with acute sick euthyroid syndrome. ASSESSMENT AND PLAN: So at this time there is no indication for any kind of hormonal therapy as noted and indicated. We will continue the metformin given as 500 mg b.i.d. We will also all continue the hematological workup and management as noted. We will obtain serial chemistries and supplement accordingly as needed. We will follow. Angelina Levy MD
--- NOTE | 2018-09-26 13:57 | CP.PCM.PN ---
<HilarySarahdesmond - Last Filed: 09/26/18 13:58> Subjective - Date & Time of Evaluation Date of Evaluation: 09/26/18 Time of Evaluation: 11:45 - Subjective Subjective: PGY-4 GI Fellow Prog Note Pt ambulating in room when seen this AM. States that she is doing well and eager for possible DC. No abd pain nor signs of bleeding. 5 point ROS negative other than stated above Objective - Vital Signs/Intake and Output Vital Signs (last 24 hours): Temp Pulse Resp BP Pulse Ox 97.9 F 82 18 156/79 H 99 09/26/18 06:00 09/26/18 10:00 09/26/18 06:00 09/26/18 06:00 09/26/18 06:00 Intake and Output: 09/26/18 09/26/18 06:59 18:59 Intake Total 1760 Balance 1760 - Medications Medications: Current Medications Acetaminophen (Tylenol 325mg Tab) 650 mg PO Q6H PRN PRN Reason: Pain, Mild (1-3) Famotidine (Pepcid) 20 mg PO 1000,2200 [facility] Last Admin: 09/26/18 11:06 Dose: 20 mg Sodium Chloride (Sodium Chloride 0.9%) 1,000 mls @ 100 mls/hr IV .Q10H [facility] Last Admin: 09/26/18 05:20 Dose: 100 mls/hr Insulin Human Regular (Humulin R Low) 0 units SC ACHS [facility]; Protocol Last Admin: 09/26/18 11:57 Dose: Not Given Metformin HCl (Glucophage) 500 mg PO BID [facility] Last Admin: 09/26/18 11:06 Dose: 500 mg Ondansetron HCl (Zofran Inj) 4 mg IVP Q6H PRN PRN Reason: Nausea/Vomiting Oxycodone/Acetaminophen (Percocet 5/325 Mg Tab) 1 tab PO Q4H PRN PRN Reason: Pain, moderate (4-7) Stop: 09/28/18 10:52 Sucralfate (Carafate Oral Susp) 1 gm PO 0600,1600 [facility] Last Admin: 09/26/18 05:20 Dose: 1 gm - Labs Labs: 09/26/18 06:00 09/26/18 06:00 PT 12.1 SECONDS (9.4-12.5) 09/26/18 06:00 INR 1.05 09/26/18 06:00 APTT 28.4 Seconds (25.1-36.5) 09/26/18 06:00 - Constitutional Appears: Well, No Acute Distress - Head Exam Head Exam: ATRAUMATIC, NORMAL INSPECTION - Eye Exam Eye Exam: EOMI. absent: Scleral icterus - Respiratory Exam Respiratory Exam: NORMAL BREATHING PATTERN. absent: Accessory Muscle Use, Respiratory Distress - GI/Abdominal Exam GI & Abdominal Exam: Soft, Normal Bowel Sounds. absent: Bruit, Distended, Firm, Guarding, Rigid, Tenderness, Mass (though exam limited by body habitus), Organomegaly, Pulsatile Mass, Rebound Assessment and Plan - Assessment and Plan (Free Text) Assessment: 43yo female with PMHx significant for HTN, migraines, obesity, chronic anemia and empty sella syndrome who presented to the ED with complaint of dizziness and fatigue -Anemia -Unintentional weight loss -Dysguesia -Empty sella syndrome Plan: -Unclear etiology of anemia at this juncture - EGD and biopsies reviewed without significant finding -Colonoscopy aborted 2/2 poor prep; patient currently refusing repeat procedure -Agrees to follow up outpatient with heme/onc and then decide to proceed with colonoscopy as outpatient -Transfusion support as necessary -Awaiting endocrinology work up - possible relationship between empty sella syndrome and anemia; appreciate input -Hematology notes from prior admission reviewed - peripheral smear unremarkable, lab work to be reviewed by their service --- F/u Bone Marrow Biopsy results Pt discussed with Dr. Ramon; please see attestation for further recs/changes Bhavik Richard, PGY-4 <Carlos Manuel Ramon V - Last Filed: 09/26/18 23:07> Objective - Vital Signs/Intake and Output Vital Signs (last 24 hours): Temp Pulse Resp BP Pulse Ox 98.5 F 81 18 128/72 95 09/26/18 19:32 09/26/18 19:32 09/26/18 19:32 09/26/18 19:32 09/26/18 16:55 Intake and Output: 09/26/18 09/27/18 18:59 06:59 Intake Total 1440 325 Balance 1440 325 - Medications Medications: Current Medications Acetaminophen (Tylenol 325mg Tab) 650 mg PO Q6H PRN PRN Reason: Pain, Mild (1-3) Acetaminophen (Tylenol 325mg Tab) 650 mg PO Q4H PRN PRN Reason: Pain, Mild (1-3) Famotidine (Pepcid) 20 mg PO 1000,2200 [facility] Last Admin: 09/26/18 21:46 Dose: 20 mg Sodium Chloride (Sodium Chloride 0.9%) 1,000 mls @ 50 mls/hr IV .Q20H [facility] Last Admin: 09/26/18 16:20 Dose: 50 mls/hr Insulin Human Regular (Humulin R Low) 0 units SC ACHS [facility]; Protocol Last Admin: 09/26/18 16:29 Dose: Not Given Metformin HCl (Glucophage) 500 mg PO BID [facility] Last Admin: 09/26/18 18:05 Dose: 500 mg Ondansetron HCl (Zofran Inj) 4 mg IVP Q6H PRN PRN Reason: Nausea/Vomiting Oxycodone/Acetaminophen (Percocet 5/325 Mg Tab) 1 tab PO Q8H PRN PRN Reason: Pain, severe (8-10) Stop: 09/28/18 10:52 Sucralfate (Carafate Oral Susp) 1 gm PO 0600,1600 [facility] Last Admin: 09/26/18 16:35 Dose: 1 gm Tramadol HCl (Ultram) 50 mg PO TID PRN PRN Reason: Pain, moderate (4-7) Last Admin: 09/26/18 15:24 Dose: 50 mg - Labs Labs: 09/26/18 06:00 09/26/18 06:00 PT 12.1 SECONDS (9.4-12.5) 09/26/18 06:00 INR 1.05 09/26/18 06:00 APTT 28.4 Seconds (25.1-36.5) 09/26/18 06:00 Attending/Attestation - Attestation I have personally seen and examined this patient.: Yes I have fully participated in the care of the patient.: Yes I have reviewed all pertinent clinical information, including history, physical exam and plan: Yes Notes (Text): p 09/26/18 23:07
[2018-09-26] MEDS ORDERED: Oxycodone/Acetaminophen 5/325 mg Tab PO PRN (14:15)
[2018-09-26] MEDS ORDERED: Sodium Chloride 0.9% 1,000 ML IV SCH (14:15)
[2018-09-26 16:56] VITALS: O2SAT 95
--- NOTE | 2018-09-26 20:24 | PN ---
DATE: 09/26/2018 This is [facility] visit on the medical floor. For Dr. Riggs. SUBJECTIVE: The patient is a 43-year-old female, seen sitting up in bed, reporting that she has some discomfort to the site of the bone marrow biopsy with neck discomfort after sleeping uncomfortably last night. Otherwise, she reports her appetite is good and denies any further dizziness. The patient was admitted for a hemoglobin of 6.7. After 3 units of packed red blood cells transfusion, her hemoglobin is now 8 with bone marrow results pending along with flow cytometric analysis. The patient refuses any gastrointestinal evaluation at this time as her EGD showed gastritis with her colonoscopy unable to be done due to poor preparation. Otherwise, she is resting comfortably with analgesics to be given for her discomfort, along with moist heat, Micro Temp for her neck discomfort. PHYSICAL EXAMINATION VITAL SIGNS: Temperature 97.9, pulse 82, respirations 18, blood pressure 156/79, pulse ox 99%. HEENT: Unremarkable. NECK: Supple with minimal tenderness to gentle palpation. HEART: Regular rate. LUNGS: Clear. ABDOMEN: Obese, soft and nontender. EXTREMITIES: No edema. SKIN: Warm and dry. NEUROLOGIC: Awake and alert. LABORATORY DATA: The patient's labs were done. White blood cell count 4.7; hemoglobin 8, improved from 6.7 on admission two days prior; hematocrit 24.4; platelet count of 134,000. The chem metabolic panel showed a calcium of 8 with an otherwise normal metabolic panel. ASSESSMENT: The assessment for this patient is that of symptomatic anemia, status post transfusion; unexplained weight loss; hypertension; diabetes mellitus; obesity; empty sella syndrome; neck discomfort and myalgia. PLAN: Plan for this patient, after conversation with Dr. Riggs, is to discontinue her telemetry. We will transfuse 1 additional unit of packed red blood cells today with Tylenol as needed for mild pain, Tramadol as needed for moderate pain and Percocet as per Dr. Ruben Handley for more significant pain from her bone marrow biopsy site. We will also give Micro Temp/moist heat to her neck as indicated with monitoring the patient clinically. This is a complex patient with a comprehensive medically necessary and appropriate visit carried out in excess of 20 minutes with the patient's questions answered to her satisfaction. Should the patient improve clinically with her lab values, there is a consideration for discharge home tomorrow, will follow up as an outpatient in the office, so she may enjoy the holidays at home with her family if possible. Ricky Montes MD [facility] # [id number]
[2018-09-27] MEDS: Sucralfate 1 gm/10 ml Oral Susp UD PO SCH (05:40)
[2018-09-27 07:12] LABS: BASO # 0.01 K/mm3 (0.0-2.0); BASO % 0.2 % (0.0-3.0); EOS % 0.2 % (1.5-5.0); GRAN # 0.94 (1.4-6.5); GRAN % 19.4 % (50.0-68.0); HEMOGLOBIN 8.9 g/dL (12.0-16.0); LYMPH # 2.4 (1.2-3.4); LYMPH % 48.6 % (22.0-35.0); MEAN CELL VOLUME 87.2 fl (80.0-105.0); MEAN CORPUSCULAR HEMOGLOBIN 29.2 pg (25.0-35.0); MEAN CORPUSCULAR HGB CONC 33.5 g/dl (31.0-37.0); MEAN PLATELET VOLUME 8.3 fl (7.0-11.0); MONO # 1.5 (0.1-0.6); MONO % 31.6 % (1.0-6.0); RBC 3.05 10^6/uL (3.5-6.1); RED CELL DISTRIBUTION WIDTH 16.6 % (11.5-14.5); WHITE BLOOD COUNT 4.8 10^3/uL (4.5-11.0)
[2018-09-27 07:14] VITALS: BP 144/83; PULSE 77; RESP 20; TEMP 98
[2018-09-27 07:23] LABS: ALB/GLOB RATIO 0.7 (1.1-1.8); ALBUMIN 2.9 g/dL (3.0-4.8); ALT/SGPT 22 U/L (7-56); AST/SGOT 20 U/L (14-36); BLOOD UREA NITROGEN 8 mg/dL (7-21); CALCIUM 7.8 mg/dL (8.4-10.5); GFR NON-AFRICAN AMERICAN > 60
[2018-09-27] MEDS: Insulin Reg-LOW-Coverage SC SCH (08:18)
[2018-09-27] MEDS ORDERED: Potassium Chloride 20 mEq ER Tab PO ONE (09:49)
--- NOTE | 2018-09-27 14:05 | PN ---
ENDOCRINOLOGY FOLLOWUP NOTE DATE: 09/27/2018 LOCATION: Room 371. SUBJECTIVE: This is a 43-year-old female admitted with generalized body weakness and progressive dizziness and lightheadedness related to marked anemia and has since then received packed RBC transfusion with improvement of her blood count. Latest hemoglobin of which is 8.9 gm/dL today as noted. She also had a comprehensive hormonal workup at this time for a history of empty sella syndrome. Her latest chemistry showed a BUN of 8, sodium 138, potassium 3.3, chloride 107, CO2 of 28, glucose 110 and creatinine 0.7. Her calcium level is 7.8 with an albumin level of 2.9 and a corrected calcium of 8.9 mg/dL. Her prolactin level was reported as 11.3 with a cortisol value of 8.9 and a T4 of 7.2 with a TSH of 0.39 indicative of acute sick euthyroid syndrome. So there is no evidence of any elevated prolactin values at this time and her female hormones also within optimal range as noted. There is no evidence also now of any pituitary hypo or hyperfunction as noted metabolically. We will obtain serial chemistries and supplement accordingly needed. We will follow. Angelina Levy MD
--- NOTE | 2018-09-28 09:27 | PN ---
DATE: 09/26/2018 SUBJECTIVE: The patient is a 43-year-old female. The patient was seen and examined at the bedside on 09/26/2018. Looking comfortable. No fever. No chills. No hematuria or hematochezia. No swelling of the legs. No chest pain. No palpitation. She got a blood transfusion. PHYSICAL EXAMINATION: VITAL SIGNS: Temperature 97.9, pulse 82, respiratory rate 18, blood pressure 166/71, and pulse oximetry 99. HEENT: Head, normocephalic and atraumatic. Eyes, PERRLA. Extraocular muscles intact. Conjunctivae clear. Nose patent. Mucous membrane moist. NECK: Supple. No carotid bruit. No JVD or thyromegaly. CHEST: Bilaterally symmetrical. HEART: S1, S2 positive. LUNGS: Clear to auscultation. ABDOMEN: Soft. Bowel sounds positive. No organomegaly. EXTREMITIES: No edema. No cyanosis. NEUROLOGIC: The patient is awake, alert, follows simple commands. MEDICATIONS: Tylenol, Pepcid, NS, insulin, metformin, Zofran, oxycodone, and sucralfate. LABORATORY DATA: White blood cell 4.7, hemoglobin 8.2, hematocrit 24.4, platelets 134. Sodium 139, potassium 3.7, BUN 10, creatinine 0.7, glucose 99. ASSESSMENT AND PLAN: Ms. Ignacia Costa is a 43-year-old female with anemia, hypertension, migraine, history of chronic anemia, empty sella syndrome. The patient had h/o anemia , blood transfusion was done. After that, she came in my office again with the same symptoms. I sent her to the hospital. She went for colonoscopy last time by [facility] . Empty sella syndrome. Underlying etiology of this anemia is just not clear. Colonoscopy was done last time, but preparation was poor. Big Data Engineer is on the case. Bone marrow biopsy was done. Results are pending. Seen by the loan interviewer mortgage. Gastrointestinal and deep venous thrombosis prophylaxis. Repeat laboratories. We will follow up. Mary Pollard MD [facility]
== END 2018-09-27 11:35 | disposition home or self-care (01) | DRG 842 ==
LOC: ED 07:44 → ERH 09:05 → 3RSO 19:43
PROVIDERS: ADMIT Internal Medicine; ATTEND Internal Medicine
PROC: 30233N1 Transfusion of Nonautologous Red Blood Cells into Peripheral Vein, Percutaneous Approach (ICD-10-PCS; 2018-09-24)
PROC: 07DR3ZX Extraction of Iliac Bone Marrow, Percutaneous Approach, Diagnostic (ICD-10-PCS; principal; 2018-09-25 09:00)
DX: C93.10 Chronic myelomonocytic leukemia not having achieved remission (principal); D64.9 Anemia, unspecified; I10 Essential (primary) hypertension; E11.65 Type 2 diabetes mellitus with hyperglycemia; E07.81 Sick-euthyroid syndrome; E28.2 Polycystic ovarian syndrome; E66.9 Obesity, unspecified; E78.5 Hyperlipidemia, unspecified; F17.210 Nicotine dependence, cigarettes, uncomplicated; G43.909 Migraine, unspecified, not intractable, without status migrainosus; Z82.49 Family history of ischemic heart disease and other diseases of the circulatory system; Z98.891 History of uterine scar from previous surgery

== ENCOUNTER 2018-10-15 11:33 | Inpatient (IN) | payer BC ==
[2018-10-15 11:49] VITALS: BMI 36.9
--- NOTE | 2018-10-15 11:59 | ED PDOC ---
Arrival/HPI - General Chief Complaint: Dizziness/Lightheaded Time Seen by Provider: 10/15/18 11:36 Historian: Patient - History of Present Illness Narrative History of Present Illness (Text): 10/15/18 11:58 43 year old patient, with past medical history of hypertension, anemia, diabetes, empty cellar syndrome, many years ago, and cml leukemia, who presents to the emergency department via triage complaining of lightheadedness since this morning. Patient states she will visit leukemia expert at [place] next week to follow up regarding her diagnosis. Patient states she fainted at her doctor's office yesterday and was brought home by a family member, when she felt dizziness again this morning. Patient reports associated vomiting, shortness of breath, and chest pain which she states is typical of her anemia. Patient denies any fevers, chills, headache, cough, abdominal pain, nausea, diarrhea, melena, back pain, neck pain, or any other complaints. PMD: Dr. Mcallister Time/Duration: Other (this morning ) Symptom Onset: Gradual Symptom Course: Unchanged Activities at Onset: Light Context: Home Past Medical History - Provider Review Nursing Documentation Reviewed: Yes - Infectious Disease Hx of Infectious Diseases: None - Cardiac Hx Cardiac Disorders: Yes (tachycardia, cp) Hx Hypertension: Yes - Pulmonary Hx Respiratory Disorders: Yes (SMOKES 2 CIGARETTES A DAY.) - Neurological Hx Neurological Disorder: Yes Other/Comment: empty sella syndrome dx 1-2 months ago - HEENT Hx HEENT Disorder: No - Renal Hx Renal Disorder: No - Endocrine/Metabolic Hx Endocrine Disorders: Yes Hx Diabetes Mellitus Type 2: Yes - Hematological/Oncological Hx Blood Disorders: Yes Hx Anemia: Yes (09-03-18 BLOOD TRANSFUSION) Hx Leukemia: Yes Other/Comment: CML - Integumentary Hx Dermatological Disorder: No - Musculoskeletal/Rheumatological Hx Musculoskeletal Disorders: Yes (r wrist sprain 12/2011) Hx Falls: No - Gastrointestinal Hx Gastrointestinal Disorders: Yes (obese) - Genitourinary/Gynecological Hx Genitourinary Disorders: Yes (C SECTION X 1 20 yrs ago) - Psychiatric Hx Psychophysiologic Disorder: No Hx Substance Use: No - Surgical History Hx Section: Yes - Anesthesia Hx Anesthesia: Yes Hx Anesthesia Reactions: No Hx Malignant Hyperthermia: No Family/Social History - Physician Review Nursing Documentation Reviewed: Yes Family/Social History: No Known Family HX Smoking Status: Former Smoker Hx Alcohol Use: No Hx Substance Use: No Allergies/Home Meds Allergies/Adverse Reactions: Allergies shrimp Allergy (Verified 09/24/18 07:58) ANAPHYLAXIS Home Medications: Home Meds Medication Instructions Recorded Confirmed Candesartan Cilexetil [Atacand] 16 mg PO DAILY 09/03/18 09/24/18 Ascorbic Acid [Vitamin C 500 mg 500 mg PO DAILY 09/24/18 09/24/18 Tab] Cyanocobalamin (Vitamin B-12) 1,000 mcg PO DAILY 09/24/18 09/24/18 [Vitamin B-12] Ferrous Sulfate [Ferosul] 325 mg PO DAILY 09/24/18 09/24/18 metFORMIN [glucOPHAGE] 500 mg PO BID 09/24/18 09/24/18 Review of Systems - Physician Review All systems were reviewed & negative as marked: Yes - Review of Systems Respiratory: SOB Gastrointestinal: Vomiting. absent: Stool Changes, Nausea Neurological: Dizziness Physical Exam - Physical Exam Narrative Physical Exam (Text): Constitutional: No acute distress. Head: Normocephalic. Atraumatic. Eyes: pale conjuctiva ENT: Moist mucous membranes. Neck: Supple. Cardiovascular: tachycardic Chest: No tenderness. Respiratory: Clear to auscultation bilaterally. GI: Soft. Nontender. Nondistended. Back: No CVA tenderness. Musculoskeletal: No tenderness or swelling of extremities. Skin: No rash. Neurologic: Alert, no focal deficit. Vital Signs Reviewed: Yes Vital Signs Temp Pulse Resp BP Pulse Ox 10/15/18 11:42 97.6 F 124 H 20 121/70 100 Temperature: Afebrile Blood Pressure: Normal Pulse: Regular Respiratory Rate: Normal Appearance: Positive for: Well-Appearing, Non-Toxic, Comfortable Medical Decision Making ED Course and Treatment: 10/15/18 12:16 Impression: 43 year old female presents to emergency department complaining of lightheadedness since this morning. Plan: -- Blood Bank -- Labs -- EKG -- Reassess and disposition Progress Notes: 10/15/18 12:18 EKG: Ordered, reviewed, and independently interpreted the EKG. Rate : 110 BPM Rhythm : NSR Interpretation : No ST-segment elevations Chest X-ray no acute disease. Acutely anemic. Will require transfusion. Dr. Pollard accepts patient to her service. - Scribe Statement The provider has reviewed the documentation as recorded by the Scribe Dixie Grubbs All medical record entries made by the Scribe were at my direction and personally dictated by me. I have reviewed the chart and agree that the record accurately reflects my personal performance of the history, physical exam, medical decision making, and the department course for this patient. I have also personally directed, reviewed, and agree with the discharge instructions and disposition. Disposition/Present on Arrival - Present on Arrival Any Indicators Present on Arrival: No History of DVT/PE: No History of Uncontrolled Diabetes: No Urinary Catheter: No History of Decub. Ulcer: No History Surgical Site Infection Following: None - Disposition Have Diagnosis and Disposition been Completed?: Yes Diagnosis: Symptomatic anemia Disposition: HOSPITALIZED Disposition Time: 13:40 Patient Plan: Admission Condition: FAIR Forms: [employer] (Mexican)
[2018-10-15 13:04] LABS: BASO # 0.01 K/mm3 (0.0-2.0); BASO % 0.2 % (0.0-3.0); EOS % 0.2 % (1.5-5.0); GRAN # 1.97 (1.4-6.5); GRAN % 37.9 % (50.0-68.0); HEMOGLOBIN 7.7 g/dL (12.0-16.0); LYMPH # 1.8 (1.2-3.4); LYMPH % 35.3 % (22.0-35.0); MEAN CELL VOLUME 88.9 fl (80.0-105.0); MEAN CORPUSCULAR HEMOGLOBIN 29.4 pg (25.0-35.0); MEAN PLATELET VOLUME 8.3 fl (7.0-11.0); MONO # 1.4 (0.1-0.6); MONO % 26.4 % (1.0-6.0); PLATELET COUNT 218 10^3/uL (120.0-450.0); RBC 2.62 10^6/uL (3.5-6.1); RED CELL DISTRIBUTION WIDTH 16.5 % (11.5-14.5); WHITE BLOOD COUNT 5.2 10^3/uL (4.5-11.0)
[2018-10-15 13:09] LABS: INR 1.19; PARTIAL THROMBOPLASTIN TIME 30.6 Seconds (25.1-36.5); PROTHROMBIN TIME 13.7 SECONDS (9.4-12.5)
[2018-10-15 13:11] LABS: ALB/GLOB RATIO 0.7 (1.1-1.8); ALBUMIN 3.7 g/dL (3.0-4.8); ALT/SGPT 17 U/L (7-56); AST/SGOT 34 U/L (14-36); BLOOD UREA NITROGEN 9 mg/dL (7-21); CALCIUM 9.2 mg/dL (8.4-10.5); GFR NON-AFRICAN AMERICAN > 60
[2018-10-15 13:30] LABS: ATYPICAL LYMPHOCYTE 3 % (0.0-0.0); LYMPHOCYTE 39 % (22.0-35.0); MONOCYTE 18 % (1.0-6.0); NEUTROPHIL 40 % (50.0-70.0)
[2018-10-15] MEDS ORDERED: Pneumococcal 23-Valent Vaccine IM ONE (16:00)
[2018-10-15] MEDS ORDERED: Influenza Vaccine 60 mcg/0.5 mL SYR (4YR UP) IM ONE (16:00)
[2018-10-15] MEDS ORDERED: DiphenhydrAMINE 50 mg/ml Inj IVP ONE (17:42)
--- NOTE | 2018-10-15 20:23 | CARD ---
APPROVED REPORT Date of service: 10/15/2018 EKG Measurement Heart [id number] <Conclusion> Sinus tachycardia Minimal voltage criteria for LVH, may be normal variant Cannot rule out Anterior infarct, age undetermined Abnormal ECG
--- NOTE | 2018-10-16 00:04 | CON ---
DATE: 10/15/2018 HEMATOLOGY ONCOLOGY CONSULTATION HISTORY OF PRESENT ILLNESS: This patient is known to me from prior admissions. This is a 43-year-old female with past medical history of hypertension, diabetes, empty sella syndrome, C section many years ago, and recently in 09/2018 presented to the hospital with progressive anemia requiring multiple units of blood which prompted the investigation for the patient including EGD, colonoscopy, and bone marrow aspiration biopsy. Bone aspiration biopsy done on 09/24/2018 was consistent with chronic myelomonocytic leukemia. Patient at that point in time was seen in the office. Reports were explained to her and arrangements were made to see the at [facility] for evaluation and treatment either an autologous or an allogeneic transplant with a young person that will be the best way for possible cure. The patient was supposed to be set up to [facility], when she fainted at the doctor's office yesterday and was brought home by family members and she felt very dizzy this morning. The patient reports associated vomiting, shortness of breath, and chest pain which she states is typical of anemia. Denies any fevers, chills, headache, cough, abdominal pain, nausea, diarrhea, melena, back pain, neck pain, or any other complaints. REVIEW OF SYSTEMS: A 12-system review of system was negative except for what is mentioned in the HPI. HOME MEDICATIONS: Include Atacand 16 mg daily, ascorbic acid 500 mg tablet one daily, vitamin B12 at 1000 mcg p.o. daily, ferrous sulfate 325 mg p.o. daily, and metformin 500 mg p.o. b.i.d. ALLERGIES: THE PATIENT IS ALLERGIC TO SHRIMP. PHYSICAL EXAMINATION: VITAL SIGNS: Blood pressure is 121/70, pulse is , T max is 97.6, pulse ox is 100%. HEENT: Head is normocephalic and atraumatic. Conjunctivae pale. Sclerae is anicteric. Pupils are equally reactive to light and accommodation. Examination of oropharynx reveals no oropharyngeal lesions. Tongue is moist. No ulcerations are noted. NECK: Supple. There is no adenopathy. CARDIOPULMONARY: Reveals S1 and S2 to be normal. No gallop or murmur is heard. ABDOMEN: Soft and nontender. Bowel sounds are present. EXTREMITIES: Reveals no cyanosis, clubbing, or edema. NEUROLOGIC: Reveals higher functions to be normal. No focal deficits are noted. ASSESSMENT, NOTES, AND PLAN: The patient again had worsening anemia in the presence of newly diagnosed chronic myelomonocytic leukemia, awaiting his review by the transplant team at [facility] and to decide on which direction to go as far as treatment or therapy is concerned. Based on the blood work, the patient will require transfusion. The patient is going to be admitted and will get 2 units of blood. Routine post exam instructions have been given to the patient. Post transfusion, CBC will be drawn and we will make further decisions based on the CBC. Time spent with the patient was greater than 45 minutes. Please make a note that this is a complex patient with multiple comorbid medical issues. Katharina Riggs MD
--- NOTE | 2018-10-16 03:23 | HP ---
DATE OF EXAM: 10/15/2018 The patient was seen and examined at the bedside on 10/15/2018. CHIEF COMPLAINT: Dizziness, lightheadedness. HISTORY OF PRESENT ILLNESS: Ms. Ignacia Costa is a 43-year-old, my private patient with past medical history of hypertension, diabetes, empty sella syndrome, , history of CML leukemia, history of anemia, multiple times blood transfusion, bone marrow biopsy, came to the emergency department via aide complaining of lightheadedness since this morning. The patient states that she will be leukemia expert at [place] next week to follow up regarding her diagnosis. The patient states that she fainted at her doctor's office yesterday and was brought home by the family member when she felt dizzy. Again, this morning, the patient reports associated with vomiting, shortness of breath and chest pain, which she states is typical for her anemia. She has so many times anemia, now she knows the signs of symptomatic anemia. No fever. No chills. We admitted the patient, put consult with the patient's oncologist. PAST MEDICAL HISTORY: As above, hypertension; diabetes mellitus; empty sella syndrome; section; CML; anemia, status post blood transfusion; history of tachycardia; history of syncopal attack. FAMILY HISTORY: Father and mother, noncontributory. HABITS: Smoking 2 cigarettes per day. Alcohol, no. Substance abuse, no. ALLERGIES: THE PATIENT IS ALLERGIC WITH SHRIMP. HOME MEDICATIONS: Atacand, ascorbic acid, cyanocobalamin, ferrous sulfate, metformin. REVIEW OF SYSTEMS: The patient was seen and examined at the bedside, looking comfortable except that still having dizziness, sometimes having palpitation. No fever. No chills. No hematuria or hematochezia. No headache or dizziness. PHYSICAL EXAMINATION: VITAL SIGNS: Temperature 97.6, pulse 124, respiratory rate 20, blood pressure 120/70, pulse oximetry 100. HEENT: Head is normocephalic, atraumatic. Eyes: PERRLA. Extraocular muscles are intact. Conjunctivae clear. Nose patent. Mucous membranes moist. NECK: Supple. No carotid bruit. No JVD or thyromegaly. CHEST: Bilaterally symmetrical. HEART: S1 and S2, positive. LUNGS: Clear to auscultation. ABDOMEN: Soft. Bowel sounds present. No organomegaly. EXTREMITIES: No edema. No cyanosis. NEUROLOGIC: The patient is awake and alert. Moving all 4 extremities. No focal deficit. LABORATORY DATA: White blood cells 5.2, hemoglobin 7.7, hematocrit 23.3, platelets 218. Sodium 140, potassium 3.8, BUN 9, creatinine 0.8, glucose 153. ASSESSMENT AND PLAN: Ms. Ignacia Costa is a 43-year-old lady with history of anemia, status post blood transfusion; diabetes mellitus, has hyperglycemia, came with symptomatic anemia, got blood transfusion; history of passing out; history of hypertension; empty sella syndrome; section; diagnosed with chronic myelogenous leukemia. The patient has anemia, requiring multiple units of blood transfusion, prompted investigating of the patient by Gastroenterology including esophagogastroduodenoscopy, colonoscopy, and bone marrow aspiration biopsy. Bone aspiration biopsy done on 09/24/2018 was consistent with chronic myelogenous leukemia. The patient at the point of time was seen in the office of Dr. Riggs's office, and arrangement was made that the patient will go to see [facility] for evaluation and treatment either by autologous or allogeneic transplant with young person; that will be best way of possibly cure. The patient actually set up the appointment over there, but before that she got dizzy and passing out, came with symptomatic anemia. We will continue present treatment. Gastrointestinal and deep venous thrombosis prophylaxis. Repeat labs. We will follow up. Mary Pollard MD
[2018-10-16] MEDS: Insulin Reg-LOW-Coverage SC SCH ×4 (04:11→17:11)
[2018-10-16 07:22] LABS: MEAN CELL VOLUME 87.9 fl (80.0-105.0); MEAN CORPUSCULAR HEMOGLOBIN 29.9 pg (25.0-35.0); MEAN CORPUSCULAR HGB CONC 34.1 g/dl (31.0-37.0); MEAN PLATELET VOLUME 8.3 fl (7.0-11.0); RBC 3.14 10^6/uL (3.5-6.1); RED CELL DISTRIBUTION WIDTH 15.7 % (11.5-14.5); WHITE BLOOD COUNT 4.8 10^3/uL (4.5-11.0)
[2018-10-16 07:24] LABS: HEMOGLOBIN 9.4 g/dL (12.0-16.0)
[2018-10-16 07:36] LABS: BLOOD UREA NITROGEN 9 mg/dL (7-21); CALCIUM 9.1 mg/dL (8.4-10.5); GFR NON-AFRICAN AMERICAN > 60; HDL CHOLESTEROL 20 mg/dL (29-60)
[2018-10-16 07:43] LABS: IRON 196 ug/dL (45-180)
[2018-10-16 07:46] LABS: LDL CHOLESTEROL 135 mg/dL (0-129)
[2018-10-16 07:52] LABS: % IRON SATURATION 92 % (20-55); TOTAL IRON BINDING CAPACITY 213 ug/dL (265-497)
[2018-10-16 09:32] VITALS: O2SAT 98
[2018-10-16 14:22] LABS: FOLATE 10.6 ng/mL
[2018-10-16 16:46] VITALS: BP 141/95; PULSE 88; RESP 20; TEMP 98.6
--- NOTE | 2018-10-16 19:09 | PN ---
DATE: 10/16/2018 This is [facility]'s hospital visit on the medical floor. For Dr. Riggs. SUBJECTIVE: The patient is a 43-year-old female, seen sitting up in bed with possible discharge large today after transfusion yesterday of 2 units of packed red blood cells for hemoglobin of 7.7 with the patient feeling dizzy with no falls or loss of consciousness. At present, the patient's hemoglobin is 9.4 and she is known to have a followup appointment visit with doctors at [facility] in [place] for either an autologous or allogenic transplant for her chronic myelomonocytic leukemia. She is otherwise in no acute distress. PHYSICAL EXAMINATION VITAL SIGNS: Temperature 97.4, pulse 81, respirations 18, blood pressure 126/63, pulse ox 98%. HEENT: Unremarkable. NECK: Supple. HEART: Regular rate. LUNGS: Clear. ABDOMEN: Obese, soft and nontender. EXTREMITIES: No edema. SKIN: Warm and dry. NEUROLOGIC: Awake and alert. LABORATORY DATA: The patient's labs were done. White blood cell count 4.8, hemoglobin 9.4, improved from 7.7 yesterday, hematocrit of 27.6 and platelet count of 193,000. INR 1.1. Metabolic panel within normal range. Nonfasting glucose 133. Iron saturation 92% with a hemoglobin A1c of 6.9. ASSESSMENT: The assessment for this patient is that of symptomatic anemia, status post transfusion, chronic myelogenous leukemia, history of empty sella syndrome, hypertension and diabetes mellitus. PLAN: Plan for this patient is to continue present medical regimen with further treatment as per [facility] with autologous or allogeneic transplant as indicated for her chronic myelomonocytic leukemia. Prognosis for this patient is guarded. We will monitor clinically with labs. Would discharge home as per her primary doctor, Dr. Pollard. Ricky Montes MD
== END 2018-10-16 22:56 | disposition home or self-care (01) | DRG 842 ==
LOC: ED 11:33 → ERH 14:11 → 5RSO 15:42
PROVIDERS: ADMIT Internal Medicine; ATTEND Internal Medicine
PROC: 30233N1 Transfusion of Nonautologous Red Blood Cells into Peripheral Vein, Percutaneous Approach (ICD-10-PCS; principal; 2018-10-15)
DX: C93.10 Chronic myelomonocytic leukemia not having achieved remission (principal); D63.0 Anemia in neoplastic disease; E11.65 Type 2 diabetes mellitus with hyperglycemia; F17.210 Nicotine dependence, cigarettes, uncomplicated; I10 Essential (primary) hypertension; Z79.84 Long term (current) use of oral hypoglycemic drugs

== ENCOUNTER 2018-12-08 12:24 | Observation (INO) | payer BC ==
--- NOTE | 2018-12-08 12:59 | ED PDOC ---
Arrival/HPI - General Chief Complaint: Dizziness/Lightheaded Time Seen by Provider: 12/08/18 12:33 Historian: Patient - History of Present Illness Narrative History of Present Illness (Text): 12/08/18 12:56 43 year old patient, with past medical history of hypertension, anemia, diabetes, empty cellar syndrome, many years ago, and cml leukemia, who presents to the emergency department complaining of generalized weakness, lightheadedness and shortness of breath. Patient states these symptoms are similar to previous episode caused by her anemia. She reports she usually get a blood transfusion, her last one being approximately a week ago. She notes her last chemo session was on 11/27/18. Patient denies any rectal bleeding, fevers, chills, headache, cough, abdominal pain, nausea, diarrhea, back pain, neck pain, or any other complaints. PMD: Dr. Mcallister Time/Duration: Prior to Arrival Symptom Onset: Gradual Symptom Course: Unchanged Activities at Onset: Light Context: Home Past Medical History - Provider Review Nursing Documentation Reviewed: Yes - Infectious Disease Hx of Infectious Diseases: None - Cardiac Hx Cardiac Disorders: Yes Hx Cardiac Arrhythmia: Yes Hx Hypertension: Yes - Pulmonary Hx Respiratory Disorders: Yes - Neurological Hx Neurological Disorder: Yes Other/Comment: empty sella syndrome - HEENT Hx HEENT Disorder: No - Renal Hx Renal Disorder: No - Endocrine/Metabolic Hx Endocrine Disorders: Yes Hx Diabetes Mellitus Type 2: Yes - Hematological/Oncological Hx Blood Disorders: Yes Hx Anemia: Yes Hx Cancer: Yes Other/Comment: CML - Integumentary Hx Dermatological Disorder: No - Musculoskeletal/Rheumatological Hx Musculoskeletal Disorders: Yes - Gastrointestinal Hx Gastrointestinal Disorders: Yes - Genitourinary/Gynecological Hx Genitourinary Disorders: Yes - Psychiatric Hx Psychophysiologic Disorder: No Hx Substance Use: No - Surgical History Hx Section: Yes - Anesthesia Hx Anesthesia: Yes Hx Anesthesia Reactions: No Hx Malignant Hyperthermia: No Family/Social History - Physician Review Nursing Documentation Reviewed: Yes Family/Social History: No Known Family HX Smoking Status: Light Smoker < 10 Cigarettes Daily Hx Alcohol Use: No Hx Substance Use: No Allergies/Home Meds Allergies/Adverse Reactions: Allergies shrimp Allergy (Verified 12/08/18 12:31) ANAPHYLAXIS Home Medications: Home Meds Medication Instructions Recorded Confirmed Candesartan Cilexetil [Atacand] 16 mg PO DAILY 09/03/18 12/08/18 Ascorbic Acid [Vitamin C 500 mg 500 mg PO DAILY 09/24/18 12/08/18 Tab] Cyanocobalamin (Vitamin B-12) 1,000 mcg PO DAILY 09/24/18 12/08/18 [Vitamin B-12] Ferrous Sulfate [Ferosul] 325 mg PO DAILY 09/24/18 12/08/18 metFORMIN [glucOPHAGE] 500 mg PO BID 09/24/18 12/08/18 Review of Systems - Physician Review All systems were reviewed & negative as marked: Yes - Review of Systems Constitutional: absent: Fevers Cardiovascular: absent: Chest Pain Physical Exam - Physical Exam Narrative Physical Exam (Text): 12/08/18 12:59 Constitutional: No acute distress. generally weak. Head: Normocephalic. Atraumatic. Eyes: PERRL. ENT: Moist mucous membranes. Neck: Supple. Cardiovascular: tachycardia Chest: No tenderness. Respiratory: Clear to auscultation bilaterally. GI: Soft. Nontender. Nondistended. Back: No CVA tenderness. Musculoskeletal: No tenderness or swelling of extremities. Skin: No rash. mildly pale. Neurologic: Alert, no focal deficit. Vital Signs Reviewed: Yes Vital Signs Temp Pulse Resp BP Pulse Ox 12/08/18 12:32 98.3 F 134 H 21 121/77 100 12/08/18 12:25 98.3 F 134 H 21 121/77 100 Temperature: Afebrile Blood Pressure: Normal Pulse: Tachycardic Respiratory Rate: Normal Appearance: Positive for: Well-Appearing, Non-Toxic, Comfortable, Other (mildly pale) Pain Distress: None Mental Status: Positive for: Alert and Oriented X 3 Medical Decision Making ED Course and Treatment: 12/08/18 13:00 Impression: 43 year old female who presented to the emergency department complaining of generalized weakness, lightheadedness and shortness of breath. Plan: -- BBK -- Labs -- Reassess and disposition Prior Visits: Notes and results from previous visits were reviewed. Progress Notes: Patient consented to blood transfusion. 12/08/18 13:02 EKG reviewed by me, shows: Sinus tachycardia at 118bpm with no ST/T wave changes. - Lab Interpretations I have reviewed the lab results: Yes - Scribe Statement The provider has reviewed the documentation as recorded by the Scribe Loree Suarez Provider Scribe Attestation: All medical record entries made by the Alexandra were at my direction and celia valencia dictated by me. I have reviewed the chart and agree that the record accurately reflects my personal performance of the history, physical exam, medical decision making, and the department course for this patient. I have also personally directed, reviewed, and agree with the discharge instructions and disposition. Disposition/Present on Arrival - Present on Arrival Any Indicators Present on Arrival: No History of DVT/PE: No History of Uncontrolled Diabetes: No Urinary Catheter: No History of Decub. Ulcer: No History Surgical Site Infection Following: None - Disposition Have Diagnosis and Disposition been Completed?: Yes Diagnosis: Symptomatic anemia Disposition: HOSPITALIZED Disposition Time: 14:25 Patient Plan: Observation Condition: FAIR
[2018-12-08 13:29] LABS: LYMPH # 1.4 (1.2-3.4); MEAN CELL VOLUME 85.2 fl (80.0-105.0); MEAN CORPUSCULAR HEMOGLOBIN 28.8 pg (25.0-35.0); MEAN CORPUSCULAR HGB CONC 33.8 g/dl (31.0-37.0); MEAN PLATELET VOLUME 9.8 fl (7.0-11.0); RBC 2.29 10^6/uL (3.5-6.1); RED CELL DISTRIBUTION WIDTH 15.4 % (11.5-14.5)
[2018-12-08 13:31] LABS: ALB/GLOB RATIO 0.7 (1.1-1.8); ALBUMIN 3.9 g/dL (3.0-4.8); ALT/SGPT 8 U/L (7-56); AST/SGOT 24 U/L (14-36); BLOOD UREA NITROGEN 15 mg/dL (7-21); CALCIUM 9.4 mg/dL (8.4-10.5); GFR NON-AFRICAN AMERICAN > 60
[2018-12-08 13:35] LABS: HEMOGLOBIN 6.6 g/dL (12.0-16.0)
--- NOTE | 2018-12-08 18:07 | CARD ---
APPROVED REPORT Date of service: 12/08/2018 EKG Measurement Heart [id number] <Conclusion> Sinus tachycardia Otherwise normal ECG
[2018-12-08 21:11] VITALS: BMI 34.2
[2018-12-08] MEDS ORDERED: Influenza Vaccine 60 mcg/0.5 mL SYR (4YR UP) IM ONE (21:12)
[2018-12-09 08:04] LABS: EOS % 0.3 % (1.5-5.0); LYMPH # 1.7 (1.2-3.4); LYMPH % 54.9 % (22.0-35.0); MEAN CORPUSCULAR HEMOGLOBIN 28.1 pg (25.0-35.0); MEAN PLATELET VOLUME 9.3 fl (7.0-11.0); MONO # 0.1 (0.1-0.6); MONO % 1.9 % (1.0-6.0); RBC 2.74 10^6/uL (3.5-6.1); RED CELL DISTRIBUTION WIDTH 15.2 % (11.5-14.5); WHITE BLOOD COUNT 3.2 10^3/uL (4.5-11.0)
[2018-12-09 08:10] LABS: HEMOGLOBIN 7.7 g/dL (12.0-16.0)
[2018-12-09 08:16] LABS: ALB/GLOB RATIO 0.7 (1.1-1.8); ALBUMIN 3.5 g/dL (3.0-4.8); ALT/SGPT 6 U/L (7-56); AST/SGOT 23 U/L (14-36); BLOOD UREA NITROGEN 14 mg/dL (7-21); CALCIUM 8.9 mg/dL (8.4-10.5); GFR NON-AFRICAN AMERICAN > 60
[2018-12-09] MEDS ORDERED: POLYETHYLENE GLYCOL 3350 17 GM/Dose PACKET PO SCH (11:00)
[2018-12-09] MEDS: guaiFENesin-DM 600-30 mg ER Tab PO SCH ×2 (12:03→17:00)
[2018-12-09 14:27] VITALS: BP 100/62; PULSE 85
[2018-12-09 14:29] VITALS: O2SAT 100
[2018-12-09 16:44] VITALS: RESP 18; TEMP 98.6
[2018-12-09 17:48] LABS: HEMOGLOBIN 9.4 g/dL (12.0-16.0); MEAN CELL VOLUME 85.9 fl (80.0-105.0); MEAN CORPUSCULAR HEMOGLOBIN 28.8 pg (25.0-35.0); MEAN CORPUSCULAR HGB CONC 33.6 g/dl (31.0-37.0); MEAN PLATELET VOLUME 9.3 fl (7.0-11.0); RBC 3.26 10^6/uL (3.5-6.1); RED CELL DISTRIBUTION WIDTH 15.2 % (11.5-14.5); WHITE BLOOD COUNT 4.1 10^3/uL (4.5-11.0)
--- NOTE | 2018-12-09 18:47 | HP ---
DATE OF EXAM: 12/08/2018 The patient is seen and examined at the bedside on 12/08/2018. CHIEF COMPLAINT: Dizziness, lightheadedness, and feeling of passing out. HISTORY OF PRESENT ILLNESS: Ms. Ignacia Costa is a 43-year-old female, with past medical history of hypertension; hyperlipidemia; diabetes mellitus; empty sella syndrome; sections; and history of CML leukemia, getting treatment from [facility], came to the emergency department complaining of generalized weakness, lightheadedness, and shortness of breath. The patient states that these symptoms are similar to previous episode caused by her anemia, now she knows the signs and symptoms for symptomatic anemia. She reports that she rarely gets blood transfusion; her last one being approximately one week ago. She noticed her last immuno session was on 11/27/2018. The patient denies any rectal bleeding, fever or chills. No hematuria. No hematochezia. No nausea, vomiting, or diarrhea. No abdominal pain. PAST MEDICAL HISTORY: As above; hypertension, empty sella syndrome, diabetes mellitus of new onset, past history of CML, and severe infection. FAMILY HISTORY: Father and mother noncontributory. HABITS: Light smoker, less than 10 cigarettes per day. Alcohol, no. Substance abuse, no. ALLERGIES: THE PATIENT IS ALLERGIC WITH SHRIMP. HOME MEDICATIONS: Atacand, ascorbic acid, cyanocobalamin, ferrous sulfate, and Glucophage. REVIEW OF SYSTEMS: The patient was seen and examined at the bedside in her room. Already got blood transfusion in the ER, looking a bit better. No fever. No chills. No hematuria. No hematochezia. No headache. No dizziness. No chest pain. No palpitation. PHYSICAL EXAMINATION: VITAL SIGNS: Temperature 98.3, pulse 134, respiratory rate 21, blood pressure 120/77, and pulse oximetry 100%. HEENT: Head is normocephalic and atraumatic. Eyes; PERRLA. Extraocular muscles are intact. Conjunctivae clear. Nose patent. Mucous membranes moist. NECK: Supple. No carotid bruits. No JVD or thyromegaly. CHEST: Bilaterally symmetrical. HEART: S1 and S2 positive. LUNGS: Clear to auscultation. ABDOMEN: Soft. Bowel sounds present. No organomegaly. EXTREMITIES: No edema. No cyanosis. NEUROLOGIC: The patient is awake, alert, and moving all four extremities. No focal deficit. LABORATORY DATA: White blood cells 4.0, hemoglobin 6.6, hematocrit 19.5, and platelets 147. Sodium 137, potassium 3.8, BUN 15, creatinine 0.8, and glucose 181. ASSESSMENT AND PLAN: Ms. Ignacia Costa is a 43-year-old female with leukopenia; anemia, symptomatic; diabetes mellitus type 2, non-insulin requiring; and normal liver function test, came with symptomatic anemia, hemoglobin 6. Got one unit of packed red blood cells in the emergency room. Has history of hypertension; empty sella syndrome; section; chronic myeloid leukemia, getting treatment from [place], last chemotherapy was on 11/27/2018. Gastrointestinal and deep venous thrombosis prophylaxis; hematology oncology consult called. We will give more blood transfusion and we will follow up. Mary Pollard MD
--- NOTE | 2018-12-11 01:32 | DS ---
The patient was seen and examined at the bedside on 12/09/2018. CHIEF COMPLAINT: She came with shortness of breath and dizziness. HISTORY OF PRESENT ILLNESS: Ms. Ignacia Costa is very well known to me, 43 years old female, with past medical history of hypertension, hypercholesterolemia, diabetes mellitus, diverticular syndrome, sections, and history of CML, came with dizziness, lightheadedness, and feeling of passing out. She had so many times symptomatic anemia attacks that she knows the symptoms. She came, got 1 blood unit in ER, other 2 units got on the floor, after that she said she is feeling better. Discharged home. Follow up with her [facility] for treatment of CML and follow up with primary care physician. PAST MEDICAL HISTORY: As above, hypertension, hypercholesterolemia, diverticular syndrome, CML, diabetes mellitus, history of section. FAMILY HISTORY: Father and mother, noncontributory. HABITS: Light smoker, less than 10 cigarettes per day. Alcohol, no. Substance abuse, no. ALLERGIES: THE PATIENT IS ALLERGIC TO SHRIMP. HOME MEDICATIONS: Reviewed by me. REVIEW OF SYSTEMS: The patient was seen and examined at the bedside, looking comfortable. No more feeling of dizziness, passing out, lightheadedness. No fever. No chills. No hematuria or hematochezia. No headache or dizziness. No chest pain. No palpitation. PHYSICAL EXAMINATION: VITAL SIGNS: Temperature 98.6, pulse 85, blood pressure 100/62, respiratory rate 18. HEENT: Head is normocephalic, atraumatic. Eyes: PERRLA. Extraocular muscles are intact. Conjunctivae clear. Nose patent. Mucous membranes moist. NECK: Supple. No carotid bruit. No JVD or thyromegaly. CHEST: Bilaterally symmetrical. HEART: S1 and S2 positive. LUNGS: Clear to auscultation. ABDOMEN: Soft. Bowel sounds present. No organomegaly. EXTREMITIES: No edema. No cyanosis. NEUROLOGICAL: The patient is awake and alert. Follows simple commands. LABORATORY DATA: White blood cell 12.1; hemoglobin on admission was 6.6, after 3 units of blood it is 9.4; hematocrit 28; platelets 161. Sodium 138, potassium 3.9, BUN 14, creatinine 0.8, glucose 133. ASSESSMENT AND PLAN: Ms. Ignacia Costa is a 43-year-old lady with anemia, hemoglobin on admission was 6.6, got 3 units of blood, then became 9.4; history of diabetes mellitus; chronic myelogenous leukemia; hypertension; hypercholesterolemia; got 3 units of blood, improved; came with feelings of syncope, lightheadedness, passing out, improved, discharged home, follow up with [facility] and her primary care physician. Mary Pollard MD
--- NOTE | 2018-12-11 08:16 | CON ---
DATE: 12/09/2018 HISTORY OF PRESENT ILLNESS: This is a 43-year-old female who was admitted to the emergency room with dizziness, lightheaded, and also feeling sense of syncope or passing out. The patient was seen in the ER and advised admission as the hemoglobin is only 6.6. Past medical history is significant for hypertension, hyperlipidemia, diabetes, empty sella turcica syndrome, and section. The patient has a diagnosis of chronic myelomonocytic leukemia for which the patient was referred to [facility], where she is being managed by . The patient is in the process of being assessed for bone marrow transplant both allogeneic and unrelated marrow registries are being exclude at this point in time. The patient has been started on Dacogen. She has been getting that 5 days in a room and she has gotten two months worth of that therapy and her transfusion requirements have decreased not as often as she was before she was getting blood transfusions almost twice a week. She had been seen by the doctor in [place] as an outpatient last week and she has an appointment to see them again and I told her to have them give us a call, so I can give them the input as far as counts are concern. The patient states that the symptoms are similar to the previous episodes when she had similar complaints and was found to be severely anemic. The patient did get blood transfusion about a week ago. She denies any history of rectal bleeding, hematochezia, or hematuria. No nausea, vomiting, or diarrhea. No abdominal pain. PAST MEDICAL HISTORY: Significant for chronic myelomonocytic leukemia, currently on Dacogen therapy at [facility] and is now admitted here for significant anemia. The patient has been getting Dacogen five days in a row every month. She has had two months worth of therapy. FAMILY HISTORY: Noncontributory. HABITS: The patient is a light smoker, smokes less than 10 cigarettes a day. No alcohol or substance abuse. ALLERGIES: THE PATIENT IS ALLERGIC TO SHRIMP. HOME MEDICATIONS: Includes Atacand, ascorbic acid, cyanocobalamin, ferrous sulfate, and Glucophage. REVIEW OF SYSTEMS: A 12 system review of systems was done, except for dizziness. The patient has been otherwise not having any other major complaints except what is mentioned in the HPI. LABORATORY DATA: From this morning reveals white count of 4, hemoglobin 6.6, hematocrit 19, and platelet 147,000. Electrolytes are unremarkable. The patient is in the process of getting packed red blood cells; however, the posttransfusion CBC as above. ASSESSMENT, NOTES, AND PLAN: This is a 43-year-old female with documented chronic myelomonocytic leukemia, which is a form of myelodysplastic syndrome and currently on Dacogen therapy in the process of being assessed for transplant from siblings or marrow registry at this time. The patient also has a history of diabetes mellitus noninsulin dependent with normal liver functions, history of hypertension, empty sella turcica syndrome, and history of section in the past. I discussed in detail with the patient that she should continue the current treatments and probably adding a drug like Venetoclax may be of some value while waiting for the transplant. I told her that she could discuss that with her current treating attending, . I also assured that if she needs to continue her Dacogen that is what she is going to be on for the foreseeable future, we could give the Dacogen here in the outpatient clinic. The patient is going to discuss that as well with her attending and her concerned. We will check the posttransfusion CBC after the transfusions given, so copy of this can be sent to her attending. Thank you for allowing me to participate in the management of this patient. Katharina Riggs MD
== END 2018-12-09 18:26 | disposition home or self-care (01) ==
LOC: ED 12:24 → ERH 14:25 → 5RNO 15:39
PROVIDERS: ADMIT Internal Medicine; ATTEND Internal Medicine
DX: D64.9 Anemia, unspecified (principal); C92.10 Chronic myeloid leukemia, BCR/ABL-positive, not having achieved remission; E11.9 Type 2 diabetes mellitus without complications; E78.5 Hyperlipidemia, unspecified; I10 Essential (primary) hypertension; F17.210 Nicotine dependence, cigarettes, uncomplicated; Z79.84 Long term (current) use of oral hypoglycemic drugs
CPT/HCPCS: 36415; 36430; 80053; 82948; 85025; 85027; 86850; 86900; 86920; 93005; 99285; G0378; P9016